=== PATIENT | female | born 1940 | race Caucasian/White ===

== ENCOUNTER → 2019-08-10 07:23 | Outpatient (CLI) | payer MEDICARE, SELFPAY ==
[2019-08-10 08:29] LABS: BUN Creatinine Ratio 31.4 (6-22); Blood Urea Nitrogen 22 mg/dL (7-17); Calcium 9.7 mg/dL (8.4-10.2); Carbon Dioxide 28 mmol/L (22-32); Chloride 98 mmol/L (98-107); Cholesterol 144 mg/dL (140-199); Estimated Glomerular Filt Rate > 60.0 mL/min (>60); Glucose 89 mg/dL (80-110); HDL Cholesterol 74 mg/dL (40-60); HEMOLYSIS < 15 (0-50); LDL Cholesterol Calculated 58 mg/dL (<100); Potassium 4.2 mmol/L (3.4-5.1); Sodium 134 mmol/L (137-145); Triglycerides 58 mg/dL (35-150)
[2019-08-10 09:00] LABS: Thyroid Stimulating Hormone 5.13 uIU/mL (0.47-4.68)
== END ==
PROVIDERS: Visit Provider Nurse Practitioner
DX: I10 Essential (primary) hypertension (principal); E03.9 Hypothyroidism, unspecified; E78.5 Hyperlipidemia, unspecified; Z79.899 Other long term (current) drug therapy
CPT/HCPCS: 36415; 80048; 80061; 84443

== ENCOUNTER → 2019-11-29 08:30 | Outpatient (CLI) | payer MEDICARE, SELFPAY ==
[2019-11-29 10:26] LABS: Thyroid Stimulating Hormone 4.32 uIU/mL (0.47-4.68)
== END ==
PROVIDERS: PCP Nurse Practitioner; Referring Provider Nurse Practitioner; Visit Provider Nurse Practitioner
DX: Z79.899 Other long term (current) drug therapy (principal); E03.9 Hypothyroidism, unspecified
CPT/HCPCS: 36415; 84443

== ENCOUNTER → 2020-04-20 13:20 | Outpatient (CLI) | payer MEDICARE, SELFPAY | PROVIDERS: PCP Nurse Practitioner; Referring Provider Nurse Practitioner; Visit Provider Nurse Practitioner | DX: M85.832 Other specified disorders of bone density and structure, left forearm (principal); Z78.0 Asymptomatic menopausal state; E07.9 Disorder of thyroid, unspecified | CPT/HCPCS: 77080 ==

== ENCOUNTER → 2020-04-25 17:09 | Outpatient (CLI) | payer MEDICARE, SELFPAY ==
--- NOTE | 2020-04-25 17:23 | DI.MG.S_ITS ---
Patient Name: ALONA CERDA date: 1940 Sex: F Attending Physician: Shan Indications: Date: 04/25/2020 17:14 At the request of: LAURE MOJICA Procedure: MM screening mammo BI BILATERAL DIGITAL SCREENING MAMMOGRAM 3D/2D WITH CAD: 04/25/2020 CLINICAL: Routine screening. Comparison is made to exams dated: 12/07/2018 mammogram, 12/03/2017 mammogram, and 12/02/2016 mammogram - outside location. There are scattered fibroglandular elements in both breasts. Current study was also evaluated with a Computer Aided Detection (CAD) system. There is possible architectural distortion in the left breast middle depth superior region seen on the mediolateral oblique view only. No other significant masses, calcifications, or other findings are seen in either breast. IMPRESSION: INCOMPLETE: NEEDS ADDITIONAL IMAGING EVALUATION The possible architectural distortion in the left breast is indeterminate. Additional views with possible ultrasound are recommended. This exam was interpreted at Station ID: [id number]. NOTE: For mammograms, a report in lay terms will be sent to the patient. Approximately 15% of breast malignancies will not be visualized mammographically. In the management of a palpable breast mass, a negative mammogram must not discourage biopsy of a clinically suspicious lesion. Electronically Signed By: Vlad Echavarria M.D. slc/:04/25/2020 18:32:07 letter sent: Additional Imaging Needed Continued Report - Page 2 of 2 Patient Name: ALONA CERDA date: 1940 Sex: F Attending Physician: Shan Indications: Date: 04/25/2020 17:14 At the request of: LAURE MOJICA Procedure: MM screening mammo BI ACR BI-RADS Category 0: Incomplete 3340F
== END ==
PROVIDERS: PCP Nurse Practitioner; Referring Provider Nurse Practitioner; Visit Provider Nurse Practitioner
DX: Z12.31 Encounter for screening mammogram for malignant neoplasm of breast (principal)
CPT/HCPCS: 77063; 77067

== ENCOUNTER → 2020-05-19 13:46 | Outpatient (CLI) | payer MEDICARE, SELFPAY ==
--- NOTE | 2020-05-19 13:47 | DI.US.S_ITS ---
ULTRASOUND OF LEFT BREAST: 05/19/2020 CLINICAL: Patient returns today to evaluate a focal asymmetry in the left breast. Comparison is made to exams dated: 05/19/2020 mammogram, 04/25/2020 mammogram - [facility], 12/07/2018 mammogram, 12/03/2017 mammogram, and 12/02/2016 mammogram - outside location. Color flow and real-time ultrasound of the left breast were performed. Loza scale images of the real-time examination were reviewed. No significant abnormalities were seen sonographically in the left breast. IMPRESSION: NEGATIVE There is no sonographic evidence of malignancy. There is no abnormality seen in the left breast to correspond with the no longer visualized possible architectural distortion seen on previous mammography. This likely represents normal fibroglandular tissue. A 1 year screening mammogram is recommended. Findings and recommendations were conveyed to the patient during today's evaluation. This exam was interpreted at Station ID: [id number]. Electronically Signed By: Lamont Washington M.D. aty/:05/19/2020 14:45:18 letter sent: Normal Exam Ultrasound BI-RADS: 1 Negative
--- NOTE | 2020-05-19 13:47 | DI.MG.S_ITS ---
UNILATERAL LEFT DIGITAL DIAGNOSTIC MAMMOGRAM 3D/2D WITH ADDITIONAL VIEWS: 05/19/2020 CLINICAL: Additional evaluation requested from prior study. Comparison is made to exams dated: 04/25/2020 mammogram - [facility], 12/07/2018 mammogram, and 12/03/2017 mammogram - outside location. There are scattered fibroglandular elements in left breast. Comparison is made to exams dated: 01/13/2019 mammogram, 05/20/2018 mammogram, and 04/25/2018 mammogram - [facility]. The tissue of both breasts is heterogeneously dense. This may lower the sensitivity of mammography. The previously described possible architectural distortion in the left breast middle depth superior region seen on the mediolateral oblique view only is not reproduced and presumably represented superimposed breast tissue. This is not confirmed in additional views. No other significant masses or calcifications are seen in the breast. IMPRESSION: INCOMPLETE: NEEDS ADDITIONAL IMAGING EVALUATION An ultrasound is recommended to confirm the no longer seen possible architectural distortion in the left breast middle depth superior region which is scheduled to immediately follow this study. This exam was interpreted at Station ID: [id number]. NOTE: For mammograms, a report in lay terms will be sent to the patient. Approximately 15% of breast malignancies will not be visualized mammographically. In the management of a palpable breast mass, a negative mammogram must not discourage biopsy of a clinically suspicious lesion. Electronically Signed By: Lamont Washington M.D. aty/:05/19/2020 14:43:34 ACR BI-RADS Category 0: Incomplete 3340F
== END ==
PROVIDERS: PCP Nurse Practitioner; Referring Provider Nurse Practitioner; Visit Provider Nurse Practitioner
DX: R92.8 Other abnormal and inconclusive findings on diagnostic imaging of breast (principal)
CPT/HCPCS: 76642; 77065; G0279

== ENCOUNTER → 2020-07-18 07:11 | Outpatient (CLI) | payer MEDICARE, SELFPAY ==
[2020-07-18 08:23] LABS: Alanine Aminotransferase 25 IU/L (<35); Albumin Globulin Ratio 1.5 (1.0-2.8); Alkaline Phosphatase 82 U/L (38-126); Aspartate Aminotransferase 30 IU/L (14-36); Bilirubin Total 0.7 mg/dL (0.2-1.3); Blood Urea Nitrogen 18 mg/dL (7-17); Calcium 9.4 mg/dL (8.4-10.2); Carbon Dioxide 30 mmol/L (22-32); Chloride 99 mmol/L (98-107); Cholesterol 138 mg/dL (140-199); Estimated Glomerular Filt Rate > 60.0 mL/min (>60); Globulin 2.7 g/dL (1.7-4.1); Glucose 97 mg/dL (80-110); HDL Cholesterol 67 mg/dL (40-60); HEMOLYSIS < 15 (0-50); LDL Cholesterol Calculated 58 mg/dL (<100); Potassium 4.2 mmol/L (3.4-5.1); Sodium 132 mmol/L (137-145); Total Protein 6.7 g/dL (6.3-8.2); Triglycerides 67 mg/dL (35-150)
[2020-07-18 08:56] LABS: Thyroid Stimulating Hormone 4.63 uIU/mL (0.47-4.68)
[2020-07-18 14:40] LABS: Microalbumin Urine Random < 0.6 mg/dL (0-1.6)
[2020-07-18 14:42] LABS: Creatinine Urine Random 45.6 mg/dL
== END ==
PROVIDERS: PCP Nurse Practitioner; Referring Provider Nurse Practitioner; Visit Provider Nurse Practitioner
DX: E03.9 Hypothyroidism, unspecified (principal); E78.5 Hyperlipidemia, unspecified; I10 Essential (primary) hypertension; Z79.899 Other long term (current) drug therapy
CPT/HCPCS: 36415; 80053; 80061; 82043; 82570; 84443

== ENCOUNTER → 2020-09-08 12:10 | Outpatient (CLI) | payer MEDICARE, SELFPAY ==
[2020-09-08] MEDS: COVID-19 VACC #1, MRNA(MOD) 100 MCG/0.5 ML VIAL IM (12:20)
== END ==
PROVIDERS: PCP Nurse Practitioner; Visit Provider Internal Medicine
DX: Z23 Encounter for immunization (principal)
CPT/HCPCS: 0011A; 91301

== ENCOUNTER → 2020-10-06 12:32 | Outpatient (CLI) | payer MEDICARE, SELFPAY ==
[2020-10-06] MEDS: COVID-19 VACC #2, MRNA(MOD) 100 MCG/0.5 ML VIAL IM (12:38)
== END ==
PROVIDERS: PCP Nurse Practitioner; Visit Provider Internal Medicine
DX: Z23 Encounter for immunization (principal)
CPT/HCPCS: 0012A; 91301

== ENCOUNTER → 2020-11-21 15:41 | Outpatient (CLI) | payer MEDICARE, SELFPAY ==
--- NOTE | 2020-11-21 15:44 | DI.RAD.S_ITS ---
PROCEDURE: XR LUMBAR SPINE 2-3V INDICATIONS: Evaluate worsening left hip and lower back pain TECHNIQUE: 3 views of the lumbar spine were acquired. COMPARISON: None. FINDINGS: Bones: There is posterior lateral gertrude and pedicle screw fixation of the lowest 2 lumbar vertebrae. Above this, is an abnormal appearing vertebra, which may represent a congenital fusion anomaly. This results in some curvature of the spine. No acute vertebral body compression fractures. No suspicious bony lesions. Multilevel degenerative disc space loss and posterior facet arthropathy. Soft tissues: Overlying bowel gas pattern is normal. No suspicious soft tissue calcifications. IMPRESSION: 1. Consider congenital fusion anomaly of a mid lumbar vertebra. 2. No evidence acute bony abnormality of the lumbar spine. If clinical suspicion and/or symptoms persist, further assessment with repeat plain films, or advanced imaging (e.g., CT, MRI, or bone scan) may be helpful for further assessment. Dictated by: Marky Gold M.D. on 11/21/2020 at 17:06 Approved by: Marky Gold M.D. on 11/21/2020 at 17:08
--- NOTE | 2020-11-21 15:44 | DI.RAD.S_ITS ---
PROCEDURE: XR HIP W PEL IF DONE LT 2V INDICATIONS: Evaluate worsening left hip and lower back pain TECHNIQUE: AP pelvis with lateral view(s) of the left hip(s). COMPARISON: None. FINDINGS: Bones: Expected appearance of total left hip arthroplasty. Lower lumbar fusion. No evidence of hardware failure or loosening. No fractures or dislocations. Pelvic ring appears intact. No suspicious bony lesions. Soft tissues: The visualized bowel gas pattern is normal. No suspicious soft tissue calcifications. IMPRESSION: Expected appearance of total left hip arthroplasty. No evidence acute bony abnormality of the pelvis and left hip. If clinical suspicion and/or symptoms persist, further assessment with repeat plain films, or advanced imaging (e.g., CT, MRI, or bone scan) may be helpful for further assessment. Dictated by: Marky Gold M.D. on 11/21/2020 at 17:05 Approved by: Marky Gold M.D. on 11/21/2020 at 17:05
== END ==
PROVIDERS: PCP Nurse Practitioner; Referring Provider Nurse Practitioner; Visit Provider Nurse Practitioner
DX: M54.5 Low back pain (principal); M47.816 Spondylosis without myelopathy or radiculopathy, lumbar region; M25.552 Pain in left hip; Z96.642 Presence of left artificial hip joint; Z98.1 Arthrodesis status
CPT/HCPCS: 72100; 73502

== ENCOUNTER → 2020-12-16 10:05 | Outpatient (CLI) | payer MEDICARE, SELFPAY ==
[2020-12-16 12:11] LABS: COVID19 -Nasal RAPID Negative (Negative)
== END ==
PROVIDERS: Family Provider Nurse Practitioner; PCP Nurse Practitioner; Referring Provider Student in an Organized Health Care Education/Training Program; Visit Provider Student in an Organized Health Care Education/Training Program
DX: Z01.812 Encounter for preprocedural laboratory examination (principal); Z20.822 Contact with and (suspected) exposure to COVID-19
CPT/HCPCS: 87635; C9803

== ENCOUNTER 2020-12-19 07:07 | Day surgery (SDC) | payer MEDICARE, SELFPAY ==
[2020-12-19] MEDS: CATARACT EYE COMPOUND (10 DROPS/SYRINGE) 3 DROPS EYE-OP (07:18)
[2020-12-19] MEDS: PROPARACAINE 0.5% OPHTH SOL 2 DROPS EYE-OP (07:18)
[2020-12-19 07:37] VITALS: BP 136/73; PULSE 78; RESP 16; TEMP 36.3; O2SAT 100
[2020-12-19 07:43] VITALS: BMI 30.2
--- NOTE | 2020-12-19 08:07 | P.OP_ITS ---
Operative Date/Time/Diagnoses Pre-op diagnosis: Nuclear Cataract Left eye Post-op diagnosis: same Procedure & Clinicians Same procedure as scheduled: Yes Surgeon: Norris Lee Anesthesia Type: MAC +/- and Sedation Operative Notes Procedure in detail: Patient brought to the operating suite. Tetracaine drops placed in the left eye. Marking instrument was used to purvi the vertical and horizontal meridains. Patient was prepped and draped in sterile manner. Wire lid speculum was placed in the eye. The marking instrument was used to purvi the 10 degree meridian. Betadine drops were placed on the eye. This was irrigated. Lidocaine jelly was placed on the eye. A paracentesis port was created with a side-port blade. 0.1 mL 1% preservative free lidocaine was injected into the anterior chamber. The anterior chamber was deepened with viscoelastic. 2.6 mm keratome was used to create a temporal clear corneal incision. Cystotome and Utrata forceps were used to create continuous tear capsulorrhexis. Balanced salt solution was used to hydro dissect the nucleus. The phacoemulsification handpiece was inserted and the nucleus was removed using the stop and chop technique. The irrigation aspiration handpiece was inserted and the remaining cortex was removed. Anterior chamber was deepened with viscoelastic. An Umana [id number] intraocular lens with a power of 21.0 was injected into the capsular bag. Irrigation aspiration handpiece was inserted and the remaining viscoelastic was removed. The lens was rotated to the 10 degree meridian. Incision was hydrated with balanced salt solution and found to be leak free with pressure with Weck- Anne Marie sponges. 0.1 mL Vigamox injected anterior chamber. 0.3 mL Kenalog 10 mg was injected subconjunctivally. Lid speculum was removed. The patient left the operating room in excellent condition. Complications: none Post-operative Condition: stable Disposition: same day surgery
--- NOTE | 2020-12-19 08:07 | PM.PREOP ---
Pre-operative Note Interval Note History & Physical reviewed/Exam performed by Physician: Yes Changes to H&P: No
[2020-12-19] MEDS: CHONDROIDTIN/SOD HYALURONATE 1.05 ML SYRINGE INTRAOCULA (08:25)
[2020-12-19] MEDS: PHENYLEPHRINE/LIDOCAINE VIAL (OR) 0.2 ML EYE-OP (08:25)
[2020-12-19] MEDS: MOXIFLOXACIN INJ 4 MG/0.8 ML VIAL 0.5 MG EYE-OP (08:25)
[2020-12-19] MEDS: BALANCED SALT IRRIG SOLN NO.2 500 ML, EPINEPHrine 1 MG IRR (08:26)
[2020-12-19] MEDS: LIDOCAINE 2% (GLYDO) 6 ML GEL TOP (08:26)
[2020-12-19] MEDS: TRIAMCINOLONE 50 MG/5 ML VIAL INJ (08:26)
[2020-12-19] MEDS: TETRACAINE 0.5% OPHTH DROPS 4 ML 2 DROPS EYE-OP (08:26)
[2020-12-19 08:45] VITALS: BP 127/67; PULSE 72; RESP 13; TEMP 36.3; O2SAT 100
== END 2020-12-19 09:06 | disposition home or self-care (01) ==
PROVIDERS: Family Provider Nurse Practitioner; PCP Nurse Practitioner; Referring Provider Nurse Practitioner; Visit Provider Ophthalmology
PROC: (CPT 66984; principal; 2020-12-19 08:15)
DX: H25.12 Age-related nuclear cataract, left eye (principal); I10 Essential (primary) hypertension; E03.9 Hypothyroidism, unspecified; E78.00 Pure hypercholesterolemia, unspecified
CPT/HCPCS: 66984; J0171; J2250; J3010; J3301; V2787

== ENCOUNTER → 2021-01-01 11:42 | Outpatient (CLI) | payer MEDICARE, SELFPAY ==
[2021-01-01 12:32] LABS: COVID19 -Nasal RAPID Negative (Negative)
== END ==
PROVIDERS: PCP Nurse Practitioner; Visit Provider Student in an Organized Health Care Education/Training Program
DX: Z01.812 Encounter for preprocedural laboratory examination (principal); Z20.822 Contact with and (suspected) exposure to COVID-19
CPT/HCPCS: 87635; C9803

== ENCOUNTER 2021-01-02 06:21 | Day surgery (SDC) | payer MEDICARE, SELFPAY ==
[2021-01-02] MEDS: PROPARACAINE 0.5% OPHTH SOL 2 DROPS EYE-OP (07:01)
[2021-01-02] MEDS: CATARACT EYE COMPOUND (10 DROPS/SYRINGE) 3 DROPS EYE-OP (07:02)
[2021-01-02 07:08] VITALS: BP 165/70; PULSE 73; RESP 16; TEMP 36.4; O2SAT 100; BMI 26.6
--- NOTE | 2021-01-02 07:26 | PM.PREOP ---
Pre-operative Note Interval Note History & Physical reviewed/Exam performed by Physician: Yes Changes to H&P: No
--- NOTE | 2021-01-02 07:26 | P.OP_ITS ---
Operative Date/Time/Diagnoses Pre-op diagnosis: Nuclear cataract right eye Procedure & Clinicians Procedure: Cataract Surgery Same procedure as scheduled: Yes Surgeon: Norris Lee Anesthesia Type: MAC +/- and Sedation Operative Notes Procedure in detail: Patient brought to the operating suite. Tetracaine drops placed in the right eye. Marking instrument was used to purvi vertical and horizontal meridians. Patient was prepped and draped in sterile manner. Wire lid speculum was placed in the eye. Marking instrument was used to purvi 15 degree meridian. Betadine drops were placed on the eye. This was irrigated. Lidocaine jelly was placed on the eye. A paracentesis port was created with a side-port blade. 0.1 mL 1% preservative free lidocaine was injected into the anterior chamber. The anterior chamber was deepened with viscoelastic. 2.6 mm keratome was used to create a temporal clear corneal incision. Cystotome and Utrata forceps were used to create continuous tear capsulorrhexis. Balanced salt solution was used to hydro dissect the nucleus. The phacoemulsification handpiece was inserted and the nucleus was removed using the stop and chop technique. The irrigation aspiration handpiece was inserted and the remaining cortex was removed. Anterior chamber was deepened with viscoelastic. An Umana [id number] intraocular lens with a power of 22.5 was injected into the capsular bag. Irrigation aspiration handpiece was inserted and the remaining viscoelastic was removed. The lens was rotated to the 15 degree meridian. Incision was hydrated with balanced salt solution and found to be leak free with pressure with Weck- Anne Marie sponges. 0.1 mL Vigamox injected anterior chamber. 0.3 mL Kenalog 10 mg was injected subconjunctivally. Lid speculum was removed. The patient left the operating room in excellent condition. Complications: none Post-operative Condition: stable Disposition: same day surgery
[2021-01-02] MEDS: MOXIFLOXACIN INJ 4 MG/0.8 ML VIAL 0.5 MG EYE-OP (07:53)
[2021-01-02] MEDS: PHENYLEPHRINE/LIDOCAINE VIAL (OR) 0.2 ML EYE-OP (07:53)
[2021-01-02] MEDS: TRIAMCINOLONE 50 MG/5 ML VIAL INJ (07:53)
[2021-01-02] MEDS: CHONDROIDTIN/SOD HYALURONATE 1.05 ML SYRINGE INTRAOCULA (07:53)
[2021-01-02] MEDS: LIDOCAINE 2% (GLYDO) 6 ML GEL TOP (07:53)
[2021-01-02] MEDS: TETRACAINE 0.5% OPHTH DROPS 4 ML 2 DROPS EYE-OP (07:54)
[2021-01-02] MEDS: BALANCED SALT IRRIG SOLN NO.2 500 ML, EPINEPHrine 1 MG IRR (07:55)
[2021-01-02 08:04] VITALS: BP 138/70; PULSE 62; RESP 14; TEMP 36.6; O2SAT 100
[2021-01-02 08:21] VITALS: BP 126/71; PULSE 61; RESP 14; TEMP 36.1; O2SAT 100
== END 2021-01-02 08:25 | disposition home or self-care (01) ==
PROVIDERS: PCP Nurse Practitioner; Referring Provider Ophthalmology; Visit Provider Ophthalmology
PROC: (CPT 66984; principal; 2021-01-02 07:45)
DX: H25.11 Age-related nuclear cataract, right eye (principal); E03.9 Hypothyroidism, unspecified; E78.00 Pure hypercholesterolemia, unspecified; I10 Essential (primary) hypertension
CPT/HCPCS: 66984; J0171; J2250; J3010; J3301; V2787

== ENCOUNTER → 2021-02-16 10:39 | Outpatient (CLI) | payer MEDICARE, SELFPAY ==
[2021-02-16 12:54] LABS: Thyroid Stimulating Hormone 2.94 uIU/mL (0.47-4.68)
== END ==
PROVIDERS: PCP Nurse Practitioner; Referring Provider Nurse Practitioner; Visit Provider Nurse Practitioner
DX: E03.9 Hypothyroidism, unspecified (principal); E78.5 Hyperlipidemia, unspecified; I10 Essential (primary) hypertension; Z79.899 Other long term (current) drug therapy
CPT/HCPCS: 36415; 84443

== ENCOUNTER → 2021-03-10 14:08 | Outpatient (CLI) | payer MEDICARE, SELFPAY ==
--- NOTE | 2021-03-10 14:09 | DI.MRI.S_ITS ---
PROCEDURE: MR LUMBAR SPINE WO CON INDICATIONS: Persistent pain lumbar spine TECHNIQUE: Noncontrast sagittal T1 spin echo and T2 fast echo, sagittal STIR, axial T1 and T2 fast spin echo through the lumbar spine. In cases with scoliosis, additional coronal T2 fast spin echo may be performed. COMPARISON: [facility], CR, XR LUMBAR SPINE 2-3V, 11/21/2020, 15:50. FINDINGS: Image quality: This examination is limited by involuntary motion artifact. There is artifact associated with the metallic hardware. Alignment and Curvature: There is olki-ia-bdzmwekh S shaped scoliosis, with a primary dextroconvex thoracolumbar component. There is grade 1/2 retrolisthesis seen at the L2-L3 level. Minimal retrolisthesis is seen at L3-L4. Bone Marrow: Marrow is of normal overall signal. No acute vertebral body compression fractures. Spinal Cord: Conus medullaris terminates at the L1 level. Visualized cord demonstrates normal signal and size. Paraspinous Soft Tissues: No paravertebral masses. T12-L1: Hsqy-[id number] loss of disc height and disc signal can be seen. Mild to moderate disc bulge is seen, with a mild central disc protrusion. Mild to moderate facet hypertrophy is seen. There is moderate right-sided and moderate to severe left-sided neural foraminal narrowing seen. There is a degree of compression seen upon the exiting left T12 nerve root. Mild central canal narrowing is seen. L1-L2: At least moderate loss of disc height and disc signal can be seen. Reactive marrow endplate changes are seen which are hypointense on T1-weighted imaging and hyperintense on T2 weighted imaging, which is most consistent with edema (Modic type I changes). At least moderate disc bulge is seen, which is eccentric to the left. There is a central disc protrusion. Moderate facet joint hypertrophy is seen. Associated hypertrophy of the ligamentum flavum can be seen. There is at least moderate right-sided and moderate to severe left-sided neural foraminal narrowing seen. There is a degree of compression seen upon the exiting left L1 nerve root. Moderate to severe central canal narrowing is seen at this level, as on series 7, image 13. There is compression seen upon the conus medullaris. L2-L3: Moderate to severe loss of disc height and disc signal can be seen. At least moderate disc bulge is seen at this level. Moderate facet joint hypertrophy is seen. There is moderate to severe bilateral neural foraminal narrowing seen, right worse than left. There is a degree of compression seen upon the exiting nerve roots. Moderate to severe central canal narrowing is seen, as on series 7, image 17. L3-L4: Moderate to severe loss of disc height and disc signal can be seen on the right side. Moderate disc bulge is seen, with a central disc protrusion. Moderate to prominent facet hypertrophy is seen at this level. There is moderate to severe right-sided neural foraminal narrowing seen, with associated compression upon the exiting right L3 nerve root. Moderate left-sided neural foraminal narrowing is seen. Moderate to severe central canal narrowing is seen at this level, as on series 7, image 21. L4-L5: Postoperative changes are seen at this level, with bilateral pedicle screws and vertical fixation rods. There has been removal of portions of the posterior elements. Mild loss of disc height is seen. Loss of disc signal is seen. No significant neural foraminal or central canal narrowing can be seen. L5-S1: Moderate to severe loss of disc height and disc signal can be seen. Moderate generalized disc bulge is seen. Reactive marrow endplate changes are seen, which demonstrate mixed T1 weighted and T2-weighted signal, and are attributed to a combination of edema and fatty metaplasia (Modic type I and Modic type II changes). Moderate facet joint hypertrophy is seen. There is moderate to severe bilateral neural foraminal narrowing seen at this level. There is a degree of compression seen upon the exiting nerve roots. Mild central canal narrowing is seen. IMPRESSION: Multiple levels of relatively prominent lumbar spine degenerative change can be seen. There is moderate to severe central canal narrowing seen at the L1-L2 level, with associated compression upon the conus medullaris. Several sites of significant neural foraminal narrowing can be seen, with associated exiting nerve root compression. S shaped scoliosis. Unremarkable L4-5 postoperative hardware. Dictated by: Thomas Black M.D. on 03/12/2021 at 10:20 Approved by: Thomas Black M.D. on 03/12/2021 at 10:26
== END ==
PROVIDERS: PCP Nurse Practitioner; Referring Provider Nurse Practitioner; Visit Provider Nurse Practitioner
DX: M54.5 Low back pain (principal); M79.605 Pain in left leg; M47.816 Spondylosis without myelopathy or radiculopathy, lumbar region; M47.817 Spondylosis without myelopathy or radiculopathy, lumbosacral region; M48.061 Spinal stenosis, lumbar region without neurogenic claudication; M48.07 Spinal stenosis, lumbosacral region; M41.9 Scoliosis, unspecified; Z98.1 Arthrodesis status
CPT/HCPCS: 72148

== ENCOUNTER 2021-04-02 09:45 | Outpatient (RCR) | payer MEDICARE, SELFPAY ==
--- NOTE | 2020-12-05 14:20 | PT.OIE ---
Current Diagnoses Other chronic pain (12/05/20) Pain in left hip (12/05/20) Low back pain (12/05/20) Dorsalgia, unspecified (12/05/20) Pain in left leg (12/05/20) Other abnormalities of gait and mobility (12/05/20) Abnormal posture (12/05/20) Weakness (12/05/20) Past Medical History (Last Updated 11/22/20 @ 08:58 by RIGOBERTO Moulton) Actinic keratitis Actinic keratosis (~2016) Allergies (~1973) Alopecia (~2015) Asthma Chicken pox (~1942) Chronic back pain Chronic left hip pain Degenerative joint disease (DJD) of lumbar spine (~1993) Diverticular disease (~2012) Glaucoma Impaired fasting glucose Lumbar pain with radiation down left leg Measles (~1946) Plantar warts Pulmonary embolism (~2009) Skin cancer (~1992) Vaginal atrophy Past Surgical History (Last Reviewed 11/21/20 @ 15:53 by RGIOBERTO Moulton) Anesthesia History of back surgery (~2013) History of back surgery (~2009) History of hysterectomy (~2009) History of left knee replacement (~2002) History of right hip replacement (~2013) History of urinary incontinence (~2009) Status post right knee replacement (~2006) Visit Care Team Role Provider Type RIGOBERTO Moulton Attending Provider Advanced Relationship Manager Family Provider Primary Care Provider Referring Provider Specialty: Family Practice Address: [address] [place] [address], [facility] Email: [email or web address] Physical Therapy Initial Evaluation PT-OP-A Visit Information Start: 11/29/20 17:37 Freq: Status: Active Protocol: Document 12/05/20 11:25 [facility] (Rec: 12/05/20 12:10 [facility] [id number]) Out-Patient Physical Therapy Visit Information Visit Information Visit Type Initial Evaluation Visit Note 08/20 Visit Start Time 11:22 Visit Stop Time 12:05 Total Visit Minutes 43 Visit Number 1 Number of FLAVORINGS COMPOUNDER Visits 0 PT-OP-B Current Condition Start: 11/29/20 17:37 Freq: Status: Active Protocol: Document 12/05/20 11:25 [facility] (Rec: 12/05/20 12:10 [facility] [id number]) Current Condition History of Current Condition Onset Date 6 weeks ago Current Complaints L glute/SI pain History of Current Condition Pt has had chornic back pain with hx of L4-5 fusion in 2004 then repair again in 2009 w/ L3-4 then 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 She has babied back since surgeries and notes flex is worse than ext typically. Pt reports she has tingling and pain in L buttocks and standing is the worst where it will grab and tingle in buttocks L and can relieve by sititng down. Pt notes she is always hiked up on L side. Pt exercises with a sales trainer on zoom w/ focus on stretches. Pt reports pain has increased over the past 6 weeks. 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 Prior Treatments and Tests Therapeutic massage-painful during, does not help, pulsed magnawave-did not help Treatment Goals Patient/Caregiver Goals Be able stand longer without pain Personal Factors Other Personal Factors That May Effect B TKAs, hysterectomy, L4-5 Therapy/Recovery fusion then repair, L TONY post approach PT-OP-C Subjective Start: 11/29/20 17:37 Freq: Status: Active Protocol: Document 12/05/20 11:25 [facility] (Rec: 12/05/20 12:10 [facility] [id number]) Patient Questionnaires Lower Extremity Functional Scale LEFS Score 53 Oswestry Low Back Index Oswestry Score 8/50 OP-PT Pain Assessment Location L glute Pain Location Details L glute & L SI region Intensity 4 Scale Used Numeric (0 - 10) Description Tingling Description- Other grabs Frequency Intermittent Radiating Location sometimes into groin Pain Aggravating Factors Bending Other Pain Aggravating Factors standing even a few min when fixing animal food, garden Other Pain Alleviating Factors stretches PT-OP-D Balance Start: 11/29/20 17:37 Freq: Status: Active Protocol: Document 12/05/20 11:25 [facility] (Rec: 12/05/20 12:10 [facility] [id number]) Balance Tests Single Limb Standing Single Limb- Right 5 Single Limb- Left 4 PT-OP-F Manual Assessment Start: 11/29/20 17:37 Freq: Status: Active Protocol: Document 12/05/20 11:25 [facility] (Rec: 12/05/20 12:10 [facility] [id number]) Manual Assessments Soft Tissue Assessment Soft Tissue Mobility Assessment tightness in L glute/QL Joint Mobility Assessment Joint Mobility Assessment L iliac crest higher, equal greater trochanters PT-OP-G Mobility & Gait Start: 11/29/20 17:37 Freq: Status: Active Protocol: Document 12/05/20 11:25 [facility] (Rec: 12/05/20 12:10 [facility] [id number]) OP Gait Assessment Comments Gait Comments tightness L glutes & QL PT-OP-J Posture/Palpation/Skin Start: 11/29/20 17:37 Freq: Status: Active Protocol: Document 12/05/20 11:25 [facility] (Rec: 12/05/20 12:10 [facility] [id number]) Posture Evaluation Radha Postural Classification System Radha Postural Classifications Posterior/Anterior Vertebral Compression Test 1 Lumbar Protective Mechanism Left AP 1 Lumbar Protective Mechanism Right AP 0 Lumbar Protective Mechanism Left PA 1 Lumbar Protective Mechanism Right PA 0 Comments Posture Comments L pelvic shear, L>R ER of foot , R rotation, hands behind creates more comfort, kyphosis fwd head PT-OP-K Range of Motion Start: 11/29/20 17:37 Freq: Status: Active Protocol: Document 12/05/20 11:25 [facility] (Rec: 12/05/20 12:10 [facility] [id number]) Lumbar Spine Range of Motion Lumbar Spine Active Degrees Flexion 54 Extension 13 Rotation Left 64 Rotation Right 58 Lateral Flexion Left 6 Lateral Flexion Right 16 Comments pain in hip coming up from flex & pain w/L SB PT-OP-L Special Tests Start: 11/29/20 17:37 Freq: Status: Active Protocol: Document 12/05/20 11:25 [facility] (Rec: 12/05/20 12:10 [facility] [id number]) Special Tests Lumbar Spine Special Tests Víctor Test Results WNL Straight Leg Raise Test Results L 68, R 64 Slump Test Results neg B PT-OP-M Strength Start: 11/29/20 17:37 Freq: Status: Active Protocol: Document 12/05/20 11:25 [facility] (Rec: 12/05/20 12:10 [facility] [id number]) Hip Strength Hip Manual Muscle Testing Right Flexion (L2) 3 Fair Extension (S1) 3+ Fair+ Abduction 3+ Fair+ External Rotation 3+ Fair+ Internal Rotation 5 Normal Left Flexion (L2) 3 Fair Extension (S1) 3+ Fair+ Abduction 3 Fair External Rotation 2+ Poor+ Internal Rotation 5 Normal Knee Strength Knee Manual Muscle Testing Right Flexion (S2) 5 Normal Extension (L3) 5 Normal Left Flexion (S2) 5 Normal Extension (L3) 5 Normal Ankle/Foot Strength Ankle and Foot Manual Muscle Testing Right Dorsiflexion (L4) 5 Normal Plantarflexion (S1) 5 Normal Left Dorsiflexion (L4) 5 Normal Plantarflexion (S1) 5 Normal Comments PF tested seated PT-OP-Q Treatments Start: 11/29/20 17:37 Freq: Status: Active Protocol: Document 12/05/20 11:25 [facility] (Rec: 12/05/20 12:10 [facility] [id number]) Therapeutic Activity Therapeutic Activity posture Comments work on dec pelvic shear & SB in mirror PT-OP-T Assessment and Plan Start: 11/29/20 17:37 Freq: Status: Active Protocol: Document 12/05/20 11:25 [facility] (Rec: 12/05/20 12:10 [facility] [id number]) Physical Therapy Assessment Rehab Potential Rehabilitation Potential Good Evaluation Complexity Number of Personal Factors/Comorbidities 3 or More Number of Body Systems Impaired 4 or More Clinical Presentation at Evaluation Evolving Impairments Impairments Activity Tolerance,Balance, Functional Activities, Functional Mobility,Gait,Pain, Posture,ROM,Soft Tissue Mobility,Strength Goals activities Custodial Goal (LTG) Pt will be able to garden as she wishes without inc pain. LTG Duration 02/04/21 posture Model Dresser Goal (LTG) Pt will have improved posture by improvement of VCT to at least 4/5 without cuieng. LTG Duration 02/04/21 strength Short Term Goal (STG) Pt will be indep w/HEP. STG Duration 01/04/21 Model Dresser Goal (LTG) Pt will have improved strength of hips to at least 4/5 in all planes and at least 3/5 in all planes for LPM to show imrpoved stability to improve pt's mechanics and ability to particiapte in typical activities without pain. LTG Duration 02/04/21 balance Custodial Goal (LTG) Pt will improve SLS to 10 sec B without significant lat shearing. LTG Duration 02/04/21 standing Short Term Goal (STG) Pt will be able to stand to prep animal meals without increased pain. STG Duration 01/04/21 Custodial Goal (LTG) Pt will be able to stand as needed for all kitchen activties and when out in town without inc pain. LTG Duration 02/04/21 Assessment Summary Assessment Pt presents w/main c/o of L glute pain/tingling that occ wraps into ant hip and up to L SI. She has chronic back and L hip pain, but this pain she has been havign is new over the past 6 weeks with gradual worsening. She has impaired posture w/impaired gait mechanics along with weakness in glutes along w/dec balance which is all likely related. She was able to fix posture some with cuieng which improved iliac crest height and may be contributing to her L hip pain. She would beneift form cont PT to work on these deficits and improve ability to return to typical functional activities. Physical Therapy Plan Frequency and Duration Frequency of Treatment 2x/Week Duration of Treatment 2 months Plan of Care Start Date 12/05/20 Plan of Care End Date 02/04/21 Therapeutic Interventions Therapeutic Interventions Aquatic Therapy,Balance Training,Gait Training,Home Exercise Program,Joint Mobilizations,Manual Therapy, Neuromuscular Re-education, Patient/Caregiver Education, Self-Care/Home Management,Soft Tissue Mobilization,Taping, Therapeutic Activities, Therapeutic Exercises Modalities Cold Pack/Ice Massage,Electric Stimulation,Hot Packs, Ultrasound Next Visit Focus/Plan Next Note Type Treatment Note Next Visit Plan supine core exercises, s/l hip abd & clamshell, prone hip ext, balance board, cont work on posture, STM & joint mobs as needed for improvement of mechanics, PNF
--- NOTE | 2020-12-05 14:21 | PT.OPPOC ---
Physical, Occupational & Speech Therapy At [facility] Current Diagnoses Other chronic pain (12/05/20) Pain in left hip (12/05/20) Low back pain (12/05/20) Dorsalgia, unspecified (12/05/20) Pain in left leg (12/05/20) Other abnormalities of gait and mobility (12/05/20) Abnormal posture (12/05/20) Weakness (12/05/20) Visit Care Team Role Provider Type RIGOBERTO Moulton Attending Provider Advanced Healthcare Advisory Services Manager Family Provider Primary Care Provider Referring Provider Specialty: Family Practice Address: [address] [place] [address], [facility] Email: [email or web address] Plan Of Care PT-OP-T Assessment and Plan Start: 11/29/20 17:37 Freq: Status: Active Protocol: Document 12/05/20 11:25 [facility] (Rec: 12/05/20 12:10 [facility] [id number]) Physical Therapy Assessment Rehab Potential Rehabilitation Potential Good Evaluation Complexity Number of Personal Factors/Comorbidities 3 or More Number of Body Systems Impaired 4 or More Clinical Presentation at Evaluation Evolving Impairments Impairments Activity Tolerance,Balance, Functional Activities, Functional Mobility,Gait,Pain, Posture,ROM,Soft Tissue Mobility,Strength Goals activities Snf Goal (LTG) Pt will be able to garden as she wishes without inc pain. LTG Duration 02/04/21 posture Law Librarian Goal (LTG) Pt will have improved posture by improvement of VCT to at least 4/5 without cuieng. LTG Duration 02/04/21 strength Short Term Goal (STG) Pt will be indep w/HEP. STG Duration 01/04/21 Law Librarian Goal (LTG) Pt will have improved strength of hips to at least 4/5 in all planes and at least 3/5 in all planes for LPM to show imrpoved stability to improve pt's mechanics and ability to particiapte in typical activities without pain. LTG Duration 02/04/21 balance Law Librarian Goal (LTG) Pt will improve SLS to 10 sec B without significant lat shearing. LTG Duration 02/04/21 standing Short Term Goal (STG) Pt will be able to stand to prep animal meals without increased pain. STG Duration 01/04/21 Law Librarian Goal (LTG) Pt will be able to stand as needed for all kitchen activties and when out in town without inc pain. LTG Duration 02/04/21 Assessment Summary Assessment Pt presents w/main c/o of L glute pain/tingling that occ wraps into ant hip and up to L SI. She has chronic back and L hip pain, but this pain she has been havign is new over the past 6 weeks with gradual worsening. She has impaired posture w/impaired gait mechanics along with weakness in glutes along w/dec balance which is all likely related. She was able to fix posture some with cuieng which improved iliac crest height and may be contributing to her L hip pain. She would beneift form cont PT to work on these deficits and improve ability to return to typical functional activities. Physical Therapy Plan Frequency and Duration Frequency of Treatment 2x/Week Duration of Treatment 2 months Plan of Care Start Date 12/05/20 Plan of Care End Date 02/04/21 Therapeutic Interventions Therapeutic Interventions Aquatic Therapy,Balance Training,Gait Training,Home Exercise Program,Joint Mobilizations,Manual Therapy, Neuromuscular Re-education, Patient/Caregiver Education, Self-Care/Home Management,Soft Tissue Mobilization,Taping, Therapeutic Activities, Therapeutic Exercises Modalities Cold Pack/Ice Massage,Electric Stimulation,Hot Packs, Ultrasound Next Visit Focus/Plan Next Note Type Treatment Note Next Visit Plan supine core exercises, s/l hip abd & clamshell, prone hip ext, balance board, cont work on posture, STM & joint mobs as needed for improvement of mechanics, PNF Plan of Care Dates Plan of Care Start Date 12/05/20 Plan of Care End Date 02/04/21 Electronically Signed by: Mone Bettencourt, PT 12/05/20 [id number] Please Sign and Return: I have reviewed this Plan of Care and certify that the skilled therapy services above are required to meet the patient?s needs. Physician Signature Date Printed Name and Credentials Clinical Instructor Signature Printed Name and Credentials
--- NOTE | 2020-12-07 11:20 | PT.OTN ---
Current Diagnoses Other chronic pain (12/07/20) Pain in left hip (12/07/20) Low back pain (12/07/20) Dorsalgia, unspecified (12/07/20) Pain in left leg (12/07/20) Other abnormalities of gait and mobility (12/07/20) Abnormal posture (12/07/20) Weakness (12/07/20) Physical Therapy Treatment Note PT-OP-A Visit Information Start: 11/29/20 17:37 Freq: Status: Active Protocol: Document 12/07/20 10:10 [facility] (Rec: 12/07/20 11:17 [facility] [id number]) Out-Patient Physical Therapy Visit Information Visit Information Visit Type Treatment Note Visit Note 09/20 Visit Start Time 10:31 Visit Stop Time 11:13 Total Visit Minutes 42 Visit Number 2 Number of LICENSED PHARMACIST Visits 0 PT-OP-B Current Condition Start: 11/29/20 17:37 Freq: Status: Active Protocol: Document 12/05/20 11:25 [facility] (Rec: 12/05/20 12:10 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 She has babied back since surgeries and notes flex is worse than ext typically. Pt reports she has tingling and pain in L buttocks and standing is the worst where it will grab and tingle in buttocks L and can relieve by sititng down. Pt notes she is always hiked up on L side. Pt exercises with a ultimate hoops trainer on zoom w/ focus on stretches. Pt reports pain has increased over the past 6 weeks. 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 Prior Treatments and Tests Therapeutic massage-painful during, does not help, pulsed magnawave-did not help Treatment Goals Patient/Caregiver Goals Be able stand longer without pain Personal Factors Other Personal Factors That May Effect B TKAs, hysterectomy, L4-5 Therapy/Recovery fusion then repair, L TONY post approach PT-OP-C Subjective Start: 11/29/20 17:37 Freq: Status: Active Protocol: Document 12/07/20 10:10 [facility] (Rec: 12/07/20 11:17 [facility] [id number]) OP-PT Subjective Patient Comments Patient Comments Pt reports working on posture at home. It feels weird PT-OP-D Balance Start: 11/29/20 17:37 Freq: Status: Active Protocol: Document 12/05/20 11:25 [facility] (Rec: 12/05/20 12:10 [facility] [id number]) Balance Tests Single Limb Standing Single Limb- Right 5 Single Limb- Left 4 PT-OP-F Manual Assessment Start: 11/29/20 17:37 Freq: Status: Active Protocol: Document 12/05/20 11:25 [facility] (Rec: 12/05/20 12:10 [facility] [id number]) Manual Assessments Soft Tissue Assessment Soft Tissue Mobility Assessment tightness in L glute/QL Joint Mobility Assessment Joint Mobility Assessment L iliac crest higher, equal greater trochanters PT-OP-G Mobility & Gait Start: 11/29/20 17:37 Freq: Status: Active Protocol: Document 12/05/20 11:25 [facility] (Rec: 12/05/20 12:10 [facility] [id number]) OP Gait Assessment Comments Gait Comments tightness L glutes & QL PT-OP-J Posture/Palpation/Skin Start: 11/29/20 17:37 Freq: Status: Active Protocol: Document 12/05/20 11:25 [facility] (Rec: 12/05/20 12:10 [facility] [id number]) Posture Evaluation Radha Postural Classification System Radha Postural Classifications Posterior/Anterior Vertebral Compression Test 1 Lumbar Protective Mechanism Left AP 1 Lumbar Protective Mechanism Right AP 0 Lumbar Protective Mechanism Left PA 1 Lumbar Protective Mechanism Right PA 0 Comments Posture Comments L pelvic shear, L>R ER of foot , R rotation, hands behind creates more comfort, kyphosis fwd head PT-OP-K Range of Motion Start: 11/29/20 17:37 Freq: Status: Active Protocol: Document 12/05/20 11:25 [facility] (Rec: 12/05/20 12:10 [facility] [id number]) Lumbar Spine Range of Motion Lumbar Spine Active Degrees Flexion 54 Extension 13 Rotation Left 64 Rotation Right 58 Lateral Flexion Left 6 Lateral Flexion Right 16 Comments pain in hip coming up from flex & pain w/L SB PT-OP-L Special Tests Start: 11/29/20 17:37 Freq: Status: Active Protocol: Document 12/05/20 11:25 [facility] (Rec: 12/05/20 12:10 [facility] [id number]) Special Tests Lumbar Spine Special Tests Víctor Test Results WNL Straight Leg Raise Test Results L 68, R 64 Slump Test Results neg B PT-OP-M Strength Start: 11/29/20 17:37 Freq: Status: Active Protocol: Document 12/05/20 11:25 [facility] (Rec: 12/05/20 12:10 [facility] [id number]) Hip Strength Hip Manual Muscle Testing Right Flexion (L2) 3 Fair Extension (S1) 3+ Fair+ Abduction 3+ Fair+ External Rotation 3+ Fair+ Internal Rotation 5 Normal Left Flexion (L2) 3 Fair Extension (S1) 3+ Fair+ Abduction 3 Fair External Rotation 2+ Poor+ Internal Rotation 5 Normal Knee Strength Knee Manual Muscle Testing Right Flexion (S2) 5 Normal Extension (L3) 5 Normal Left Flexion (S2) 5 Normal Extension (L3) 5 Normal Ankle/Foot Strength Ankle and Foot Manual Muscle Testing Right Dorsiflexion (L4) 5 Normal Plantarflexion (S1) 5 Normal Left Dorsiflexion (L4) 5 Normal Plantarflexion (S1) 5 Normal Comments PF tested seated PT-OP-Q Treatments Start: 11/29/20 17:37 Freq: Status: Active Protocol: Document 12/07/20 10:10 [facility] (Rec: 12/07/20 11:17 [facility] [id number]) Gym Equipment Shuttle Balance red clips Comments fwd & side: WBOS & NBOS Therapeutic Exercises Supine Exercises core Supine Exercise Name B isometric flex Side bilateral Reps/Minutes 30 sec x2 Comments DF & knees past hips Prone Exercises ext Prone Exercise Name alt hip Side bilateral Reps/Minutes 15 Sidelying Exercises clamshell Side bilateral Reps/Minutes 10 hip abd Side bilateral Reps/Minutes 10 Therapeutic Activity Therapeutic Activity posture Comments work on dec pelvic shear & SB in mirror & working on thoracic block over pelvis Gait Training Gait Activity gait Comments 1. wt shfits fwd in mirror progress to step through 2. slow fwd wt shifts in mirror 3. fwd walking focus on push off in mirror Manual Therapy Treatment Soft Tissue Mobilization glutes Body Location L Mobilization Type Sustained Pressure Intensity/Depth Moderate Body Position Prone Comments w/hip ER AROM gentle Joint Mobilizations hip Joint L Direction gentle hip on axis FM PT-OP-T Assessment and Plan Start: 11/29/20 17:37 Freq: Status: Active Protocol: Document 12/07/20 10:10 [facility] (Rec: 12/07/20 11:17 [facility] [id number]) Physical Therapy Assessment Goals activities Intake Worker Goal (LTG) Pt will be able to garden as she wishes without inc pain. LTG Duration 02/04/21 posture Intake Worker Goal (LTG) Pt will have improved posture by improvement of VCT to at least 4/5 without cuieng. LTG Duration 02/04/21 strength Short Term Goal (STG) Pt will be indep w/HEP. STG Duration 01/04/21 Intake Worker Goal (LTG) Pt will have improved strength of hips to at least 4/5 in all planes and at least 3/5 in all planes for LPM to show imrpoved stability to improve pt's mechanics and ability to particiapte in typical activities without pain. LTG Duration 02/04/21 balance Alf Goal (LTG) Pt will improve SLS to 10 sec B without significant lat shearing. LTG Duration 02/04/21 standing Short Term Goal (STG) Pt will be able to stand to prep animal meals without increased pain. STG Duration 01/04/21 Alf Goal (LTG) Pt will be able to stand as needed for all kitchen activties and when out in town without inc pain. LTG Duration 02/04/21 Assessment Summary Assessment Pt did well with exercises and was able do with cueing. She had improved posture and gait after cuieng and use of mirror and pt understood importance along w/how to position herself. She had significant improved ER with less tightness after manual treatment Physical Therapy Plan Frequency and Duration Frequency of Treatment 2x/Week Duration of Treatment 2 months Plan of Care Start Date 12/05/20 Plan of Care End Date 02/04/21 Next Visit Focus/Plan Next Note Type Treatment Note Next Visit Plan review HEP, cont to work on STM & joint mobs as needed, PNF, sleep position edu
--- NOTE | 2020-12-11 14:31 | PT.OTN ---
Current Diagnoses Other chronic pain (12/11/20) Pain in left hip (12/11/20) Low back pain (12/11/20) Dorsalgia, unspecified (12/11/20) Pain in left leg (12/11/20) Other abnormalities of gait and mobility (12/11/20) Abnormal posture (12/11/20) Weakness (12/11/20) Physical Therapy Treatment Note PT-OP-A Visit Information Start: 11/29/20 17:37 Freq: Status: Active Protocol: Document 12/11/20 13:45 [facility] (Rec: 12/11/20 14:31 [facility] [id number]) Out-Patient Physical Therapy Visit Information Visit Information Visit Type Treatment Note Visit Note 10/18 Visit Start Time 13:42 Visit Stop Time 14:22 Total Visit Minutes 40 Visit Number 3 Number of QUALITY DIRECTOR Visits 1 PT-OP-B Current Condition Start: 11/29/20 17:37 Freq: Status: Active Protocol: Document 12/05/20 11:25 [facility] (Rec: 12/05/20 12:10 [facility] [id number]) Current Condition History of Current Condition Onset Date 6 weeks ago Current Complaints L glute/SI pain History of Current Condition Pt has had chornic back pain with hx of L4-5 fusion in 2004 then repair again in 2009 w/ L3-4 then 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 She has babied back since surgeries and notes flex is worse than ext typically. Pt reports she has tingling and pain in L buttocks and standing is the worst where it will grab and tingle in buttocks L and can relieve by sititng down. Pt notes she is always hiked up on L side. Pt exercises with a adjunct trainer on zoom w/ focus on stretches. Pt reports pain has increased over the past 6 weeks. 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 Prior Treatments and Tests Therapeutic massage-painful during, does not help, pulsed magnawave-did not help Treatment Goals Patient/Caregiver Goals Be able stand longer without pain Personal Factors Other Personal Factors That May Effect B TKAs, hysterectomy, L4-5 Therapy/Recovery fusion then repair, L TONY post approach PT-OP-C Subjective Start: 11/29/20 17:37 Freq: Status: Active Protocol: Document 12/11/20 13:45 [facility] (Rec: 12/11/20 14:31 [facility] [id number]) OP-PT Subjective Patient Comments Patient Comments Pt has been doing exercises and has had less pain. She has pain during one exercise where she flexes her hips/ knees to 90 and pushes for 30 seconds PT-OP-D Balance Start: 11/29/20 17:37 Freq: Status: Active Protocol: Document 12/05/20 11:25 [facility] (Rec: 12/05/20 12:10 [facility] [id number]) Balance Tests Single Limb Standing Single Limb- Right 5 Single Limb- Left 4 PT-OP-F Manual Assessment Start: 11/29/20 17:37 Freq: Status: Active Protocol: Document 12/05/20 11:25 [facility] (Rec: 12/05/20 12:10 [facility] [id number]) Manual Assessments Soft Tissue Assessment Soft Tissue Mobility Assessment tightness in L glute/QL Joint Mobility Assessment Joint Mobility Assessment L iliac crest higher, equal greater trochanters PT-OP-G Mobility & Gait Start: 11/29/20 17:37 Freq: Status: Active Protocol: Document 12/05/20 11:25 [facility] (Rec: 12/05/20 12:10 [facility] [id number]) OP Gait Assessment Comments Gait Comments tightness L glutes & QL PT-OP-J Posture/Palpation/Skin Start: 11/29/20 17:37 Freq: Status: Active Protocol: Document 12/05/20 11:25 [facility] (Rec: 12/05/20 12:10 [facility] [id number]) Posture Evaluation [facility] Postural Classification System Radha Postural Classifications Posterior/Anterior Vertebral Compression Test 1 Lumbar Protective Mechanism Left AP 1 Lumbar Protective Mechanism Right AP 0 Lumbar Protective Mechanism Left PA 1 Lumbar Protective Mechanism Right PA 0 Comments Posture Comments L pelvic shear, L>R ER of foot , R rotation, hands behind creates more comfort, kyphosis fwd head PT-OP-K Range of Motion Start: 11/29/20 17:37 Freq: Status: Active Protocol: Document 12/05/20 11:25 [facility] (Rec: 12/05/20 12:10 [facility] [id number]) Lumbar Spine Range of Motion Lumbar Spine Active Degrees Flexion 54 Extension 13 Rotation Left 64 Rotation Right 58 Lateral Flexion Left 6 Lateral Flexion Right 16 Comments pain in hip coming up from flex & pain w/L SB PT-OP-L Special Tests Start: 11/29/20 17:37 Freq: Status: Active Protocol: Document 12/05/20 11:25 [facility] (Rec: 12/05/20 12:10 [facility] [id number]) Special Tests Lumbar Spine Special Tests Víctor Test Results WNL Straight Leg Raise Test Results L 68, R 64 Slump Test Results neg B PT-OP-M Strength Start: 11/29/20 17:37 Freq: Status: Active Protocol: Document 12/05/20 11:25 [facility] (Rec: 12/05/20 12:10 [facility] [id number]) Hip Strength Hip Manual Muscle Testing Right Flexion (L2) 3 Fair Extension (S1) 3+ Fair+ Abduction 3+ Fair+ External Rotation 3+ Fair+ Internal Rotation 5 Normal Left Flexion (L2) 3 Fair Extension (S1) 3+ Fair+ Abduction 3 Fair External Rotation 2+ Poor+ Internal Rotation 5 Normal Knee Strength Knee Manual Muscle Testing Right Flexion (S2) 5 Normal Extension (L3) 5 Normal Left Flexion (S2) 5 Normal Extension (L3) 5 Normal Ankle/Foot Strength Ankle and Foot Manual Muscle Testing Right Dorsiflexion (L4) 5 Normal Plantarflexion (S1) 5 Normal Left Dorsiflexion (L4) 5 Normal Plantarflexion (S1) 5 Normal Comments PF tested seated PT-OP-Q Treatments Start: 11/29/20 17:37 Freq: Status: Active Protocol: Document 12/11/20 13:45 [facility] (Rec: 12/11/20 14:31 [facility] [id number]) Gym Equipment Shuttle Balance red clips Comments fwd & side: WBOS & NBOS Therapeutic Exercises Supine Exercises Piriformis Stretch Side bilateral Reps/Minutes 30 sec ea core Supine Exercise Name B isometric flex Side bilateral Reps/Minutes 30 sec x2 Comments DF & knees past hips Prone Exercises ext Prone Exercise Name alt hip Side bilateral Reps/Minutes 10 Sidelying Exercises clamshell Side bilateral Reps/Minutes 10 hip abd Side bilateral Reps/Minutes 10 Standing Exercises Tennis ball Standing Exercise Name self-STM to glutes Gait Training Gait Activity gait Comments 1. staggerred stance weight shifts Manual Therapy Treatment Soft Tissue Mobilization glutes Body Location L Mobilization Type Sustained Pressure Intensity/Depth Moderate Body Position Prone Comments w/hip ER AROM gentle PT-OP-T Assessment and Plan Start: 11/29/20 17:37 Freq: Status: Active Protocol: Document 12/11/20 13:45 [facility] (Rec: 12/11/20 14:31 [facility] [id number]) Physical Therapy Assessment Goals activities Filterer Goal (LTG) Pt will be able to garden as she wishes without inc pain. LTG Duration 02/04/21 posture Long-Term Goal (LTG) Pt will have improved posture by improvement of VCT to at least 4/5 without cuieng. LTG Duration 02/04/21 strength Short Term Goal (STG) Pt will be indep w/HEP. STG Duration 01/04/21 Long-Term Goal (LTG) Pt will have improved strength of hips to at least 4/5 in all planes and at least 3/5 in all planes for LPM to show imrpoved stability to improve pt's mechanics and ability to particiapte in typical activities without pain. LTG Duration 02/04/21 balance Long-Term Goal (LTG) Pt will improve SLS to 10 sec B without significant lat shearing. LTG Duration 02/04/21 standing Short Term Goal (STG) Pt will be able to stand to prep animal meals without increased pain. STG Duration 01/04/21 Filterer Goal (LTG) Pt will be able to stand as needed for all kitchen activties and when out in town without inc pain. LTG Duration 02/04/21 Assessment Summary Assessment Reviewed all of pt's HEP exercises today. Pt only has pain during core exercise with LEs at >90/90 when her LLE begins to press away from her body. Reminded pt to keep pulling knees in toward her chest so she feels it only in her core. Gave pt self-STM to glutes with tennis ball as additional HEP work. Pt states she has been working on walking with proper form but continues to show decreased stance time on LLE and increased lateral shearing. Pt would benefit from continued therapy for decreasing L sided pain, improving gait mechanics, and increasing bilateral hip and glute strength. Physical Therapy Plan Frequency and Duration Frequency of Treatment 2x/Week Duration of Treatment 2 months Plan of Care Start Date 12/05/20 Plan of Care End Date 02/04/21 Therapeutic Interventions Therapeutic Interventions Aquatic Therapy,Balance Training,Gait Training,Home Exercise Program,Joint Mobilizations,Manual Therapy, Neuromuscular Re-education, Patient/Caregiver Education, Self-Care/Home Management,Soft Tissue Mobilization,Taping, Therapeutic Activities, Therapeutic Exercises Modalities Cold Pack/Ice Massage,Electric Stimulation,Hot Packs, Ultrasound Next Visit Focus/Plan Next Note Type Treatment Note Next Visit Plan review HEP, cont to work on STM & joint mobs as needed, PNF, sleep position edu
--- NOTE | 2020-12-15 12:01 | PT.OTN ---
Current Diagnoses Other chronic pain (12/15/20) Pain in left hip (12/15/20) Low back pain (12/15/20) Dorsalgia, unspecified (12/15/20) Pain in left leg (12/15/20) Other abnormalities of gait and mobility (12/15/20) Abnormal posture (12/15/20) Weakness (12/15/20) Physical Therapy Treatment Note PT-OP-A Visit Information Start: 11/29/20 17:37 Freq: Status: Active Protocol: Document 12/15/20 11:22 MA (Rec: 12/15/20 11:58 MA [id number]) Out-Patient Physical Therapy Visit Information Visit Information Visit Type Treatment Note Visit Note 11/18 Visit Start Time 11:15 Visit Stop Time 12:00 Total Visit Minutes 45 Visit Number 4 Number of LEAD ENGINEER Visits 2 PT-OP-B Current Condition Start: 11/29/20 17:37 Freq: Status: Active Protocol: Document 12/05/20 11:25 [facility] (Rec: 12/05/20 12:10 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 She has babied back since surgeries and notes flex is worse than ext typically. Pt reports she has tingling and pain in L buttocks and standing is the worst where it will grab and tingle in buttocks L and can relieve by sititng down. Pt notes she is always hiked up on L side. Pt exercises with a outdoor fitness trainer on zoom w/ focus on stretches. Pt reports pain has increased over the past 6 weeks. 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 Prior Treatments and Tests Therapeutic massage-painful during, does not help, pulsed magnawave-did not help Treatment Goals Patient/Caregiver Goals Be able stand longer without pain Personal Factors Other Personal Factors That May Effect B TKAs, hysterectomy, L4-5 Therapy/Recovery fusion then repair, L TONY post approach PT-OP-C Subjective Start: 11/29/20 17:37 Freq: Status: Active Protocol: Document 12/15/20 11:22 MA (Rec: 12/15/20 11:58 MA [id number]) OP-PT Subjective Patient Comments Patient Comments Pt has had no pain with exercises and feels the core exercise is starting to get easier. PT-OP-D Balance Start: 11/29/20 17:37 Freq: Status: Active Protocol: Document 12/05/20 11:25 LR (Rec: 12/05/20 12:10 [facility] [id number]) Balance Tests Single Limb Standing Single Limb- Right 5 Single Limb- Left 4 PT-OP-F Manual Assessment Start: 11/29/20 17:37 Freq: Status: Active Protocol: Document 12/05/20 11:25 [facility] (Rec: 12/05/20 12:10 [facility] [id number]) Manual Assessments Soft Tissue Assessment Soft Tissue Mobility Assessment tightness in L glute/QL Joint Mobility Assessment Joint Mobility Assessment L iliac crest higher, equal greater trochanters PT-OP-G Mobility & Gait Start: 11/29/20 17:37 Freq: Status: Active Protocol: Document 12/05/20 11:25 [facility] (Rec: 12/05/20 12:10 [facility] [id number]) OP Gait Assessment Comments Gait Comments tightness L glutes & QL PT-OP-J Posture/Palpation/Skin Start: 11/29/20 17:37 Freq: Status: Active Protocol: Document 12/05/20 11:25 [facility] (Rec: 12/05/20 12:10 [facility] [id number]) Posture Evaluation [facility] Postural Classification System Radha Postural Classifications Posterior/Anterior Vertebral Compression Test 1 Lumbar Protective Mechanism Left AP 1 Lumbar Protective Mechanism Right AP 0 Lumbar Protective Mechanism Left PA 1 Lumbar Protective Mechanism Right PA 0 Comments Posture Comments L pelvic shear, L>R ER of foot , R rotation, hands behind creates more comfort, kyphosis fwd head PT-OP-K Range of Motion Start: 11/29/20 17:37 Freq: Status: Active Protocol: Document 12/05/20 11:25 LR (Rec: 12/05/20 12:10 [facility] [id number]) Lumbar Spine Range of Motion Lumbar Spine Active Degrees Flexion 54 Extension 13 Rotation Left 64 Rotation Right 58 Lateral Flexion Left 6 Lateral Flexion Right 16 Comments pain in hip coming up from flex & pain w/L SB PT-OP-L Special Tests Start: 11/29/20 17:37 Freq: Status: Active Protocol: Document 12/05/20 11:25 LR (Rec: 12/05/20 12:10 [facility] [id number]) Special Tests Lumbar Spine Special Tests Víctor Test Results WNL Straight Leg Raise Test Results L 68, R 64 Slump Test Results neg B PT-OP-M Strength Start: 11/29/20 17:37 Freq: Status: Active Protocol: Document 12/05/20 11:25 LR (Rec: 12/05/20 12:10 [facility] [id number]) Hip Strength Hip Manual Muscle Testing Right Flexion (L2) 3 Fair Extension (S1) 3+ Fair+ Abduction 3+ Fair+ External Rotation 3+ Fair+ Internal Rotation 5 Normal Left Flexion (L2) 3 Fair Extension (S1) 3+ Fair+ Abduction 3 Fair External Rotation 2+ Poor+ Internal Rotation 5 Normal Knee Strength Knee Manual Muscle Testing Right Flexion (S2) 5 Normal Extension (L3) 5 Normal Left Flexion (S2) 5 Normal Extension (L3) 5 Normal Ankle/Foot Strength Ankle and Foot Manual Muscle Testing Right Dorsiflexion (L4) 5 Normal Plantarflexion (S1) 5 Normal Left Dorsiflexion (L4) 5 Normal Plantarflexion (S1) 5 Normal Comments PF tested seated PT-OP-Q Treatments Start: 11/29/20 17:37 Freq: Status: Active Protocol: Document 12/15/20 11:22 MA (Rec: 12/15/20 11:58 MA [id number]) Therapeutic Exercises Supine Exercises Piriformis Stretch Side bilateral Reps/Minutes 30 sec ea core Supine Exercise Name B isometric flex Side bilateral Reps/Minutes 30 sec x2 Comments DF & knees past hips Prone Exercises ext Prone Exercise Name alt hip Side bilateral Reps/Minutes 10 Sidelying Exercises clamshell Side bilateral Reps/Minutes 10 hip abd Side bilateral Reps/Minutes 10 Sitting Exercises Glute Stretch Side bilateral Reps/Minutes 30 sec ea Manual Therapy Treatment Soft Tissue Mobilization QL Body Location L Mobilization Type Sustained Pressure,Trigger Point Release Intensity/Depth Moderate Body Position Prone glutes Body Location L Mobilization Type Sustained Pressure Intensity/Depth Moderate Body Position Prone Comments w/hip ER AROM gentle Self-Care/Home Management Treatment Education Patient Education Pain Management Other Education educated pt on using pillow between LEs when sleeping to help with back and hip pain when she wakes. PT-OP-T Assessment and Plan Start: 11/29/20 17:37 Freq: Status: Active Protocol: Document 12/15/20 11:22 MA (Rec: 12/15/20 11:58 MA [id number]) Physical Therapy Assessment Goals activities Shelter Goal (LTG) Pt will be able to garden as she wishes without inc pain. LTG Duration 02/04/21 posture Cart Pusher Goal (LTG) Pt will have improved posture by improvement of VCT to at least 4/5 without cuieng. LTG Duration 02/04/21 strength Short Term Goal (STG) Pt will be indep w/HEP. STG Duration 01/04/21 Cart Pusher Goal (LTG) Pt will have improved strength of hips to at least 4/5 in all planes and at least 3/5 in all planes for LPM to show imrpoved stability to improve pt's mechanics and ability to particiapte in typical activities without pain. LTG Duration 02/04/21 balance Shelter Goal (LTG) Pt will improve SLS to 10 sec B without significant lat shearing. LTG Duration 02/04/21 standing Short Term Goal (STG) Pt will be able to stand to prep animal meals without increased pain. STG Duration 01/04/21 Shelter Goal (LTG) Pt will be able to stand as needed for all kitchen activties and when out in town without inc pain. LTG Duration 02/04/21 Assessment Summary Assessment Pt did a better job today with her HEP core exercise keeping the LEs even. She needs cues during SL work to keep hips stacked and not roll posteriorly. Worked on glutes and QL for pain with pt feeling a good release after STM. Physical Therapy Plan Frequency and Duration Frequency of Treatment 2x/Week Duration of Treatment 2 months Plan of Care Start Date 12/05/20 Plan of Care End Date 02/04/21 Therapeutic Interventions Therapeutic Interventions Aquatic Therapy,Balance Training,Gait Training,Home Exercise Program,Joint Mobilizations,Manual Therapy, Neuromuscular Re-education, Patient/Caregiver Education, Self-Care/Home Management,Soft Tissue Mobilization,Taping, Therapeutic Activities, Therapeutic Exercises Modalities Cold Pack/Ice Massage,Electric Stimulation,Hot Packs, Ultrasound Next Visit Focus/Plan Next Note Type Treatment Note Next Visit Plan review HEP, cont to work on STM & joint mobs as needed, PNF, balance work
--- NOTE | 2020-12-18 17:52 | PT.OTN ---
Current Diagnoses Other chronic pain (12/18/20) Pain in left hip (12/18/20) Low back pain (12/18/20) Dorsalgia, unspecified (12/18/20) Pain in left leg (12/18/20) Other abnormalities of gait and mobility (12/18/20) Abnormal posture (12/18/20) Weakness (12/18/20) Physical Therapy Treatment Note PT-OP-A Visit Information Start: 11/29/20 17:37 Freq: Status: Active Protocol: Document 12/18/20 16:06 MA (Rec: 12/18/20 16:45 MA [id number]) Out-Patient Physical Therapy Visit Information Visit Information Visit Type Treatment Note Visit Note 12/18 Visit Start Time 16:00 Visit Stop Time 16:40 Total Visit Minutes 40 Visit Number 5 Number of CLOTHING SORTER Visits 3 PT-OP-B Current Condition Start: 11/29/20 17:37 Freq: Status: Active Protocol: Document 12/05/20 11:25 [facility] (Rec: 12/05/20 12:10 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 She has babied back since surgeries and notes flex is worse than ext typically. Pt reports she has tingling and pain in L buttocks and standing is the worst where it will grab and tingle in buttocks L and can relieve by sititng down. Pt notes she is always hiked up on L side. Pt exercises with a dolphin trainer on zoom w/ focus on stretches. Pt reports pain has increased over the past 6 weeks. 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 Prior Treatments and Tests Therapeutic massage-painful during, does not help, pulsed magnawave-did not help Treatment Goals Patient/Caregiver Goals Be able stand longer without pain Personal Factors Other Personal Factors That May Effect B TKAs, hysterectomy, L4-5 Therapy/Recovery fusion then repair, L TONY post approach PT-OP-C Subjective Start: 11/29/20 17:37 Freq: Status: Active Protocol: Document 12/18/20 16:06 MA (Rec: 12/18/20 16:45 MA [id number]) OP-PT Subjective Patient Comments Patient Comments Pt has pain off and on. Pain only happens when standing PT-OP-D Balance Start: 11/29/20 17:37 Freq: Status: Active Protocol: Document 12/05/20 11:25 [facility] (Rec: 12/05/20 12:10 [facility] [id number]) Balance Tests Single Limb Standing Single Limb- Right 5 Single Limb- Left 4 PT-OP-F Manual Assessment Start: 11/29/20 17:37 Freq: Status: Active Protocol: Document 12/05/20 11:25 [facility] (Rec: 12/05/20 12:10 [facility] [id number]) Manual Assessments Soft Tissue Assessment Soft Tissue Mobility Assessment tightness in L glute/QL Joint Mobility Assessment Joint Mobility Assessment L iliac crest higher, equal greater trochanters PT-OP-G Mobility & Gait Start: 11/29/20 17:37 Freq: Status: Active Protocol: Document 12/05/20 11:25 [facility] (Rec: 12/05/20 12:10 [facility] [id number]) OP Gait Assessment Comments Gait Comments tightness L glutes & QL PT-OP-J Posture/Palpation/Skin Start: 11/29/20 17:37 Freq: Status: Active Protocol: Document 12/05/20 11:25 [facility] (Rec: 12/05/20 12:10 [facility] [id number]) Posture Evaluation [facility] Postural Classification System Radha Postural Classifications Posterior/Anterior Vertebral Compression Test 1 Lumbar Protective Mechanism Left AP 1 Lumbar Protective Mechanism Right AP 0 Lumbar Protective Mechanism Left PA 1 Lumbar Protective Mechanism Right PA 0 Comments Posture Comments L pelvic shear, L>R ER of foot , R rotation, hands behind creates more comfort, kyphosis fwd head PT-OP-K Range of Motion Start: 11/29/20 17:37 Freq: Status: Active Protocol: Document 12/05/20 11:25 LR (Rec: 12/05/20 12:10 [facility] [id number]) Lumbar Spine Range of Motion Lumbar Spine Active Degrees Flexion 54 Extension 13 Rotation Left 64 Rotation Right 58 Lateral Flexion Left 6 Lateral Flexion Right 16 Comments pain in hip coming up from flex & pain w/L SB PT-OP-L Special Tests Start: 11/29/20 17:37 Freq: Status: Active Protocol: Document 12/05/20 11:25 LR (Rec: 12/05/20 12:10 [facility] [id number]) Special Tests Lumbar Spine Special Tests Víctor Test Results WNL Straight Leg Raise Test Results L 68, R 64 Slump Test Results neg B PT-OP-M Strength Start: 11/29/20 17:37 Freq: Status: Active Protocol: Document 12/05/20 11:25 [facility] (Rec: 12/05/20 12:10 [facility] [id number]) Hip Strength Hip Manual Muscle Testing Right Flexion (L2) 3 Fair Extension (S1) 3+ Fair+ Abduction 3+ Fair+ External Rotation 3+ Fair+ Internal Rotation 5 Normal Left Flexion (L2) 3 Fair Extension (S1) 3+ Fair+ Abduction 3 Fair External Rotation 2+ Poor+ Internal Rotation 5 Normal Knee Strength Knee Manual Muscle Testing Right Flexion (S2) 5 Normal Extension (L3) 5 Normal Left Flexion (S2) 5 Normal Extension (L3) 5 Normal Ankle/Foot Strength Ankle and Foot Manual Muscle Testing Right Dorsiflexion (L4) 5 Normal Plantarflexion (S1) 5 Normal Left Dorsiflexion (L4) 5 Normal Plantarflexion (S1) 5 Normal Comments PF tested seated PT-OP-Q Treatments Start: 11/29/20 17:37 Freq: Status: Active Protocol: Document 12/18/20 16:06 MA (Rec: 12/18/20 16:45 MA [id number]) Therapeutic Exercises Supine Exercises Víctor Stretch Side bilateral Reps/Minutes 60 sec ea Piriformis Stretch Side bilateral Reps/Minutes 30 sec ea core Supine Exercise Name B isometric flex Side bilateral Reps/Minutes 30 sec x2 Comments DF & knees past hips Prone Exercises ext Prone Exercise Name alt hip Side bilateral Reps/Minutes 10x2 Sidelying Exercises clamshell Side bilateral Reps/Minutes 10x2 hip abd Side bilateral Reps/Minutes 10x2 Manual Therapy Treatment Soft Tissue Mobilization QL Body Location L Mobilization Type Sustained Pressure,Trigger Point Release Intensity/Depth Moderate Body Position Prone glutes Body Location L Mobilization Type Sustained Pressure Intensity/Depth Moderate Body Position Prone Comments w/hip ER AROM gentle Manual Traction LB Comments long axis traction with LLE IR Neuro Re-Education Treatment Balance Activities SLS Comments 30 sec ea to check alignment L pronation PT-OP-T Assessment and Plan Start: 11/29/20 17:37 Freq: Status: Active Protocol: Document 12/18/20 16:06 MA (Rec: 12/18/20 16:45 MA [id number]) Physical Therapy Assessment Goals activities Forensic Ballistics Expert Goal (LTG) Pt will be able to garden as she wishes without inc pain. LTG Duration 02/04/21 posture Forensic Ballistics Expert Goal (LTG) Pt will have improved posture by improvement of VCT to at least 4/5 without cuieng. LTG Duration 02/04/21 strength Short Term Goal (STG) Pt will be indep w/HEP. STG Duration 01/04/21 Correction Goal (LTG) Pt will have improved strength of hips to at least 4/5 in all planes and at least 3/5 in all planes for LPM to show imrpoved stability to improve pt's mechanics and ability to particiapte in typical activities without pain. LTG Duration 02/04/21 balance Correction Goal (LTG) Pt will improve SLS to 10 sec B without significant lat shearing. LTG Duration 02/04/21 standing Short Term Goal (STG) Pt will be able to stand to prep animal meals without increased pain. STG Duration 01/04/21 Correction Goal (LTG) Pt will be able to stand as needed for all kitchen activties and when out in town without inc pain. LTG Duration 02/04/21 Assessment Summary Assessment Pt needs only minor cues to keep hips stacked during HEP exercise review. Added víctor stretch to HEP exercises for anterior hip tightness. Ended session SLS with pt going into pronation on LLE which may be contributing to L side SI and LB pain when standing. Will follow up on LE positioning next session. Physical Therapy Plan Frequency and Duration Frequency of Treatment 2x/Week Duration of Treatment 2 months Plan of Care Start Date 12/05/20 Plan of Care End Date 02/04/21 Therapeutic Interventions Therapeutic Interventions Aquatic Therapy,Balance Training,Gait Training,Home Exercise Program,Joint Mobilizations,Manual Therapy, Neuromuscular Re-education, Patient/Caregiver Education, Self-Care/Home Management,Soft Tissue Mobilization,Taping, Therapeutic Activities, Therapeutic Exercises Modalities Cold Pack/Ice Massage,Electric Stimulation,Hot Packs, Ultrasound Next Visit Focus/Plan Next Note Type Treatment Note Next Visit Plan Focus on LE positioning when standing and during gait, watching for pronation and IR of LLE review HEP, cont to work on STM & joint mobs as needed, PNF, balance work
--- NOTE | 2020-12-28 10:14 | PT.OTN ---
Current Diagnoses Other chronic pain (12/28/20) Pain in left hip (12/28/20) Low back pain (12/28/20) Dorsalgia, unspecified (12/28/20) Pain in left leg (12/28/20) Other abnormalities of gait and mobility (12/28/20) Abnormal posture (12/28/20) Weakness (12/28/20) Physical Therapy Treatment Note PT-OP-A Visit Information Start: 11/29/20 17:37 Freq: Status: Active Protocol: Document 12/28/20 09:15 [facility] (Rec: 12/28/20 10:02 [facility] [id number]) Out-Patient Physical Therapy Visit Information Visit Information Visit Type Treatment Note Visit Note 01/18 Visit Start Time 08:18 Visit Stop Time 09:00 Total Visit Minutes 42 Visit Number 6 Number of BRAZER RESISTANCE Visits 0 PT-OP-B Current Condition Start: 11/29/20 17:37 Freq: Status: Active Protocol: Document 12/05/20 11:25 [facility] (Rec: 12/05/20 12:10 [facility] [id number]) Current Condition History of Current Condition Onset Date 6 weeks ago Current Complaints L glute/SI pain History of Current Condition Pt has had chornic back pain with hx of L4-5 fusion in 2004 then repair again in 2009 w/ L3-4 then 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 She has babied back since surgeries and notes flex is worse than ext typically. Pt reports she has tingling and pain in L buttocks and standing is the worst where it will grab and tingle in buttocks L and can relieve by sititng down. Pt notes she is always hiked up on L side. Pt exercises with a adjunct trainer on zoom w/ focus on stretches. Pt reports pain has increased over the past 6 weeks. 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 Prior Treatments and Tests Therapeutic massage-painful during, does not help, pulsed magnawave-did not help Treatment Goals Patient/Caregiver Goals Be able stand longer without pain Personal Factors Other Personal Factors That May Effect B TKAs, hysterectomy, L4-5 Therapy/Recovery fusion then repair, L TONY post approach PT-OP-C Subjective Start: 11/29/20 17:37 Freq: Status: Active Protocol: Document 12/28/20 09:15 [facility] (Rec: 12/28/20 10:02 [facility] [id number]) OP-PT Subjective Patient Comments Patient Comments Pt reports still pain in standing and when she first wakes up sometimes. PT-OP-D Balance Start: 11/29/20 17:37 Freq: Status: Active Protocol: Document 12/05/20 11:25 [facility] (Rec: 12/05/20 12:10 [facility] [id number]) Balance Tests Single Limb Standing Single Limb- Right 5 Single Limb- Left 4 PT-OP-F Manual Assessment Start: 11/29/20 17:37 Freq: Status: Active Protocol: Document 12/05/20 11:25 [facility] (Rec: 12/05/20 12:10 [facility] [id number]) Manual Assessments Soft Tissue Assessment Soft Tissue Mobility Assessment tightness in L glute/QL Joint Mobility Assessment Joint Mobility Assessment L iliac crest higher, equal greater trochanters PT-OP-G Mobility & Gait Start: 11/29/20 17:37 Freq: Status: Active Protocol: Document 12/05/20 11:25 [facility] (Rec: 12/05/20 12:10 [facility] [id number]) OP Gait Assessment Comments Gait Comments tightness L glutes & QL PT-OP-J Posture/Palpation/Skin Start: 11/29/20 17:37 Freq: Status: Active Protocol: Document 12/05/20 11:25 [facility] (Rec: 12/05/20 12:10 [facility] [id number]) Posture Evaluation Radha Postural Classification System Radha Postural Classifications Posterior/Anterior Vertebral Compression Test 1 Lumbar Protective Mechanism Left AP 1 Lumbar Protective Mechanism Right AP 0 Lumbar Protective Mechanism Left PA 1 Lumbar Protective Mechanism Right PA 0 Comments Posture Comments L pelvic shear, L>R ER of foot , R rotation, hands behind creates more comfort, kyphosis fwd head PT-OP-K Range of Motion Start: 11/29/20 17:37 Freq: Status: Active Protocol: Document 12/05/20 11:25 [facility] (Rec: 12/05/20 12:10 [facility] [id number]) Lumbar Spine Range of Motion Lumbar Spine Active Degrees Flexion 54 Extension 13 Rotation Left 64 Rotation Right 58 Lateral Flexion Left 6 Lateral Flexion Right 16 Comments pain in hip coming up from flex & pain w/L SB PT-OP-L Special Tests Start: 11/29/20 17:37 Freq: Status: Active Protocol: Document 12/05/20 11:25 [facility] (Rec: 12/05/20 12:10 [facility] [id number]) Special Tests Lumbar Spine Special Tests Víctor Test Results WNL Straight Leg Raise Test Results L 68, R 64 Slump Test Results neg B PT-OP-M Strength Start: 11/29/20 17:37 Freq: Status: Active Protocol: Document 12/05/20 11:25 [facility] (Rec: 12/05/20 12:10 [facility] [id number]) Hip Strength Hip Manual Muscle Testing Right Flexion (L2) 3 Fair Extension (S1) 3+ Fair+ Abduction 3+ Fair+ External Rotation 3+ Fair+ Internal Rotation 5 Normal Left Flexion (L2) 3 Fair Extension (S1) 3+ Fair+ Abduction 3 Fair External Rotation 2+ Poor+ Internal Rotation 5 Normal Knee Strength Knee Manual Muscle Testing Right Flexion (S2) 5 Normal Extension (L3) 5 Normal Left Flexion (S2) 5 Normal Extension (L3) 5 Normal Ankle/Foot Strength Ankle and Foot Manual Muscle Testing Right Dorsiflexion (L4) 5 Normal Plantarflexion (S1) 5 Normal Left Dorsiflexion (L4) 5 Normal Plantarflexion (S1) 5 Normal Comments PF tested seated PT-OP-Q Treatments Start: 11/29/20 17:37 Freq: Status: Active Protocol: Document 12/28/20 09:15 [facility] (Rec: 12/28/20 10:02 [facility] [id number]) Therapeutic Exercises Supine Exercises Víctor Stretch Side bilateral Reps/Minutes 60 sec ea Sitting Exercises Glute Stretch Sitting Exercise Name gentle Side bilateral Reps/Minutes 30 sec ea Therapeutic Activity Therapeutic Activity sleep Name s/l sleep position Comments MARY training, long pillow btwn legs, towel under side, pillows only under head/neck, pillow in front to support top arm ADLs Comments 1. work on hip hinge-started seated then standing w/yard stick 2. working on hip hinge over sink for dishes 3. work on pivot and turn to rinse dish then put in the horseradish maker posture Comments work on dec pelvic shear & SB in mirror & working on thoracic block over pelvis PT-OP-T Assessment and Plan Start: 11/29/20 17:37 Freq: Status: Active Protocol: Document 12/28/20 09:15 [facility] (Rec: 12/28/20 10:02 [facility] [id number]) Physical Therapy Assessment Goals activities Cash Register Servicer Goal (LTG) Pt will be able to garden as she wishes without inc pain. LTG Duration 02/04/21 posture Cash Register Servicer Goal (LTG) Pt will have improved posture by improvement of VCT to at least 4/5 without cuieng. LTG Duration 02/04/21 strength Short Term Goal (STG) Pt will be indep w/HEP. STG Duration 01/04/21 Cash Register Servicer Goal (LTG) Pt will have improved strength of hips to at least 4/5 in all planes and at least 3/5 in all planes for LPM to show imrpoved stability to improve pt's mechanics and ability to particiapte in typical activities without pain. LTG Duration 02/04/21 balance Cash Register Servicer Goal (LTG) Pt will improve SLS to 10 sec B without significant lat shearing. LTG Duration 02/04/21 standing Short Term Goal (STG) Pt will be able to stand to prep animal meals without increased pain. STG Duration 01/04/21 Cash Register Servicer Goal (LTG) Pt will be able to stand as needed for all kitchen activties and when out in town without inc pain. LTG Duration 02/04/21 Assessment Summary Assessment Pt noted more stability in sleeping position when propped and was able to od hip hinge properly after working on seated hip hinge first but has more difficulty with standing . She understood improtance of posture & keeping back more neutral during ADLs. Physical Therapy Plan Frequency and Duration Frequency of Treatment 2x/Week Duration of Treatment 2 months Plan of Care Start Date 12/05/20 Plan of Care End Date 02/04/21 Next Visit Focus/Plan Next Note Type Treatment Note Next Visit Plan work on standing posture & functional activities in standing with focus on spinal position, review hip hinge and start working on squat
--- NOTE | 2021-01-01 16:11 | PT.OTN ---
Current Diagnoses Other chronic pain (01/01/21) Pain in left hip (01/01/21) Low back pain (01/01/21) Dorsalgia, unspecified (01/01/21) Pain in left leg (01/01/21) Other abnormalities of gait and mobility (01/01/21) Abnormal posture (01/01/21) Weakness (01/01/21) Physical Therapy Treatment Note PT-OP-A Visit Information Start: 11/29/20 17:37 Freq: Status: Active Protocol: Document 01/01/21 15:24 [facility] (Rec: 01/01/21 16:10 [facility] [id number]) Out-Patient Physical Therapy Visit Information Visit Information Visit Type Treatment Note Visit Note 02/17 Visit Start Time 15:15 Visit Stop Time 16:00 Total Visit Minutes 45 Visit Number 7 Number of SERVICE DISMANTLER Visits 1 PT-OP-B Current Condition Start: 11/29/20 17:37 Freq: Status: Active Protocol: Document 12/05/20 11:25 [facility] (Rec: 12/05/20 12:10 [facility] [id number]) Current Condition History of Current Condition Onset Date 6 weeks ago Current Complaints L glute/SI pain History of Current Condition Pt has had chornic back pain with hx of L4-5 fusion in 2004 then repair again in 2009 w/ L3-4 then 2013 L TOYN d/t avascular necrosis. She has babied back since surgeries and notes flex is worse than ext typically. Pt reports she has tingling and pain in L buttocks and standing is the worst where it will grab and tingle in buttocks L and can relieve by sititng down. Pt notes she is always hiked up on L side. Pt exercises with a program trainer on zoom w/ focus on stretches. Pt reports pain has increased over the past 6 weeks. 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 Prior Treatments and Tests Therapeutic massage-painful during, does not help, pulsed magnawave-did not help Treatment Goals Patient/Caregiver Goals Be able stand longer without pain Personal Factors Other Personal Factors That May Effect B TKAs, hysterectomy, L4-5 Therapy/Recovery fusion then repair, L TONY post approach PT-OP-C Subjective Start: 11/29/20 17:37 Freq: Status: Active Protocol: Document 01/01/21 15:24 [facility] (Rec: 01/01/21 16:10 [facility] [id number]) OP-PT Subjective Patient Comments Patient Comments Pt's pain is now in mid back vs low back. She feels the training for doing dishes last time was very helpful. PT-OP-D Balance Start: 11/29/20 17:37 Freq: Status: Active Protocol: Document 12/05/20 11:25 [facility] (Rec: 12/05/20 12:10 [facility] [id number]) Balance Tests Single Limb Standing Single Limb- Right 5 Single Limb- Left 4 PT-OP-F Manual Assessment Start: 11/29/20 17:37 Freq: Status: Active Protocol: Document 12/05/20 11:25 [facility] (Rec: 12/05/20 12:10 [facility] [id number]) Manual Assessments Soft Tissue Assessment Soft Tissue Mobility Assessment tightness in L glute/QL Joint Mobility Assessment Joint Mobility Assessment L iliac crest higher, equal greater trochanters PT-OP-G Mobility & Gait Start: 11/29/20 17:37 Freq: Status: Active Protocol: Document 12/05/20 11:25 [facility] (Rec: 12/05/20 12:10 [facility] [id number]) OP Gait Assessment Comments Gait Comments tightness L glutes & QL PT-OP-J Posture/Palpation/Skin Start: 11/29/20 17:37 Freq: Status: Active Protocol: Document 12/05/20 11:25 [facility] (Rec: 12/05/20 12:10 [facility] [id number]) Posture Evaluation [facility] Postural Classification System [facility] Postural Classifications Posterior/Anterior Vertebral Compression Test 1 Lumbar Protective Mechanism Left AP 1 Lumbar Protective Mechanism Right AP 0 Lumbar Protective Mechanism Left PA 1 Lumbar Protective Mechanism Right PA 0 Comments Posture Comments L pelvic shear, L>R ER of foot , R rotation, hands behind creates more comfort, kyphosis fwd head PT-OP-K Range of Motion Start: 11/29/20 17:37 Freq: Status: Active Protocol: Document 12/05/20 11:25 [facility] (Rec: 12/05/20 12:10 [facility] [id number]) Lumbar Spine Range of Motion Lumbar Spine Active Degrees Flexion 54 Extension 13 Rotation Left 64 Rotation Right 58 Lateral Flexion Left 6 Lateral Flexion Right 16 Comments pain in hip coming up from flex & pain w/L SB PT-OP-L Special Tests Start: 11/29/20 17:37 Freq: Status: Active Protocol: Document 12/05/20 11:25 [facility] (Rec: 12/05/20 12:10 [facility] [id number]) Special Tests Lumbar Spine Special Tests Víctor Test Results WNL Straight Leg Raise Test Results L 68, R 64 Slump Test Results neg B PT-OP-M Strength Start: 11/29/20 17:37 Freq: Status: Active Protocol: Document 12/05/20 11:25 [facility] (Rec: 12/05/20 12:10 [facility] [id number]) Hip Strength Hip Manual Muscle Testing Right Flexion (L2) 3 Fair Extension (S1) 3+ Fair+ Abduction 3+ Fair+ External Rotation 3+ Fair+ Internal Rotation 5 Normal Left Flexion (L2) 3 Fair Extension (S1) 3+ Fair+ Abduction 3 Fair External Rotation 2+ Poor+ Internal Rotation 5 Normal Knee Strength Knee Manual Muscle Testing Right Flexion (S2) 5 Normal Extension (L3) 5 Normal Left Flexion (S2) 5 Normal Extension (L3) 5 Normal Ankle/Foot Strength Ankle and Foot Manual Muscle Testing Right Dorsiflexion (L4) 5 Normal Plantarflexion (S1) 5 Normal Left Dorsiflexion (L4) 5 Normal Plantarflexion (S1) 5 Normal Comments PF tested seated PT-OP-Q Treatments Start: 11/29/20 17:37 Freq: Status: Active Protocol: Document 01/01/21 15:24 [facility] (Rec: 01/01/21 16:10 [facility] [id number]) Therapeutic Exercises Supine Exercises LTR Supine Exercise Name Lower trunk rotation Side bilateral Reps/Minutes 6x10 sec hold Víctor Stretch Side bilateral Reps/Minutes 60 sec ea Piriformis Stretch Side bilateral Reps/Minutes 30 sec ea Prone Exercises ext Prone Exercise Name alt hip Side bilateral Reps/Minutes 10x2 Sitting Exercises Glute Stretch Sitting Exercise Name gentle Side bilateral Reps/Minutes 30 sec ea Therapeutic Activity Therapeutic Activity ADLs Comments 1. hip-hinge sitting then standing with yard stick Neuro Re-Education Treatment Balance Activities SLS Comments 20-30 sec working on not shearing pelvis during SLS infront of mirror. PT-OP-T Assessment and Plan Start: 11/29/20 17:37 Freq: Status: Active Protocol: Document 01/01/21 15:24 [facility] (Rec: 01/01/21 16:10 [facility] [id number]) Physical Therapy Assessment Goals activities Group Home Goal (LTG) Pt will be able to garden as she wishes without inc pain. LTG Duration 02/04/21 posture Lean Coach Goal (LTG) Pt will have improved posture by improvement of VCT to at least 4/5 without cuieng. LTG Duration 02/04/21 strength Short Term Goal (STG) Pt will be indep w/HEP. STG Duration 01/04/21 Lean Coach Goal (LTG) Pt will have improved strength of hips to at least 4/5 in all planes and at least 3/5 in all planes for LPM to show imrpoved stability to improve pt's mechanics and ability to particiapte in typical activities without pain. LTG Duration 02/04/21 balance Lean Coach Goal (LTG) Pt will improve SLS to 10 sec B without significant lat shearing. LTG Duration 02/04/21 standing Short Term Goal (STG) Pt will be able to stand to prep animal meals without increased pain. STG Duration 01/04/21 Lean Coach Goal (LTG) Pt will be able to stand as needed for all kitchen activties and when out in town without inc pain. LTG Duration 02/04/21 Assessment Summary Assessment Mary arrives with mid thoracic pain/discomfort. After active stretch LTR, pt's pain improved. Pt needs heavy cues for thoracic & CS extension, even when holding yard stick, during hip hinge activity today. After going back to seated hip hinge and then repeating standing, pt had better results. Performed standing SL infront of mirror holding counter top for support and working on keeping hips neutral, avoiding pelvic shear. Will begin squat training for functional activities next session. Physical Therapy Plan Frequency and Duration Frequency of Treatment 2x/Week Duration of Treatment 2 months Plan of Care Start Date 12/05/20 Plan of Care End Date 02/04/21 Therapeutic Interventions Therapeutic Interventions Aquatic Therapy,Balance Training,Gait Training,Home Exercise Program,Joint Mobilizations,Manual Therapy, Neuromuscular Re-education, Patient/Caregiver Education, Self-Care/Home Management,Soft Tissue Mobilization,Taping, Therapeutic Activities, Therapeutic Exercises Modalities Cold Pack/Ice Massage,Electric Stimulation,Hot Packs, Ultrasound Next Visit Focus/Plan Next Note Type Treatment Note Next Visit Plan work on standing posture & functional activities in standing with focus on spinal position, review hip hinge and start working on squat
--- NOTE | 2021-01-12 12:12 | PT.OTN ---
Current Diagnoses Other chronic pain (01/12/21) Pain in left hip (01/12/21) Low back pain (01/12/21) Dorsalgia, unspecified (01/12/21) Pain in left leg (01/12/21) Other abnormalities of gait and mobility (01/12/21) Abnormal posture (01/12/21) Weakness (01/12/21) Physical Therapy Treatment Note PT-OP-A Visit Information Start: 11/29/20 17:37 Freq: Status: Active Protocol: Document 01/12/21 11:20 MA (Rec: 01/12/21 12:05 MA [id number]) Out-Patient Physical Therapy Visit Information Visit Information Visit Type Treatment Note Visit Note 03/20 Visit Start Time 11:15 Visit Stop Time 12:00 Total Visit Minutes 45 Visit Number 8 Number of IP ARCHITECT Visits 2 PT-OP-B Current Condition Start: 11/29/20 17:37 Freq: Status: Active Protocol: Document 12/05/20 11:25 [facility] (Rec: 12/05/20 12:10 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 She has babied back since surgeries and notes flex is worse than ext typically. Pt reports she has tingling and pain in L buttocks and standing is the worst where it will grab and tingle in buttocks L and can relieve by sititng down. Pt notes she is always hiked up on L side. Pt exercises with a maintenance trainer on zoom w/ focus on stretches. Pt reports pain has increased over the past 6 weeks. 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 Prior Treatments and Tests Therapeutic massage-painful during, does not help, pulsed magnawave-did not help Treatment Goals Patient/Caregiver Goals Be able stand longer without pain Personal Factors Other Personal Factors That May Effect B TKAs, hysterectomy, L4-5 Therapy/Recovery fusion then repair, L TONY post approach PT-OP-C Subjective Start: 11/29/20 17:37 Freq: Status: Active Protocol: Document 01/12/21 11:20 MA (Rec: 01/12/21 12:05 MA [id number]) OP-PT Subjective Patient Comments Patient Comments Pt woke up with soreness but had a workout session with maintenance trainer and feels much looser now. The L side of her back is bothering her more today. PT-OP-D Balance Start: 11/29/20 17:37 Freq: Status: Active Protocol: Document 12/05/20 11:25 LR (Rec: 12/05/20 12:10 [facility] [id number]) Balance Tests Single Limb Standing Single Limb- Right 5 Single Limb- Left 4 PT-OP-F Manual Assessment Start: 11/29/20 17:37 Freq: Status: Active Protocol: Document 12/05/20 11:25 LR (Rec: 12/05/20 12:10 [facility] [id number]) Manual Assessments Soft Tissue Assessment Soft Tissue Mobility Assessment tightness in L glute/QL Joint Mobility Assessment Joint Mobility Assessment L iliac crest higher, equal greater trochanters PT-OP-G Mobility & Gait Start: 11/29/20 17:37 Freq: Status: Active Protocol: Document 12/05/20 11:25 [facility] (Rec: 12/05/20 12:10 [facility] [id number]) OP Gait Assessment Comments Gait Comments tightness L glutes & QL PT-OP-J Posture/Palpation/Skin Start: 11/29/20 17:37 Freq: Status: Active Protocol: Document 12/05/20 11:25 [facility] (Rec: 12/05/20 12:10 [facility] [id number]) Posture Evaluation Radha Postural Classification System Radha Postural Classifications Posterior/Anterior Vertebral Compression Test 1 Lumbar Protective Mechanism Left AP 1 Lumbar Protective Mechanism Right AP 0 Lumbar Protective Mechanism Left PA 1 Lumbar Protective Mechanism Right PA 0 Comments Posture Comments L pelvic shear, L>R ER of foot , R rotation, hands behind creates more comfort, kyphosis fwd head PT-OP-K Range of Motion Start: 11/29/20 17:37 Freq: Status: Active Protocol: Document 12/05/20 11:25 LR (Rec: 12/05/20 12:10 [facility] [id number]) Lumbar Spine Range of Motion Lumbar Spine Active Degrees Flexion 54 Extension 13 Rotation Left 64 Rotation Right 58 Lateral Flexion Left 6 Lateral Flexion Right 16 Comments pain in hip coming up from flex & pain w/L SB PT-OP-L Special Tests Start: 11/29/20 17:37 Freq: Status: Active Protocol: Document 12/05/20 11:25 [facility] (Rec: 12/05/20 12:10 [facility] [id number]) Special Tests Lumbar Spine Special Tests Víctor Test Results WNL Straight Leg Raise Test Results L 68, R 64 Slump Test Results neg B PT-OP-M Strength Start: 11/29/20 17:37 Freq: Status: Active Protocol: Document 12/05/20 11:25 [facility] (Rec: 12/05/20 12:10 [facility] [id number]) Hip Strength Hip Manual Muscle Testing Right Flexion (L2) 3 Fair Extension (S1) 3+ Fair+ Abduction 3+ Fair+ External Rotation 3+ Fair+ Internal Rotation 5 Normal Left Flexion (L2) 3 Fair Extension (S1) 3+ Fair+ Abduction 3 Fair External Rotation 2+ Poor+ Internal Rotation 5 Normal Knee Strength Knee Manual Muscle Testing Right Flexion (S2) 5 Normal Extension (L3) 5 Normal Left Flexion (S2) 5 Normal Extension (L3) 5 Normal Ankle/Foot Strength Ankle and Foot Manual Muscle Testing Right Dorsiflexion (L4) 5 Normal Plantarflexion (S1) 5 Normal Left Dorsiflexion (L4) 5 Normal Plantarflexion (S1) 5 Normal Comments PF tested seated PT-OP-Q Treatments Start: 11/29/20 17:37 Freq: Status: Active Protocol: Document 01/12/21 11:20 MA (Rec: 01/12/21 12:05 MA [id number]) Therapeutic Exercises Supine Exercises LTR Supine Exercise Name Lower trunk rotation Side bilateral Reps/Minutes 6x10 sec hold Víctor Stretch Side bilateral Reps/Minutes 60 sec ea Piriformis Stretch Side bilateral Reps/Minutes 30 sec ea Standing Exercises Squats Standing Exercise Name mini squats over plinth Side bilateral Reps/Minutes x10 Comments keeping weight in heels Tennis ball Standing Exercise Name prone into hip flexors today Side left Equipment Used tennis ball Reps/Minutes 60 sec Manual Therapy Treatment Soft Tissue Mobilization Hip Body Location L anterior hip & posterior iliac crest Mobilization Type Myofascial Release,Rolling, Sustained Pressure Intensity/Depth Moderate Comments supine and prone PT-OP-T Assessment and Plan Start: 11/29/20 17:37 Freq: Status: Active Protocol: Document 01/12/21 11:20 MA (Rec: 01/12/21 12:05 MA [id number]) Physical Therapy Assessment Goals activities Senior Care Goal (LTG) Pt will be able to garden as she wishes without inc pain. LTG Duration 02/04/21 posture Log Loader Helper Goal (LTG) Pt will have improved posture by improvement of VCT to at least 4/5 without cuieng. LTG Duration 02/04/21 strength Short Term Goal (STG) Pt will be indep w/HEP. STG Duration 01/04/21 Senior Care Goal (LTG) Pt will have improved strength of hips to at least 4/5 in all planes and at least 3/5 in all planes for LPM to show imrpoved stability to improve pt's mechanics and ability to particiapte in typical activities without pain. LTG Duration 02/04/21 balance Log Loader Helper Goal (LTG) Pt will improve SLS to 10 sec B without significant lat shearing. LTG Duration 02/04/21 standing Short Term Goal (STG) Pt will be able to stand to prep animal meals without increased pain. STG Duration 01/04/21 Log Loader Helper Goal (LTG) Pt will be able to stand as needed for all kitchen activties and when out in town without inc pain. LTG Duration 02/04/21 Assessment Summary Assessment Mary arrives with L side LBP. Her maintenance trainer told her to tell PT to work on her hip flexors. After STM to hip flexors, had pt try prone on tennis ball to release hip flexors and added to HEP. Pt has improved her hip hinge and is able to squat with good form after cues to keep weight back in heels to avoid heels lifitng from floor. Will continue to work on squats and SLS next session. Physical Therapy Plan Frequency and Duration Frequency of Treatment 2x/Week Duration of Treatment 2 months Plan of Care Start Date 12/05/20 Plan of Care End Date 02/04/21 Therapeutic Interventions Therapeutic Interventions Aquatic Therapy,Balance Training,Gait Training,Home Exercise Program,Joint Mobilizations,Manual Therapy, Neuromuscular Re-education, Patient/Caregiver Education, Self-Care/Home Management,Soft Tissue Mobilization,Taping, Therapeutic Activities, Therapeutic Exercises Modalities Cold Pack/Ice Massage,Electric Stimulation,Hot Packs, Ultrasound Next Visit Focus/Plan Next Note Type Treatment Note Next Visit Plan work on standing posture & functional activities in standing with focus on spinal position, review hip hinge and start working on squat
--- NOTE | 2021-01-16 12:15 | PT.OTN ---
Current Diagnoses Other chronic pain (01/16/21) Pain in left hip (01/16/21) Low back pain (01/16/21) Dorsalgia, unspecified (01/16/21) Pain in left leg (01/16/21) Other abnormalities of gait and mobility (01/16/21) Abnormal posture (01/16/21) Weakness (01/16/21) Physical Therapy Treatment Note PT-OP-A Visit Information Start: 11/29/20 17:37 Freq: Status: Active Protocol: Document 01/16/21 09:52 [facility] (Rec: 01/16/21 12:15 [facility] [id number]) Out-Patient Physical Therapy Visit Information Visit Information Visit Type Progress Note Visit Note 08/20 Visit Start Time 09:51 Visit Stop Time 10:31 Total Visit Minutes 40 Visit Number 9 Number of TEA PLANTATION WORKER Visits 0 PT-OP-B Current Condition Start: 11/29/20 17:37 Freq: Status: Active Protocol: Document 12/05/20 11:25 [facility] (Rec: 12/05/20 12:10 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 She has babied back since surgeries and notes flex is worse than ext typically. Pt reports she has tingling and pain in L buttocks and standing is the worst where it will grab and tingle in buttocks L and can relieve by sititng down. Pt notes she is always hiked up on L side. Pt exercises with a computer trainer on zoom w/ focus on stretches. Pt reports pain has increased over the past 6 weeks. 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 Prior Treatments and Tests Therapeutic massage-painful during, does not help, pulsed magnawave-did not help Treatment Goals Patient/Caregiver Goals Be able stand longer without pain Personal Factors Other Personal Factors That May Effect B TKAs, hysterectomy, L4-5 Therapy/Recovery fusion then repair, L OTNY post approach PT-OP-C Subjective Start: 11/29/20 17:37 Freq: Status: Active Protocol: Document 01/16/21 09:52 [facility] (Rec: 01/16/21 12:15 [facility] [id number]) OP-PT Subjective Patient Comments Patient Comments Pt reprots overall doing better vut standing still hardest on SI Region L PT-OP-D Balance Start: 11/29/20 17:37 Freq: Status: Active Protocol: Document 01/16/21 09:52 [facility] (Rec: 01/16/21 12:15 [facility] [id number]) Balance Tests Single Limb Standing Single Limb- Right 9 Single Limb- Left 5 PT-OP-F Manual Assessment Start: 11/29/20 17:37 Freq: Status: Active Protocol: Document 12/05/20 11:25 [facility] (Rec: 12/05/20 12:10 [facility] [id number]) Manual Assessments Soft Tissue Assessment Soft Tissue Mobility Assessment tightness in L glute/QL Joint Mobility Assessment Joint Mobility Assessment L iliac crest higher, equal greater trochanters PT-OP-G Mobility & Gait Start: 11/29/20 17:37 Freq: Status: Active Protocol: Document 12/05/20 11:25 [facility] (Rec: 12/05/20 12:10 [facility] [id number]) OP Gait Assessment Comments Gait Comments tightness L glutes & QL PT-OP-J Posture/Palpation/Skin Start: 11/29/20 17:37 Freq: Status: Active Protocol: Document 01/16/21 09:52 [facility] (Rec: 01/16/21 12:15 [facility] [id number]) Posture Evaluation Radha Postural Classification System Vertebral Compression Test 2 Lumbar Protective Mechanism Left AP 0 Lumbar Protective Mechanism Right AP 2 Lumbar Protective Mechanism Left PA 1 Lumbar Protective Mechanism Right PA 2 PT-OP-K Range of Motion Start: 11/29/20 17:37 Freq: Status: Active Protocol: Document 12/05/20 11:25 [facility] (Rec: 12/05/20 12:10 [facility] [id number]) Lumbar Spine Range of Motion Lumbar Spine Active Degrees Flexion 54 Extension 13 Rotation Left 64 Rotation Right 58 Lateral Flexion Left 6 Lateral Flexion Right 16 Comments pain in hip coming up from flex & pain w/L SB PT-OP-L Special Tests Start: 11/29/20 17:37 Freq: Status: Active Protocol: Document 12/05/20 11:25 [facility] (Rec: 12/05/20 12:10 [facility] [id number]) Special Tests Lumbar Spine Special Tests Víctor Test Results WNL Straight Leg Raise Test Results L 68, R 64 Slump Test Results neg B PT-OP-M Strength Start: 11/29/20 17:37 Freq: Status: Active Protocol: Document 01/16/21 09:52 [facility] (Rec: 01/16/21 12:15 [facility] [id number]) Hip Strength Hip Manual Muscle Testing Right Flexion (L2) 3+ Fair+ Extension (S1) 4- Good- Abduction 4- Good- External Rotation 4 Good Internal Rotation 5 Normal Left Flexion (L2) 3+ Fair+ Extension (S1) 3+ Fair+ Abduction 4- Good- External Rotation 2+ Poor+ Internal Rotation 5 Normal Knee Strength Knee Manual Muscle Testing Right Flexion (S2) 5 Normal Extension (L3) 5 Normal Left Flexion (S2) 5 Normal Extension (L3) 5 Normal Ankle/Foot Strength Ankle and Foot Manual Muscle Testing Right Dorsiflexion (L4) 5 Normal Plantarflexion (S1) 5 Normal Left Dorsiflexion (L4) 5 Normal Plantarflexion (S1) 5 Normal Comments PF tested seated PT-OP-Q Treatments Start: 11/29/20 17:37 Freq: Status: Active Protocol: Document 01/16/21 09:52 [facility] (Rec: 01/16/21 12:15 [facility] [id number]) Therapeutic Exercises Standing Exercises hip hinge Standing Exercise Name working on hip movement only w /yard stick (seated x10 first) Side bilateral Reps/Minutes 20 standing Squats Standing Exercise Name w/yard stick on back Side bilateral Reps/Minutes 15 Comments over plinth Therapeutic Activity Therapeutic Activity lifting Name edu working on neutral back- did squat and machine pecan picker and golfer machine pecan picker Neuro Re-Education Treatment Balance Activities SLS Details 1. SLS trials 2. toe taps to 12 ins tep B Self-Care/Home Management Treatment Education Other Education edu w/vacuuming of how to use body mechanics. edu why using knees & hips before back w/ bending over PT-OP-T Assessment and Plan Start: 11/29/20 17:37 Freq: Status: Active Protocol: Document 01/16/21 09:52 [facility] (Rec: 01/16/21 12:15 [facility] [id number]) Physical Therapy Assessment Goals activities Halfway Goal (LTG) Pt will be able to garden as she wishes without inc pain. 01/16 does 30 min at a time to avoid inc pain LTG Duration 03/18/21 posture Halfway Goal (LTG) Pt will have improved posture by improvement of VCT to at least 4/5 without cuieng. 01/16-improving LTG Duration 03/18/21 strength Short Term Goal (STG) Pt will be indep w/HEP. STG Duration achieved Halfway Goal (LTG) Pt will have improved strength of hips to at least 4/5 in all planes and at least 3/5 in all planes for LPM to show imrpoved stability to improve pt's mechanics and ability to particiapte in typical activities without pain. 01/16-improving LTG Duration 03/18/21 balance Halfway Goal (LTG) Pt will improve SLS to 10 sec B without significant lat shearing. 01/16 improving LTG Duration 03/18 standing Short Term Goal (STG) Pt will be able to stand to prep animal meals without increased pain. STG Duration achieved Halfway Goal (LTG) Pt will be able to stand as needed for all kitchen activties and when out in town without inc pain. 01/16- about 5 min before starts to aggrevate LTG Duration 03/18/21 Assessment Summary Assessment Pt has made excellent progress with her strength, balance, and posture and is improving fucnitonally with imrpoved ability to stand. She has been working on meovement mechanics in the last few sessions with ADLs and pt is trying implement better body mechanics during day to day activities. She would bneeift from cont PT to work on her posture, balance, LE strength and ADL mechanics. Physical Therapy Plan Frequency and Duration Frequency of Treatment 2x/Week Duration of Treatment 2 months Plan of Care Start Date 01/16/21 Plan of Care End Date 03/18/21 Therapeutic Interventions Therapeutic Interventions Aquatic Therapy,Balance Training,Gait Training,Home Exercise Program,Joint Mobilizations,Manual Therapy, Neuromuscular Re-education, Patient/Caregiver Education, Self-Care/Home Management,Soft Tissue Mobilization,Taping, Therapeutic Activities, Therapeutic Exercises Modalities Cold Pack/Ice Massage,Electric Stimulation,Hot Packs, Ultrasound Next Visit Focus/Plan Next Note Type Treatment Note
--- NOTE | 2021-01-16 12:15 | PT.OPPOC ---
Physical, Occupational & Speech Therapy At [facility] Current Diagnoses Other chronic pain (01/16/21) Pain in left hip (01/16/21) Low back pain (01/16/21) Dorsalgia, unspecified (01/16/21) Pain in left leg (01/16/21) Other abnormalities of gait and mobility (01/16/21) Abnormal posture (01/16/21) Weakness (01/16/21) Visit Care Team Role Provider Type RIGOBERTO Moulton Attending Provider Advanced Charge Gang Weigher Family Provider Primary Care Provider Referring Provider Specialty: Family Practice Address: [address] [place] [address], [facility] Email: [email or web address] Plan Of Care PT-OP-T Assessment and Plan Start: 11/29/20 17:37 Freq: Status: Active Protocol: Document 01/16/21 09:52 [facility] (Rec: 01/16/21 12:15 [facility] [id number]) Physical Therapy Assessment Goals activities Skilled Nursing Goal (LTG) Pt will be able to garden as she wishes without inc pain. 01/16 does 30 min at a time to avoid inc pain LTG Duration 03/18/21 posture Skilled Nursing Goal (LTG) Pt will have improved posture by improvement of VCT to at least 4/5 without cuieng. 01/16-improving LTG Duration 03/18/21 strength Short Term Goal (STG) Pt will be indep w/HEP. STG Duration achieved Educational Manager Goal (LTG) Pt will have improved strength of hips to at least 4/5 in all planes and at least 3/5 in all planes for LPM to show imrpoved stability to improve pt's mechanics and ability to particiapte in typical activities without pain. 01/16-improving LTG Duration 03/18/21 balance Educational Manager Goal (LTG) Pt will improve SLS to 10 sec B without significant lat shearing. 01/16 improving LTG Duration 03/18 standing Short Term Goal (STG) Pt will be able to stand to prep animal meals without increased pain. STG Duration achieved Educational Manager Goal (LTG) Pt will be able to stand as needed for all kitchen activties and when out in town without inc pain. 01/16- about 5 min before starts to aggrevate LTG Duration 03/18/21 Assessment Summary Assessment Pt has made excellent progress with her strength, balance, and posture and is improving fucnitonally with imrpoved ability to stand. She has been working on meovement mechanics in the last few sessions with ADLs and pt is trying implement better body mechanics during day to day activities. She would bneeift from cont PT to work on her posture, balance, LE strength and ADL mechanics. Physical Therapy Plan Frequency and Duration Frequency of Treatment 2x/Week Duration of Treatment 2 months Plan of Care Start Date 01/16/21 Plan of Care End Date 03/18/21 Therapeutic Interventions Therapeutic Interventions Aquatic Therapy,Balance Training,Gait Training,Home Exercise Program,Joint Mobilizations,Manual Therapy, Neuromuscular Re-education, Patient/Caregiver Education, Self-Care/Home Management,Soft Tissue Mobilization,Taping, Therapeutic Activities, Therapeutic Exercises Modalities Cold Pack/Ice Massage,Electric Stimulation,Hot Packs, Ultrasound Next Visit Focus/Plan Next Note Type Treatment Note Plan of Care Dates Plan of Care Start Date 01/16/21 Plan of Care End Date 03/18/21 Electronically Signed by: Mone Bettencourt, PT 01/16/21 [id number] Please Sign and Return: I have reviewed this Plan of Care and certify that the skilled therapy services above are required to meet the patient?s needs. Physician Signature Date Printed Name and Credentials Clinical Instructor Signature Printed Name and Credentials
--- NOTE | 2021-01-22 10:33 | PT.OTN ---
Current Diagnoses Other chronic pain (01/22/21) Pain in left hip (01/22/21) Low back pain (01/22/21) Dorsalgia, unspecified (01/22/21) Pain in left leg (01/22/21) Other abnormalities of gait and mobility (01/22/21) Abnormal posture (01/22/21) Weakness (01/22/21) Physical Therapy Treatment Note PT-OP-A Visit Information Start: 11/29/20 17:37 Freq: Status: Active Protocol: Document 01/22/21 09:47 [facility] (Rec: 01/22/21 10:30 [facility] [id number]) Out-Patient Physical Therapy Visit Information Visit Information Visit Type Treatment Note Visit Note 09/20 Visit Start Time 09:05 Visit Stop Time 09:45 Total Visit Minutes 40 Visit Number 10 Number of NEUROLOGY DIRECTOR Visits 0 PT-OP-B Current Condition Start: 11/29/20 17:37 Freq: Status: Active Protocol: Document 12/05/20 11:25 [facility] (Rec: 12/05/20 12:10 [facility] [id number]) Current Condition History of Current Condition Onset Date 6 weeks ago Current Complaints L glute/SI pain History of Current Condition Pt has had chornic back pain with hx of L4-5 fusion in 2004 then repair again in 2009 w/ L3-4 then 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 She has babied back since surgeries and notes flex is worse than ext typically. Pt reports she has tingling and pain in L buttocks and standing is the worst where it will grab and tingle in buttocks L and can relieve by sititng down. Pt notes she is always hiked up on L side. Pt exercises with a lion trainer on zoom w/ focus on stretches. Pt reports pain has increased over the past 6 weeks. 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 Prior Treatments and Tests Therapeutic massage-painful during, does not help, pulsed magnawave-did not help Treatment Goals Patient/Caregiver Goals Be able stand longer without pain Personal Factors Other Personal Factors That May Effect B TKAs, hysterectomy, L4-5 Therapy/Recovery fusion then repair, L TONY post approach PT-OP-C Subjective Start: 11/29/20 17:37 Freq: Status: Active Protocol: Document 01/22/21 09:47 [facility] (Rec: 01/22/21 10:30 [facility] [id number]) OP-PT Subjective Patient Comments Patient Comments Pt reports she didn't realize how much she bent over in her day. She has been working on mechanics since last session Patient Reported Progress Improving PT-OP-D Balance Start: 11/29/20 17:37 Freq: Status: Active Protocol: Document 01/16/21 09:52 [facility] (Rec: 01/16/21 12:15 [facility] [id number]) Balance Tests Single Limb Standing Single Limb- Right 9 Single Limb- Left 5 PT-OP-F Manual Assessment Start: 11/29/20 17:37 Freq: Status: Active Protocol: Document 12/05/20 11:25 [facility] (Rec: 12/05/20 12:10 [facility] [id number]) Manual Assessments Soft Tissue Assessment Soft Tissue Mobility Assessment tightness in L glute/QL Joint Mobility Assessment Joint Mobility Assessment L iliac crest higher, equal greater trochanters PT-OP-G Mobility & Gait Start: 11/29/20 17:37 Freq: Status: Active Protocol: Document 12/05/20 11:25 [facility] (Rec: 12/05/20 12:10 [facility] [id number]) OP Gait Assessment Comments Gait Comments tightness L glutes & QL PT-OP-J Posture/Palpation/Skin Start: 11/29/20 17:37 Freq: Status: Active Protocol: Document 01/16/21 09:52 [facility] (Rec: 01/16/21 12:15 [facility] [id number]) Posture Evaluation Radha Postural Classification System Vertebral Compression Test 2 Lumbar Protective Mechanism Left AP 0 Lumbar Protective Mechanism Right AP 2 Lumbar Protective Mechanism Left PA 1 Lumbar Protective Mechanism Right PA 2 PT-OP-K Range of Motion Start: 11/29/20 17:37 Freq: Status: Active Protocol: Document 12/05/20 11:25 [facility] (Rec: 12/05/20 12:10 [facility] [id number]) Lumbar Spine Range of Motion Lumbar Spine Active Degrees Flexion 54 Extension 13 Rotation Left 64 Rotation Right 58 Lateral Flexion Left 6 Lateral Flexion Right 16 Comments pain in hip coming up from flex & pain w/L SB PT-OP-L Special Tests Start: 11/29/20 17:37 Freq: Status: Active Protocol: Document 12/05/20 11:25 [facility] (Rec: 12/05/20 12:10 [facility] [id number]) Special Tests Lumbar Spine Special Tests Víctor Test Results WNL Straight Leg Raise Test Results L 68, R 64 Slump Test Results neg B PT-OP-M Strength Start: 11/29/20 17:37 Freq: Status: Active Protocol: Document 01/16/21 09:52 [facility] (Rec: 01/16/21 12:15 [facility] [id number]) Hip Strength Hip Manual Muscle Testing Right Flexion (L2) 3+ Fair+ Extension (S1) 4- Good- Abduction 4- Good- External Rotation 4 Good Internal Rotation 5 Normal Left Flexion (L2) 3+ Fair+ Extension (S1) 3+ Fair+ Abduction 4- Good- External Rotation 2+ Poor+ Internal Rotation 5 Normal Knee Strength Knee Manual Muscle Testing Right Flexion (S2) 5 Normal Extension (L3) 5 Normal Left Flexion (S2) 5 Normal Extension (L3) 5 Normal Ankle/Foot Strength Ankle and Foot Manual Muscle Testing Right Dorsiflexion (L4) 5 Normal Plantarflexion (S1) 5 Normal Left Dorsiflexion (L4) 5 Normal Plantarflexion (S1) 5 Normal Comments PF tested seated PT-OP-Q Treatments Start: 11/29/20 17:37 Freq: Status: Active Protocol: Document 01/22/21 09:47 [facility] (Rec: 01/22/21 10:30 [facility] [id number]) Therapeutic Exercises Standing Exercises hip hikes Side bilateral Reps/Minutes 2x6 lunges Side bilateral Equipment Used hand on plinth Reps/Minutes 2x6 hip hinge Standing Exercise Name working on hip movement only Side bilateral Reps/Minutes 5 Squats Side bilateral Reps/Minutes 2x12 Comments over plinth Therapeutic Activity Therapeutic Activity lifting Name review of lifting mechanics Manual Therapy Treatment Soft Tissue Mobilization QL Body Location L Mobilization Type Sustained Pressure,Trigger Point Release Intensity/Depth Moderate Body Position Prone Neuro Re-Education Treatment Other Activities pnf Details post dep L Reps/Duration rhythmic initiation & sustained hold PT-OP-T Assessment and Plan Start: 11/29/20 17:37 Freq: Status: Active Protocol: Document 01/22/21 09:47 [facility] (Rec: 01/22/21 10:30 [facility] [id number]) Physical Therapy Assessment Goals activities Senior Care Goal (LTG) Pt will be able to garden as she wishes without inc pain. 01/16 does 30 min at a time to avoid inc pain LTG Duration 03/18/21 posture Senior Care Goal (LTG) Pt will have improved posture by improvement of VCT to at least 4/5 without cuieng. 01/16-improving LTG Duration 03/18/21 strength Short Term Goal (STG) Pt will be indep w/HEP. STG Duration achieved Senior Care Goal (LTG) Pt will have improved strength of hips to at least 4/5 in all planes and at least 3/5 in all planes for LPM to show imrpoved stability to improve pt's mechanics and ability to particiapte in typical activities without pain. 01/16-improving LTG Duration 03/18/21 balance Senior Care Goal (LTG) Pt will improve SLS to 10 sec B without significant lat shearing. 01/16 improving LTG Duration 03/18 standing Short Term Goal (STG) Pt will be able to stand to prep animal meals without increased pain. STG Duration achieved Senior Care Goal (LTG) Pt will be able to stand as needed for all kitchen activties and when out in town without inc pain. 01/16- about 5 min before starts to aggrevate LTG Duration 03/18/21 Assessment Summary Assessment pt doing much better with squat mechanics and hip hinge without cueing. She had significant difficulty with hip hike on LLE with more difficultyw ith glute activation which is likely part of why she gets pain in standing d/t difficulty wtih ability to achieve post depression Physical Therapy Plan Frequency and Duration Frequency of Treatment 2x/Week Duration of Treatment 2 months Plan of Care Start Date 01/16/21 Plan of Care End Date 03/18/21 Next Visit Focus/Plan Next Note Type Treatment Note Next Visit Plan review squats, lunges & hip hikes and cont to work on standing posture & glute strength, side steps, SL PNF for post dep L
--- NOTE | 2021-01-25 10:22 | PT.OTN ---
Current Diagnoses Other chronic pain (01/25/21) Pain in left hip (01/25/21) Low back pain (01/25/21) Dorsalgia, unspecified (01/25/21) Pain in left leg (01/25/21) Other abnormalities of gait and mobility (01/25/21) Abnormal posture (01/25/21) Weakness (01/25/21) Physical Therapy Treatment Note PT-OP-A Visit Information Start: 11/29/20 17:37 Freq: Status: Active Protocol: Document 01/25/21 08:57 [facility] (Rec: 01/25/21 10:21 [facility] [id number]) Out-Patient Physical Therapy Visit Information Visit Information Visit Type Treatment Note Visit Note 10/18 Visit Start Time 09:00 Visit Stop Time 09:45 Total Visit Minutes 45 Visit Number 11 Number of INTERNAL RECRUITER Visits 0 PT-OP-B Current Condition Start: 11/29/20 17:37 Freq: Status: Active Protocol: Document 12/05/20 11:25 [facility] (Rec: 12/05/20 12:10 [facility] [id number]) Current Condition History of Current Condition Onset Date 6 weeks ago Current Complaints L glute/SI pain History of Current Condition Pt has had chornic back pain with hx of L4-5 fusion in 2004 then repair again in 2009 w/ L3-4 then 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 She has babied back since surgeries and notes flex is worse than ext typically. Pt reports she has tingling and pain in L buttocks and standing is the worst where it will grab and tingle in buttocks L and can relieve by sititng down. Pt notes she is always hiked up on L side. Pt exercises with a vocational trainer on zoom w/ focus on stretches. Pt reports pain has increased over the past 6 weeks. 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 Prior Treatments and Tests Therapeutic massage-painful during, does not help, pulsed magnawave-did not help Treatment Goals Patient/Caregiver Goals Be able stand longer without pain Personal Factors Other Personal Factors That May Effect B TKAs, hysterectomy, L4-5 Therapy/Recovery fusion then repair, L TONY post approach PT-OP-C Subjective Start: 11/29/20 17:37 Freq: Status: Active Protocol: Document 01/25/21 08:57 [facility] (Rec: 01/25/21 10:21 [facility] [id number]) OP-PT Subjective Patient Comments Patient Comments Pt reports being sore in L LB after last session but was gone by next day PT-OP-D Balance Start: 11/29/20 17:37 Freq: Status: Active Protocol: Document 01/16/21 09:52 [facility] (Rec: 01/16/21 12:15 [facility] [id number]) Balance Tests Single Limb Standing Single Limb- Right 9 Single Limb- Left 5 PT-OP-F Manual Assessment Start: 11/29/20 17:37 Freq: Status: Active Protocol: Document 12/05/20 11:25 [facility] (Rec: 12/05/20 12:10 [facility] [id number]) Manual Assessments Soft Tissue Assessment Soft Tissue Mobility Assessment tightness in L glute/QL Joint Mobility Assessment Joint Mobility Assessment L iliac crest higher, equal greater trochanters PT-OP-G Mobility & Gait Start: 11/29/20 17:37 Freq: Status: Active Protocol: Document 12/05/20 11:25 [facility] (Rec: 12/05/20 12:10 [facility] [id number]) OP Gait Assessment Comments Gait Comments tightness L glutes & QL PT-OP-J Posture/Palpation/Skin Start: 11/29/20 17:37 Freq: Status: Active Protocol: Document 01/16/21 09:52 [facility] (Rec: 01/16/21 12:15 [facility] [id number]) Posture Evaluation Radha Postural Classification System Vertebral Compression Test 2 Lumbar Protective Mechanism Left AP 0 Lumbar Protective Mechanism Right AP 2 Lumbar Protective Mechanism Left PA 1 Lumbar Protective Mechanism Right PA 2 PT-OP-K Range of Motion Start: 11/29/20 17:37 Freq: Status: Active Protocol: Document 12/05/20 11:25 [facility] (Rec: 12/05/20 12:10 [facility] [id number]) Lumbar Spine Range of Motion Lumbar Spine Active Degrees Flexion 54 Extension 13 Rotation Left 64 Rotation Right 58 Lateral Flexion Left 6 Lateral Flexion Right 16 Comments pain in hip coming up from flex & pain w/L SB PT-OP-L Special Tests Start: 11/29/20 17:37 Freq: Status: Active Protocol: Document 12/05/20 11:25 [facility] (Rec: 12/05/20 12:10 [facility] [id number]) Special Tests Lumbar Spine Special Tests Víctor Test Results WNL Straight Leg Raise Test Results L 68, R 64 Slump Test Results neg B PT-OP-M Strength Start: 11/29/20 17:37 Freq: Status: Active Protocol: Document 01/16/21 09:52 [facility] (Rec: 01/16/21 12:15 [facility] [id number]) Hip Strength Hip Manual Muscle Testing Right Flexion (L2) 3+ Fair+ Extension (S1) 4- Good- Abduction 4- Good- External Rotation 4 Good Internal Rotation 5 Normal Left Flexion (L2) 3+ Fair+ Extension (S1) 3+ Fair+ Abduction 4- Good- External Rotation 2+ Poor+ Internal Rotation 5 Normal Knee Strength Knee Manual Muscle Testing Right Flexion (S2) 5 Normal Extension (L3) 5 Normal Left Flexion (S2) 5 Normal Extension (L3) 5 Normal Ankle/Foot Strength Ankle and Foot Manual Muscle Testing Right Dorsiflexion (L4) 5 Normal Plantarflexion (S1) 5 Normal Left Dorsiflexion (L4) 5 Normal Plantarflexion (S1) 5 Normal Comments PF tested seated PT-OP-Q Treatments Start: 11/29/20 17:37 Freq: Status: Active Protocol: Document 01/25/21 08:57 [facility] (Rec: 01/25/21 10:21 [facility] [id number]) Therapeutic Exercises Sidelying Exercises hip abd Side left Reps/Minutes 10 Comments focus on leg in correct position Standing Exercises sidestep Side bilateral Equipment Used yellow tband Reps/Minutes 20ft hip hikes Side bilateral Reps/Minutes 12 lunges Side bilateral Equipment Used hand on plinth Reps/Minutes 10 hip hinge Standing Exercise Name working on hip movement only Side bilateral Reps/Minutes 12 Comments yard stick Squats Side bilateral Reps/Minutes 2x12 Comments over plinth Gait Training Gait Activity gait Comments workin prabhjot push off in perdue & mirror, cues to relax arms also Manual Therapy Treatment Soft Tissue Mobilization QL Body Location L Mobilization Type Sustained Pressure,Trigger Point Release Intensity/Depth Moderate Body Position S/l Comments w/ant elevaiton/post dep Neuro Re-Education Treatment Other Activities pnf Details post dep L Comments 1. rhytmic intiation through pelvis 2. sustained hold in pelvis progressed to w/LE pattern PT-OP-T Assessment and Plan Start: 11/29/20 17:37 Freq: Status: Active Protocol: Document 01/25/21 08:57 [facility] (Rec: 01/25/21 10:21 [facility] [id number]) Physical Therapy Assessment Goals activities Director Of Audiology Goal (LTG) Pt will be able to garden as she wishes without inc pain. 01/16 does 30 min at a time to avoid inc pain LTG Duration 03/18/21 posture Director Of Audiology Goal (LTG) Pt will have improved posture by improvement of VCT to at least 4/5 without cuieng. 01/16-improving LTG Duration 03/18/21 strength Short Term Goal (STG) Pt will be indep w/HEP. STG Duration achieved Detention Goal (LTG) Pt will have improved strength of hips to at least 4/5 in all planes and at least 3/5 in all planes for LPM to show imrpoved stability to improve pt's mechanics and ability to particiapte in typical activities without pain. 01/16-improving LTG Duration 03/18/21 balance Director Of Audiology Goal (LTG) Pt will improve SLS to 10 sec B without significant lat shearing. 01/16 improving LTG Duration 03/18 standing Short Term Goal (STG) Pt will be able to stand to prep animal meals without increased pain. STG Duration achieved Director Of Audiology Goal (LTG) Pt will be able to stand as needed for all kitchen activties and when out in town without inc pain. 01/16- about 5 min before starts to aggrevate LTG Duration 03/18/21 Assessment Summary Assessment Pt had significantly imrpoved gait after session w/less lat shifting. She has signfiicant weakness of L hip abd which likely is part of what inc pain dd/t difficulty w/wt acceptance on LLE. Physical Therapy Plan Frequency and Duration Frequency of Treatment 2x/Week Duration of Treatment 2 months Plan of Care Start Date 01/16/21 Plan of Care End Date 03/18/21 Next Visit Focus/Plan Next Note Type Treatment Note Next Visit Plan review squats, lunges & hip hikes and cont to work on standing posture & glute strength, side steps, SL PNF for post dep L, work on gait
--- NOTE | 2021-01-29 09:59 | PT.OTN ---
Current Diagnoses Other chronic pain (01/29/21) Pain in left hip (01/29/21) Low back pain (01/29/21) Dorsalgia, unspecified (01/29/21) Pain in left leg (01/29/21) Other abnormalities of gait and mobility (01/29/21) Abnormal posture (01/29/21) Weakness (01/29/21) Physical Therapy Treatment Note PT-OP-A Visit Information Start: 11/29/20 17:37 Freq: Status: Active Protocol: Document 01/29/21 09:01 [facility] (Rec: 01/29/21 09:58 [facility] [id number]) Out-Patient Physical Therapy Visit Information Visit Information Visit Type Treatment Note Visit Note 11/18 Visit Start Time 09:03 Visit Stop Time 09:43 Total Visit Minutes 40 Visit Number 12 Number of TRIM AND BURR OPERATOR Visits 0 PT-OP-B Current Condition Start: 11/29/20 17:37 Freq: Status: Active Protocol: Document 12/05/20 11:25 [facility] (Rec: 12/05/20 12:10 [facility] [id number]) Current Condition History of Current Condition Onset Date 6 weeks ago Current Complaints L glute/SI pain History of Current Condition Pt has had chornic back pain with hx of L4-5 fusion in 2004 then repair again in 2009 w/ L3-4 then 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 She has babied back since surgeries and notes flex is worse than ext typically. Pt reports she has tingling and pain in L buttocks and standing is the worst where it will grab and tingle in buttocks L and can relieve by sititng down. Pt notes she is always hiked up on L side. Pt exercises with a weight trainer on zoom w/ focus on stretches. Pt reports pain has increased over the past 6 weeks. 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 Prior Treatments and Tests Therapeutic massage-painful during, does not help, pulsed magnawave-did not help Treatment Goals Patient/Caregiver Goals Be able stand longer without pain Personal Factors Other Personal Factors That May Effect B TKAs, hysterectomy, L4-5 Therapy/Recovery fusion then repair, L TONY post approach PT-OP-C Subjective Start: 11/29/20 17:37 Freq: Status: Active Protocol: Document 01/29/21 09:01 [facility] (Rec: 01/29/21 09:58 [facility] [id number]) OP-PT Subjective Patient Comments Patient Comments Pt reports massage Friday and was sore over the weekend but doing good today PT-OP-D Balance Start: 11/29/20 17:37 Freq: Status: Active Protocol: Document 01/16/21 09:52 [facility] (Rec: 01/16/21 12:15 [facility] [id number]) Balance Tests Single Limb Standing Single Limb- Right 9 Single Limb- Left 5 PT-OP-F Manual Assessment Start: 11/29/20 17:37 Freq: Status: Active Protocol: Document 12/05/20 11:25 [facility] (Rec: 12/05/20 12:10 [facility] [id number]) Manual Assessments Soft Tissue Assessment Soft Tissue Mobility Assessment tightness in L glute/QL Joint Mobility Assessment Joint Mobility Assessment L iliac crest higher, equal greater trochanters PT-OP-G Mobility & Gait Start: 11/29/20 17:37 Freq: Status: Active Protocol: Document 12/05/20 11:25 [facility] (Rec: 12/05/20 12:10 [facility] [id number]) OP Gait Assessment Comments Gait Comments tightness L glutes & QL PT-OP-J Posture/Palpation/Skin Start: 11/29/20 17:37 Freq: Status: Active Protocol: Document 01/16/21 09:52 [facility] (Rec: 01/16/21 12:15 [facility] [id number]) Posture Evaluation Radha Postural Classification System Vertebral Compression Test 2 Lumbar Protective Mechanism Left AP 0 Lumbar Protective Mechanism Right AP 2 Lumbar Protective Mechanism Left PA 1 Lumbar Protective Mechanism Right PA 2 PT-OP-K Range of Motion Start: 11/29/20 17:37 Freq: Status: Active Protocol: Document 12/05/20 11:25 [facility] (Rec: 12/05/20 12:10 [facility] [id number]) Lumbar Spine Range of Motion Lumbar Spine Active Degrees Flexion 54 Extension 13 Rotation Left 64 Rotation Right 58 Lateral Flexion Left 6 Lateral Flexion Right 16 Comments pain in hip coming up from flex & pain w/L SB PT-OP-L Special Tests Start: 11/29/20 17:37 Freq: Status: Active Protocol: Document 12/05/20 11:25 [facility] (Rec: 12/05/20 12:10 [facility] [id number]) Special Tests Lumbar Spine Special Tests Víctor Test Results WNL Straight Leg Raise Test Results L 68, R 64 Slump Test Results neg B PT-OP-M Strength Start: 11/29/20 17:37 Freq: Status: Active Protocol: Document 01/16/21 09:52 [facility] (Rec: 01/16/21 12:15 [facility] [id number]) Hip Strength Hip Manual Muscle Testing Right Flexion (L2) 3+ Fair+ Extension (S1) 4- Good- Abduction 4- Good- External Rotation 4 Good Internal Rotation 5 Normal Left Flexion (L2) 3+ Fair+ Extension (S1) 3+ Fair+ Abduction 4- Good- External Rotation 2+ Poor+ Internal Rotation 5 Normal Knee Strength Knee Manual Muscle Testing Right Flexion (S2) 5 Normal Extension (L3) 5 Normal Left Flexion (S2) 5 Normal Extension (L3) 5 Normal Ankle/Foot Strength Ankle and Foot Manual Muscle Testing Right Dorsiflexion (L4) 5 Normal Plantarflexion (S1) 5 Normal Left Dorsiflexion (L4) 5 Normal Plantarflexion (S1) 5 Normal Comments PF tested seated PT-OP-Q Treatments Start: 11/29/20 17:37 Freq: Status: Active Protocol: Document 01/29/21 09:01 [facility] (Rec: 01/29/21 09:58 [facility] [id number]) Therapeutic Exercises Supine Exercises bridge Supine Exercise Name traction facilitaiton to work on neutral back position & core & glute activ Side bilateral Reps/Minutes 20 Sidelying Exercises hip abd Sidelying Exercise Name vs wall Side left Reps/Minutes 20 Comments focus on leg in correct position Standing Exercises wall posture Standing Exercise Name 90/90 HAbd Ues Side bilateral Reps/Minutes 15 sidestep Side bilateral Equipment Used yellow tband Reps/Minutes 20ft hip hikes Side bilateral Equipment Used counter Reps/Minutes 10 lunges Side bilateral Equipment Used hand on plinth Reps/Minutes 10 Squats Side bilateral Reps/Minutes 20 Comments over plinth Gait Training Gait Activity gait Comments 1.wt shifts to focus on full wt acceptance 2.working on push off in perdue & mirror, cues to relax arms also Self-Care/Home Management Treatment Education Other Education edu on HEP w/drawings PT-OP-T Assessment and Plan Start: 11/29/20 17:37 Freq: Status: Active Protocol: Document 01/29/21 09:01 [facility] (Rec: 01/29/21 09:58 [facility] [id number]) Physical Therapy Assessment Goals activities Rail Car Repair Carman Goal (LTG) Pt will be able to garden as she wishes without inc pain. 01/16 does 30 min at a time to avoid inc pain LTG Duration 03/18/21 posture [employer] Car [employer] Carman Goal (LTG) Pt will have improved posture by improvement of VCT to at least 4/5 without cuieng. 01/16-improving LTG Duration 03/18/21 strength Short Term Goal (STG) Pt will be indep w/HEP. STG Duration achieved [employer] Car [employer] Carman Goal (LTG) Pt will have improved strength of hips to at least 4/5 in all planes and at least 3/5 in all planes for LPM to show imrpoved stability to improve pt's mechanics and ability to particiapte in typical activities without pain. 01/16-improving LTG Duration 03/18/21 balance Group Home Goal (LTG) Pt will improve SLS to 10 sec B without significant lat shearing. 01/16 improving LTG Duration 03/18 standing Short Term Goal (STG) Pt will be able to stand to prep animal meals without increased pain. STG Duration achieved [employer] Car [employer] Carman Goal (LTG) Pt will be able to stand as needed for all kitchen activties and when out in town without inc pain. 01/16- about 5 min before starts to aggrevate LTG Duration 03/18/21 Assessment Summary Assessment Pt can imrpove gait with cueinga nd use of mirror. She feels fwd but does notice in mirro that she is not leaning fwd. She did much better with exercises today. Physical Therapy Plan Frequency and Duration Frequency of Treatment 2x/Week Duration of Treatment 2 months Plan of Care Start Date 01/16/21 Plan of Care End Date 03/18/21 Next Visit Focus/Plan Next Note Type Treatment Note Next Visit Plan review exercises, S/L PNF, cont to work on gait
--- NOTE | 2021-02-01 10:13 | PT.OTN ---
Current Diagnoses Other chronic pain (02/01/21) Pain in left hip (02/01/21) Low back pain (02/01/21) Dorsalgia, unspecified (02/01/21) Pain in left leg (02/01/21) Other abnormalities of gait and mobility (02/01/21) Abnormal posture (02/01/21) Weakness (02/01/21) Physical Therapy Treatment Note PT-OP-A Visit Information Start: 11/29/20 17:37 Freq: Status: Active Protocol: Document 02/01/21 09:03 [facility] (Rec: 02/01/21 10:13 [facility] [id number]) Out-Patient Physical Therapy Visit Information Visit Information Visit Type Treatment Note Visit Note 12/18 Visit Start Time 09:05 Visit Stop Time 09:45 Total Visit Minutes 40 Visit Number 13 Number of RIVER CAPTAIN Visits 0 PT-OP-B Current Condition Start: 11/29/20 17:37 Freq: Status: Active Protocol: Document 12/05/20 11:25 [facility] (Rec: 12/05/20 12:10 [facility] [id number]) Current Condition History of Current Condition Onset Date 6 weeks ago Current Complaints L glute/SI pain History of Current Condition Pt has had chornic back pain with hx of L4-5 fusion in 2004 then repair again in 2009 w/ L3-4 then 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 She has babied back since surgeries and notes flex is worse than ext typically. Pt reports she has tingling and pain in L buttocks and standing is the worst where it will grab and tingle in buttocks L and can relieve by sititng down. Pt notes she is always hiked up on L side. Pt exercises with a sap trainer on zoom w/ focus on stretches. Pt reports pain has increased over the past 6 weeks. 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 Prior Treatments and Tests Therapeutic massage-painful during, does not help, pulsed magnawave-did not help Treatment Goals Patient/Caregiver Goals Be able stand longer without pain Personal Factors Other Personal Factors That May Effect B TKAs, hysterectomy, L4-5 Therapy/Recovery fusion then repair, L TONY post approach PT-OP-C Subjective Start: 11/29/20 17:37 Freq: Status: Active Protocol: Document 02/01/21 09:03 [facility] (Rec: 02/01/21 10:13 [facility] [id number]) OP-PT Subjective Patient Comments Patient Comments Pt reports her back was sore yesterday but unsure what started it. PT-OP-D Balance Start: 11/29/20 17:37 Freq: Status: Active Protocol: Document 01/16/21 09:52 [facility] (Rec: 01/16/21 12:15 [facility] [id number]) Balance Tests Single Limb Standing Single Limb- Right 9 Single Limb- Left 5 PT-OP-F Manual Assessment Start: 11/29/20 17:37 Freq: Status: Active Protocol: Document 12/05/20 11:25 [facility] (Rec: 12/05/20 12:10 [facility] [id number]) Manual Assessments Soft Tissue Assessment Soft Tissue Mobility Assessment tightness in L glute/QL Joint Mobility Assessment Joint Mobility Assessment L iliac crest higher, equal greater trochanters PT-OP-G Mobility & Gait Start: 11/29/20 17:37 Freq: Status: Active Protocol: Document 12/05/20 11:25 [facility] (Rec: 12/05/20 12:10 [facility] [id number]) OP Gait Assessment Comments Gait Comments tightness L glutes & QL PT-OP-J Posture/Palpation/Skin Start: 11/29/20 17:37 Freq: Status: Active Protocol: Document 01/16/21 09:52 [facility] (Rec: 01/16/21 12:15 [facility] [id number]) Posture Evaluation Radha Postural Classification System Vertebral Compression Test 2 Lumbar Protective Mechanism Left AP 0 Lumbar Protective Mechanism Right AP 2 Lumbar Protective Mechanism Left PA 1 Lumbar Protective Mechanism Right PA 2 PT-OP-K Range of Motion Start: 11/29/20 17:37 Freq: Status: Active Protocol: Document 12/05/20 11:25 [facility] (Rec: 12/05/20 12:10 [facility] [id number]) Lumbar Spine Range of Motion Lumbar Spine Active Degrees Flexion 54 Extension 13 Rotation Left 64 Rotation Right 58 Lateral Flexion Left 6 Lateral Flexion Right 16 Comments pain in hip coming up from flex & pain w/L SB PT-OP-L Special Tests Start: 11/29/20 17:37 Freq: Status: Active Protocol: Document 12/05/20 11:25 [facility] (Rec: 12/05/20 12:10 [facility] [id number]) Special Tests Lumbar Spine Special Tests Víctor Test Results WNL Straight Leg Raise Test Results L 68, R 64 Slump Test Results neg B PT-OP-M Strength Start: 11/29/20 17:37 Freq: Status: Active Protocol: Document 01/16/21 09:52 [facility] (Rec: 01/16/21 12:15 [facility] [id number]) Hip Strength Hip Manual Muscle Testing Right Flexion (L2) 3+ Fair+ Extension (S1) 4- Good- Abduction 4- Good- External Rotation 4 Good Internal Rotation 5 Normal Left Flexion (L2) 3+ Fair+ Extension (S1) 3+ Fair+ Abduction 4- Good- External Rotation 2+ Poor+ Internal Rotation 5 Normal Knee Strength Knee Manual Muscle Testing Right Flexion (S2) 5 Normal Extension (L3) 5 Normal Left Flexion (S2) 5 Normal Extension (L3) 5 Normal Ankle/Foot Strength Ankle and Foot Manual Muscle Testing Right Dorsiflexion (L4) 5 Normal Plantarflexion (S1) 5 Normal Left Dorsiflexion (L4) 5 Normal Plantarflexion (S1) 5 Normal Comments PF tested seated PT-OP-Q Treatments Start: 11/29/20 17:37 Freq: Status: Active Protocol: Document 02/01/21 09:03 [facility] (Rec: 02/01/21 10:13 [facility] [id number]) Gym Equipment Sport Cord fwd walk Cord/Resistance green Reps/Duration 10x Comments in mirror focus on push off Therapeutic Exercises Standing Exercises wall posture Standing Exercise Name 90/90 HAbd Ues Side bilateral Reps/Minutes 15 Comments pillow behind head Therapeutic Activity Therapeutic Activity posture Name working on good posture & use of mirror Comments working on tspine posiiton Gait Training Gait Activity gait Comments workin prabhjot push off in perdue & mirror, cues to relax arms occ Manual Therapy Treatment Soft Tissue Mobilization QL Body Location L QL & ES Mobilization Type Sustained Pressure,Trigger Point Release Intensity/Depth Moderate Body Position S/l Comments w/ant elevaiton/post dep PT-OP-T Assessment and Plan Start: 11/29/20 17:37 Freq: Status: Active Protocol: Document 02/01/21 09:03 [facility] (Rec: 02/01/21 10:13 [facility] [id number]) Physical Therapy Assessment Goals activities Residential Goal (LTG) Pt will be able to garden as she wishes without inc pain. 01/16 does 30 min at a time to avoid inc pain LTG Duration 03/18/21 posture Solution Architect Goal (LTG) Pt will have improved posture by improvement of VCT to at least 4/5 without cuieng. 01/16-improving LTG Duration 03/18/21 strength Short Term Goal (STG) Pt will be indep w/HEP. STG Duration achieved Solution Architect Goal (LTG) Pt will have improved strength of hips to at least 4/5 in all planes and at least 3/5 in all planes for LPM to show imrpoved stability to improve pt's mechanics and ability to particiapte in typical activities without pain. 01/16-improving LTG Duration 03/18/21 balance Residential Goal (LTG) Pt will improve SLS to 10 sec B without significant lat shearing. 01/16 improving LTG Duration 03/18 standing Short Term Goal (STG) Pt will be able to stand to prep animal meals without increased pain. STG Duration achieved Solution Architect Goal (LTG) Pt will be able to stand as needed for all kitchen activties and when out in town without inc pain. 01/16- about 5 min before starts to aggrevate LTG Duration 03/18/21 Assessment Summary Assessment Pt did better with posture but required mirror for feedback taht she wasn't too bend over. REquires cueing to open up chest and get the head the back. She did well with wall posture and had improved performance w/pillow behind head Physical Therapy Plan Frequency and Duration Frequency of Treatment 2x/Week Duration of Treatment 2 months Plan of Care Start Date 01/16/21 Plan of Care End Date 03/18/21 Next Visit Focus/Plan Next Note Type Treatment Note Next Visit Plan review exercises, S/L PNF, cont to work on gait
--- NOTE | 2021-02-05 11:59 | PT.OTN ---
Current Diagnoses Other chronic pain (02/05/21) Pain in left hip (02/05/21) Low back pain (02/05/21) Dorsalgia, unspecified (02/05/21) Pain in left leg (02/05/21) Other abnormalities of gait and mobility (02/05/21) Abnormal posture (02/05/21) Weakness (02/05/21) Physical Therapy Treatment Note PT-OP-A Visit Information Start: 11/29/20 17:37 Freq: Status: Active Protocol: Document 02/05/21 10:54 [facility] (Rec: 02/05/21 11:59 [facility] [id number]) Out-Patient Physical Therapy Visit Information Visit Information Visit Type Treatment Note Visit Note 01/18 Visit Start Time 09:05 Visit Stop Time 09:45 Total Visit Minutes 40 Visit Number 14 Number of CHIEF MINISTER Visits 0 PT-OP-B Current Condition Start: 11/29/20 17:37 Freq: Status: Active Protocol: Document 12/05/20 11:25 [facility] (Rec: 12/05/20 12:10 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 She has babied back since surgeries and notes flex is worse than ext typically. Pt reports she has tingling and pain in L buttocks and standing is the worst where it will grab and tingle in buttocks L and can relieve by sititng down. Pt notes she is always hiked up on L side. Pt exercises with a net trainer on zoom w/ focus on stretches. Pt reports pain has increased over the past 6 weeks. 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 Prior Treatments and Tests Therapeutic massage-painful during, does not help, pulsed magnawave-did not help Treatment Goals Patient/Caregiver Goals Be able stand longer without pain Personal Factors Other Personal Factors That May Effect B TKAs, hysterectomy, L4-5 Therapy/Recovery fusion then repair, L TONY post approach PT-OP-C Subjective Start: 11/29/20 17:37 Freq: Status: Active Protocol: Document 02/05/21 10:54 [facility] (Rec: 02/05/21 11:59 [facility] [id number]) OP-PT Subjective Patient Comments Patient Comments Pt reports she woke up a little sore PT-OP-D Balance Start: 11/29/20 17:37 Freq: Status: Active Protocol: Document 01/16/21 09:52 [facility] (Rec: 01/16/21 12:15 [facility] [id number]) Balance Tests Single Limb Standing Single Limb- Right 9 Single Limb- Left 5 PT-OP-F Manual Assessment Start: 11/29/20 17:37 Freq: Status: Active Protocol: Document 12/05/20 11:25 [facility] (Rec: 12/05/20 12:10 [facility] [id number]) Manual Assessments Soft Tissue Assessment Soft Tissue Mobility Assessment tightness in L glute/QL Joint Mobility Assessment Joint Mobility Assessment L iliac crest higher, equal greater trochanters PT-OP-G Mobility & Gait Start: 11/29/20 17:37 Freq: Status: Active Protocol: Document 12/05/20 11:25 [facility] (Rec: 12/05/20 12:10 [facility] [id number]) OP Gait Assessment Comments Gait Comments tightness L glutes & QL PT-OP-J Posture/Palpation/Skin Start: 11/29/20 17:37 Freq: Status: Active Protocol: Document 01/16/21 09:52 [facility] (Rec: 01/16/21 12:15 [facility] [id number]) Posture Evaluation Radha Postural Classification System Vertebral Compression Test 2 Lumbar Protective Mechanism Left AP 0 Lumbar Protective Mechanism Right AP 2 Lumbar Protective Mechanism Left PA 1 Lumbar Protective Mechanism Right PA 2 PT-OP-K Range of Motion Start: 11/29/20 17:37 Freq: Status: Active Protocol: Document 12/05/20 11:25 [facility] (Rec: 12/05/20 12:10 [facility] [id number]) Lumbar Spine Range of Motion Lumbar Spine Active Degrees Flexion 54 Extension 13 Rotation Left 64 Rotation Right 58 Lateral Flexion Left 6 Lateral Flexion Right 16 Comments pain in hip coming up from flex & pain w/L SB PT-OP-L Special Tests Start: 11/29/20 17:37 Freq: Status: Active Protocol: Document 12/05/20 11:25 [facility] (Rec: 12/05/20 12:10 [facility] [id number]) Special Tests Lumbar Spine Special Tests Víctor Test Results WNL Straight Leg Raise Test Results L 68, R 64 Slump Test Results neg B PT-OP-M Strength Start: 11/29/20 17:37 Freq: Status: Active Protocol: Document 01/16/21 09:52 [facility] (Rec: 01/16/21 12:15 [facility] [id number]) Hip Strength Hip Manual Muscle Testing Right Flexion (L2) 3+ Fair+ Extension (S1) 4- Good- Abduction 4- Good- External Rotation 4 Good Internal Rotation 5 Normal Left Flexion (L2) 3+ Fair+ Extension (S1) 3+ Fair+ Abduction 4- Good- External Rotation 2+ Poor+ Internal Rotation 5 Normal Knee Strength Knee Manual Muscle Testing Right Flexion (S2) 5 Normal Extension (L3) 5 Normal Left Flexion (S2) 5 Normal Extension (L3) 5 Normal Ankle/Foot Strength Ankle and Foot Manual Muscle Testing Right Dorsiflexion (L4) 5 Normal Plantarflexion (S1) 5 Normal Left Dorsiflexion (L4) 5 Normal Plantarflexion (S1) 5 Normal Comments PF tested seated PT-OP-Q Treatments Start: 11/29/20 17:37 Freq: Status: Active Protocol: Document 02/05/21 10:54 [facility] (Rec: 02/05/21 11:59 [facility] [id number]) Gym Equipment Shuttle Balance red clips Comments fwd & side: WBOS & NBOS fwd: staggered stance B Therapeutic Ball seated Ball Size/Color 65cm Body Position Sitting Reps/Duration 15 ea Comments 1. pelvic circles B 2. bounces focus on posture 3. marching B 4. kicks B 5. hip hinge back w/PT holding pt feet Therapeutic Exercises Supine Exercises bridge Supine Exercise Name working to do alt march w/ traction Reps/Minutes 8 B Prone Exercises ext Prone Exercise Name TKE w/toe lift for ext hold x5 sec Side bilateral Reps/Minutes 8 Neuro Re-Education Treatment Other Activities pnf Details post dep L Comments sustained hold in pelvis progressed to w/LE pattern PT-OP-T Assessment and Plan Start: 11/29/20 17:37 Freq: Status: Active Protocol: Document 02/05/21 10:54 [facility] (Rec: 02/05/21 11:59 [facility] [id number]) Physical Therapy Assessment Goals activities Office Manager Receptionist Goal (LTG) Pt will be able to garden as she wishes without inc pain. 01/16 does 30 min at a time to avoid inc pain LTG Duration 03/18/21 posture Shelter Goal (LTG) Pt will have improved posture by improvement of VCT to at least 4/5 without cuieng. 01/16-improving LTG Duration 03/18/21 strength Short Term Goal (STG) Pt will be indep w/HEP. STG Duration achieved Shelter Goal (LTG) Pt will have improved strength of hips to at least 4/5 in all planes and at least 3/5 in all planes for LPM to show imrpoved stability to improve pt's mechanics and ability to particiapte in typical activities without pain. 01/16-improving LTG Duration 03/18/21 balance Office Manager Receptionist Goal (LTG) Pt will improve SLS to 10 sec B without significant lat shearing. 01/16 improving LTG Duration 03/18 standing Short Term Goal (STG) Pt will be able to stand to prep animal meals without increased pain. STG Duration achieved Office Manager Receptionist Goal (LTG) Pt will be able to stand as needed for all kitchen activties and when out in town without inc pain. 01/16- about 5 min before starts to aggrevate LTG Duration 03/18/21 Assessment Summary Assessment pt was shekhar to get good glute activation w/TKE to hip ext hold today but difficultyw ith other exercises as she uses HS a lot. She requierd signifciant cues for posture on balance board & ball today Physical Therapy Plan Frequency and Duration Frequency of Treatment 2x/Week Duration of Treatment 2 months Plan of Care Start Date 01/16/21 Plan of Care End Date 03/18/21 Next Visit Focus/Plan Next Note Type Treatment Note Next Visit Plan s/l PNF, cont to work on standing motion
--- NOTE | 2021-02-08 09:48 | PT.OTN ---
Current Diagnoses Other chronic pain (02/08/21) Pain in left hip (02/08/21) Low back pain (02/08/21) Dorsalgia, unspecified (02/08/21) Pain in left leg (02/08/21) Other abnormalities of gait and mobility (02/08/21) Abnormal posture (02/08/21) Weakness (02/08/21) Physical Therapy Treatment Note PT-OP-A Visit Information Start: 11/29/20 17:37 Freq: Status: Active Protocol: Document 02/08/21 09:03 [facility] (Rec: 02/08/21 09:48 [facility] [id number]) Out-Patient Physical Therapy Visit Information Visit Information Visit Type Treatment Note Visit Note 02/17 Visit Start Time 09:04 Visit Stop Time 09:44 Total Visit Minutes 40 Visit Number 15 Number of INFORMATION SYSTEMS SPECIALIST Visits 0 PT-OP-B Current Condition Start: 11/29/20 17:37 Freq: Status: Active Protocol: Document 12/05/20 11:25 [facility] (Rec: 12/05/20 12:10 [facility] [id number]) Current Condition History of Current Condition Onset Date 6 weeks ago Current Complaints L glute/SI pain History of Current Condition Pt has had chornic back pain with hx of L4-5 fusion in 2004 then repair again in 2009 w/ L3-4 then 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 She has babied back since surgeries and notes flex is worse than ext typically. Pt reports she has tingling and pain in L buttocks and standing is the worst where it will grab and tingle in buttocks L and can relieve by sititng down. Pt notes she is always hiked up on L side. Pt exercises with a animal trainer on zoom w/ focus on stretches. Pt reports pain has increased over the past 6 weeks. 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 Prior Treatments and Tests Therapeutic massage-painful during, does not help, pulsed magnawave-did not help Treatment Goals Patient/Caregiver Goals Be able stand longer without pain Personal Factors Other Personal Factors That May Effect B TKAs, hysterectomy, L4-5 Therapy/Recovery fusion then repair, L TONY post approach PT-OP-C Subjective Start: 11/29/20 17:37 Freq: Status: Active Protocol: Document 02/08/21 09:03 [facility] (Rec: 02/08/21 09:48 [facility] [id number]) OP-PT Subjective Patient Comments Patient Comments pt rpoerts doing weeding and feeling better with it tahn has in the past. Patient Reported Progress Improving PT-OP-D Balance Start: 11/29/20 17:37 Freq: Status: Active Protocol: Document 01/16/21 09:52 [facility] (Rec: 01/16/21 12:15 [facility] [id number]) Balance Tests Single Limb Standing Single Limb- Right 9 Single Limb- Left 5 PT-OP-F Manual Assessment Start: 11/29/20 17:37 Freq: Status: Active Protocol: Document 12/05/20 11:25 [facility] (Rec: 12/05/20 12:10 [facility] [id number]) Manual Assessments Soft Tissue Assessment Soft Tissue Mobility Assessment tightness in L glute/QL Joint Mobility Assessment Joint Mobility Assessment L iliac crest higher, equal greater trochanters PT-OP-G Mobility & Gait Start: 11/29/20 17:37 Freq: Status: Active Protocol: Document 12/05/20 11:25 [facility] (Rec: 12/05/20 12:10 [facility] [id number]) OP Gait Assessment Comments Gait Comments tightness L glutes & QL PT-OP-J Posture/Palpation/Skin Start: 11/29/20 17:37 Freq: Status: Active Protocol: Document 01/16/21 09:52 [facility] (Rec: 01/16/21 12:15 [facility] [id number]) Posture Evaluation Radha Postural Classification System Vertebral Compression Test 2 Lumbar Protective Mechanism Left AP 0 Lumbar Protective Mechanism Right AP 2 Lumbar Protective Mechanism Left PA 1 Lumbar Protective Mechanism Right PA 2 PT-OP-K Range of Motion Start: 11/29/20 17:37 Freq: Status: Active Protocol: Document 12/05/20 11:25 [facility] (Rec: 12/05/20 12:10 [facility] [id number]) Lumbar Spine Range of Motion Lumbar Spine Active Degrees Flexion 54 Extension 13 Rotation Left 64 Rotation Right 58 Lateral Flexion Left 6 Lateral Flexion Right 16 Comments pain in hip coming up from flex & pain w/L SB PT-OP-L Special Tests Start: 11/29/20 17:37 Freq: Status: Active Protocol: Document 12/05/20 11:25 [facility] (Rec: 12/05/20 12:10 [facility] [id number]) Special Tests Lumbar Spine Special Tests Víctor Test Results WNL Straight Leg Raise Test Results L 68, R 64 Slump Test Results neg B PT-OP-M Strength Start: 11/29/20 17:37 Freq: Status: Active Protocol: Document 01/16/21 09:52 [facility] (Rec: 01/16/21 12:15 [facility] [id number]) Hip Strength Hip Manual Muscle Testing Right Flexion (L2) 3+ Fair+ Extension (S1) 4- Good- Abduction 4- Good- External Rotation 4 Good Internal Rotation 5 Normal Left Flexion (L2) 3+ Fair+ Extension (S1) 3+ Fair+ Abduction 4- Good- External Rotation 2+ Poor+ Internal Rotation 5 Normal Knee Strength Knee Manual Muscle Testing Right Flexion (S2) 5 Normal Extension (L3) 5 Normal Left Flexion (S2) 5 Normal Extension (L3) 5 Normal Ankle/Foot Strength Ankle and Foot Manual Muscle Testing Right Dorsiflexion (L4) 5 Normal Plantarflexion (S1) 5 Normal Left Dorsiflexion (L4) 5 Normal Plantarflexion (S1) 5 Normal Comments PF tested seated PT-OP-Q Treatments Start: 11/29/20 17:37 Freq: Status: Active Protocol: Document 02/08/21 09:03 [facility] (Rec: 02/08/21 09:48 [facility] [id number]) Gym Equipment Shuttle Balance red clips Details head turns fwd WBOS & NBOS Comments fwd & side: WBOS & NBOS fwd: staggered stance B Therapeutic Ball seated Ball Size/Color 65cm Body Position Sitting Reps/Duration 15 ea Comments 1. pelvic circles B 2. bounces focus on posture 3. marching B 4. kicks B 5. hip hinge back w/PT holding pt feet Therapeutic Exercises Prone Exercises ext Prone Exercise Name TKE w/toe lift for ext hold x5 sec Side left Reps/Minutes 8 Standing Exercises step up Standing Exercise Name 6 in then 8in step Side left Reps/Minutes 12 ea Comments focus on wt shift & glute Manual Therapy Treatment Soft Tissue Mobilization Hip Body Location along sacral border Mobilization Type Myofascial Release,Rolling, Sustained Pressure Intensity/Depth Moderate Body Position Prone Comments w/hip ER/IR PT-OP-T Assessment and Plan Start: 11/29/20 17:37 Freq: Status: Active Protocol: Document 02/08/21 09:03 [facility] (Rec: 02/08/21 09:48 [facility] [id number]) Physical Therapy Assessment Goals activities Puddler Helper Goal (LTG) Pt will be able to garden as she wishes without inc pain. 01/16 does 30 min at a time to avoid inc pain LTG Duration 03/18/21 posture Puddler Helper Goal (LTG) Pt will have improved posture by improvement of VCT to at least 4/5 without cuieng. 01/16-improving LTG Duration 03/18/21 strength Short Term Goal (STG) Pt will be indep w/HEP. STG Duration achieved Puddler Helper Goal (LTG) Pt will have improved strength of hips to at least 4/5 in all planes and at least 3/5 in all planes for LPM to show imrpoved stability to improve pt's mechanics and ability to particiapte in typical activities without pain. 01/16-improving LTG Duration 03/18/21 balance Puddler Helper Goal (LTG) Pt will improve SLS to 10 sec B without significant lat shearing. 01/16 improving LTG Duration 03/18 standing Short Term Goal (STG) Pt will be able to stand to prep animal meals without increased pain. STG Duration achieved Puddler Helper Goal (LTG) Pt will be able to stand as needed for all kitchen activties and when out in town without inc pain. 01/16- about 5 min before starts to aggrevate LTG Duration 03/18/21 Assessment Summary Assessment Improved glute activiation w/ exercises today and was able to improve ease w/step up onto 8 in step after working on mechanics duirng lower step up activity. Improving overall balance Physical Therapy Plan Frequency and Duration Frequency of Treatment 2x/Week Duration of Treatment 2 months Plan of Care Start Date 01/16/21 Plan of Care End Date 03/18/21 Next Visit Focus/Plan Next Note Type Treatment Note Next Visit Plan s/l PNF, cont to work on standing motion
--- NOTE | 2021-02-14 18:27 | PT.OTN ---
Current Diagnoses Other chronic pain (02/14/21) Pain in left hip (02/14/21) Low back pain (02/14/21) Dorsalgia, unspecified (02/14/21) Pain in left leg (02/14/21) Other abnormalities of gait and mobility (02/14/21) Abnormal posture (02/14/21) Weakness (02/14/21) Physical Therapy Treatment Note PT-OP-A Visit Information Start: 11/29/20 17:37 Freq: Status: Active Protocol: Document 02/14/21 16:09 [facility] (Rec: 02/14/21 18:27 [facility] [id number]) Out-Patient Physical Therapy Visit Information Visit Information Visit Type Treatment Note Visit Note 03/20 Visit Start Time 16:06 Visit Stop Time 16:45 Total Visit Minutes 39 Visit Number 16 Number of CONSTRUCTION ELECTRICIAN Visits 0 PT-OP-B Current Condition Start: 11/29/20 17:37 Freq: Status: Active Protocol: Document 12/05/20 11:25 [facility] (Rec: 12/05/20 12:10 [facility] [id number]) Current Condition History of Current Condition Onset Date 6 weeks ago Current Complaints L glute/SI pain History of Current Condition Pt has had chornic back pain with hx of L4-5 fusion in 2004 then repair again in 2009 w/ L3-4 then 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 She has babied back since surgeries and notes flex is worse than ext typically. Pt reports she has tingling and pain in L buttocks and standing is the worst where it will grab and tingle in buttocks L and can relieve by sititng down. Pt notes she is always hiked up on L side. Pt exercises with a education trainer on zoom w/ focus on stretches. Pt reports pain has increased over the past 6 weeks. 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 Prior Treatments and Tests Therapeutic massage-painful during, does not help, pulsed magnawave-did not help Treatment Goals Patient/Caregiver Goals Be able stand longer without pain Personal Factors Other Personal Factors That May Effect B TKAs, hysterectomy, L4-5 Therapy/Recovery fusion then repair, L TONY post approach PT-OP-C Subjective Start: 11/29/20 17:37 Freq: Status: Active Protocol: Document 02/14/21 16:09 [facility] (Rec: 02/14/21 18:27 [facility] [id number]) OP-PT Subjective Patient Comments Patient Comments Pt reprots has mostly has tightness recently not as much pain. She had to do a lot of quick cleaning d/t last min visit from [facility] and was painful for about 30 min. Patient Reported Progress Improving PT-OP-D Balance Start: 11/29/20 17:37 Freq: Status: Active Protocol: Document 01/16/21 09:52 [facility] (Rec: 01/16/21 12:15 [facility] [id number]) Balance Tests Single Limb Standing Single Limb- Right 9 Single Limb- Left 5 PT-OP-F Manual Assessment Start: 11/29/20 17:37 Freq: Status: Active Protocol: Document 12/05/20 11:25 [facility] (Rec: 12/05/20 12:10 [facility] [id number]) Manual Assessments Soft Tissue Assessment Soft Tissue Mobility Assessment tightness in L glute/QL Joint Mobility Assessment Joint Mobility Assessment L iliac crest higher, equal greater trochanters PT-OP-G Mobility & Gait Start: 11/29/20 17:37 Freq: Status: Active Protocol: Document 12/05/20 11:25 [facility] (Rec: 12/05/20 12:10 [facility] [id number]) OP Gait Assessment Comments Gait Comments tightness L glutes & QL PT-OP-J Posture/Palpation/Skin Start: 11/29/20 17:37 Freq: Status: Active Protocol: Document 01/16/21 09:52 [facility] (Rec: 01/16/21 12:15 [facility] [id number]) Posture Evaluation Radha Postural Classification System Vertebral Compression Test 2 Lumbar Protective Mechanism Left AP 0 Lumbar Protective Mechanism Right AP 2 Lumbar Protective Mechanism Left PA 1 Lumbar Protective Mechanism Right PA 2 PT-OP-K Range of Motion Start: 11/29/20 17:37 Freq: Status: Active Protocol: Document 12/05/20 11:25 [facility] (Rec: 12/05/20 12:10 [facility] [id number]) Lumbar Spine Range of Motion Lumbar Spine Active Degrees Flexion 54 Extension 13 Rotation Left 64 Rotation Right 58 Lateral Flexion Left 6 Lateral Flexion Right 16 Comments pain in hip coming up from flex & pain w/L SB PT-OP-L Special Tests Start: 11/29/20 17:37 Freq: Status: Active Protocol: Document 12/05/20 11:25 [facility] (Rec: 12/05/20 12:10 [facility] [id number]) Special Tests Lumbar Spine Special Tests Víctor Test Results WNL Straight Leg Raise Test Results L 68, R 64 Slump Test Results neg B PT-OP-M Strength Start: 11/29/20 17:37 Freq: Status: Active Protocol: Document 01/16/21 09:52 [facility] (Rec: 01/16/21 12:15 [facility] [id number]) Hip Strength Hip Manual Muscle Testing Right Flexion (L2) 3+ Fair+ Extension (S1) 4- Good- Abduction 4- Good- External Rotation 4 Good Internal Rotation 5 Normal Left Flexion (L2) 3+ Fair+ Extension (S1) 3+ Fair+ Abduction 4- Good- External Rotation 2+ Poor+ Internal Rotation 5 Normal Knee Strength Knee Manual Muscle Testing Right Flexion (S2) 5 Normal Extension (L3) 5 Normal Left Flexion (S2) 5 Normal Extension (L3) 5 Normal Ankle/Foot Strength Ankle and Foot Manual Muscle Testing Right Dorsiflexion (L4) 5 Normal Plantarflexion (S1) 5 Normal Left Dorsiflexion (L4) 5 Normal Plantarflexion (S1) 5 Normal Comments PF tested seated PT-OP-Q Treatments Start: 11/29/20 17:37 Freq: Status: Active Protocol: Document 02/14/21 16:09 [facility] (Rec: 02/14/21 18:27 [facility] [id number]) Gym Equipment Therapeutic Ball supine Ball Size/Color 55cm Body Position Supine Reps/Duration 3sec x15 Therapeutic Exercises Prone Exercises ext Prone Exercise Name TKE w/toe lift for ext hold x5 sec Side left Reps/Minutes 20 Comments max cues Standing Exercises hip hikes Standing Exercise Name in mirror Side bilateral Equipment Used counter Reps/Minutes 10x2 Gait Training Gait Activity gait Comments 1. wt shifts into BLEs w/focus on wt acceptance 2, SLS to worko n wt acceptance Neuro Re-Education Treatment Other Activities pnf Details post dep L Comments 1. sustained hold in pelvis progressed to w/LE pattern 2. rhythmic initiation PT-OP-T Assessment and Plan Start: 11/29/20 17:37 Freq: Status: Active Protocol: Document 02/14/21 16:09 [facility] (Rec: 02/14/21 18:27 [facility] [id number]) Physical Therapy Assessment Goals activities Halfway Goal (LTG) Pt will be able to garden as she wishes without inc pain. 01/16 does 30 min at a time to avoid inc pain LTG Duration 03/18/21 posture Practice Advisor Goal (LTG) Pt will have improved posture by improvement of VCT to at least 4/5 without cuieng. 01/16-improving LTG Duration 03/18/21 strength Short Term Goal (STG) Pt will be indep w/HEP. STG Duration achieved Halfway Goal (LTG) Pt will have improved strength of hips to at least 4/5 in all planes and at least 3/5 in all planes for LPM to show imrpoved stability to improve pt's mechanics and ability to particiapte in typical activities without pain. 01/16-improving LTG Duration 03/18/21 balance Practice Advisor Goal (LTG) Pt will improve SLS to 10 sec B without significant lat shearing. 01/16 improving LTG Duration 03/18 standing Short Term Goal (STG) Pt will be able to stand to prep animal meals without increased pain. STG Duration achieved Practice Advisor Goal (LTG) Pt will be able to stand as needed for all kitchen activties and when out in town without inc pain. 01/16- about 5 min before starts to aggrevate LTG Duration 03/18/21 Assessment Summary Assessment Pt cont to improve with glute activation with training exercises today. significantly improved wt accpetance after PNF in [place] Physical Therapy Plan Frequency and Duration Frequency of Treatment 2x/Week Duration of Treatment 2 months Plan of Care Start Date 01/16/21 Plan of Care End Date 03/18/21 Next Visit Focus/Plan Next Note Type Treatment Note Next Visit Plan cont to work on glute activation. cont to work on SLS w/o lat shear
--- NOTE | 2021-02-21 18:27 | PT.OTN ---
Current Diagnoses Other chronic pain (02/21/21) Pain in left hip (02/21/21) Low back pain (02/21/21) Dorsalgia, unspecified (02/21/21) Pain in left leg (02/21/21) Other abnormalities of gait and mobility (02/21/21) Abnormal posture (02/21/21) Weakness (02/21/21) Physical Therapy Treatment Note PT-OP-A Visit Information Start: 11/29/20 17:37 Freq: Status: Active Protocol: Document 02/21/21 18:20 [facility] (Rec: 02/21/21 18:27 [facility] [id number]) Out-Patient Physical Therapy Visit Information Visit Information Visit Type Treatment Note Visit Note 04/20 Visit Start Time 16:03 Visit Stop Time 16:45 Total Visit Minutes 42 Visit Number 17 Number of AIRFIELD DEFENCE GUARD Visits 0 PT-OP-B Current Condition Start: 11/29/20 17:37 Freq: Status: Active Protocol: Document 12/05/20 11:25 [facility] (Rec: 12/05/20 12:10 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 She has babied back since surgeries and notes flex is worse than ext typically. Pt reports she has tingling and pain in L buttocks and standing is the worst where it will grab and tingle in buttocks L and can relieve by sititng down. Pt notes she is always hiked up on L side. Pt exercises with a quality review trainer on zoom w/ focus on stretches. Pt reports pain has increased over the past 6 weeks. 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 Prior Treatments and Tests Therapeutic massage-painful during, does not help, pulsed magnawave-did not help Treatment Goals Patient/Caregiver Goals Be able stand longer without pain Personal Factors Other Personal Factors That May Effect B TKAs, hysterectomy, L4-5 Therapy/Recovery fusion then repair, L TONY post approach PT-OP-C Subjective Start: 11/29/20 17:37 Freq: Status: Active Protocol: Document 02/21/21 18:20 [facility] (Rec: 02/21/21 18:27 [facility] [id number]) OP-PT Subjective Patient Comments Patient Comments Pt reports was doing well last week but then had a massage Fri and was sore until friday. Still a little sore in her back. Notes she has difficulty carrying things PT-OP-D Balance Start: 11/29/20 17:37 Freq: Status: Active Protocol: Document 01/16/21 09:52 [facility] (Rec: 01/16/21 12:15 [facility] [id number]) Balance Tests Single Limb Standing Single Limb- Right 9 Single Limb- Left 5 PT-OP-F Manual Assessment Start: 11/29/20 17:37 Freq: Status: Active Protocol: Document 12/05/20 11:25 [facility] (Rec: 12/05/20 12:10 [facility] [id number]) Manual Assessments Soft Tissue Assessment Soft Tissue Mobility Assessment tightness in L glute/QL Joint Mobility Assessment Joint Mobility Assessment L iliac crest higher, equal greater trochanters PT-OP-G Mobility & Gait Start: 11/29/20 17:37 Freq: Status: Active Protocol: Document 12/05/20 11:25 [facility] (Rec: 12/05/20 12:10 [facility] [id number]) OP Gait Assessment Comments Gait Comments tightness L glutes & QL PT-OP-J Posture/Palpation/Skin Start: 11/29/20 17:37 Freq: Status: Active Protocol: Document 01/16/21 09:52 [facility] (Rec: 01/16/21 12:15 [facility] [id number]) Posture Evaluation Radha Postural Classification System Vertebral Compression Test 2 Lumbar Protective Mechanism Left AP 0 Lumbar Protective Mechanism Right AP 2 Lumbar Protective Mechanism Left PA 1 Lumbar Protective Mechanism Right PA 2 PT-OP-K Range of Motion Start: 11/29/20 17:37 Freq: Status: Active Protocol: Document 12/05/20 11:25 [facility] (Rec: 12/05/20 12:10 [facility] [id number]) Lumbar Spine Range of Motion Lumbar Spine Active Degrees Flexion 54 Extension 13 Rotation Left 64 Rotation Right 58 Lateral Flexion Left 6 Lateral Flexion Right 16 Comments pain in hip coming up from flex & pain w/L SB PT-OP-L Special Tests Start: 11/29/20 17:37 Freq: Status: Active Protocol: Document 12/05/20 11:25 [facility] (Rec: 12/05/20 12:10 [facility] [id number]) Special Tests Lumbar Spine Special Tests Víctor Test Results WNL Straight Leg Raise Test Results L 68, R 64 Slump Test Results neg B PT-OP-M Strength Start: 11/29/20 17:37 Freq: Status: Active Protocol: Document 01/16/21 09:52 [facility] (Rec: 01/16/21 12:15 [facility] [id number]) Hip Strength Hip Manual Muscle Testing Right Flexion (L2) 3+ Fair+ Extension (S1) 4- Good- Abduction 4- Good- External Rotation 4 Good Internal Rotation 5 Normal Left Flexion (L2) 3+ Fair+ Extension (S1) 3+ Fair+ Abduction 4- Good- External Rotation 2+ Poor+ Internal Rotation 5 Normal Knee Strength Knee Manual Muscle Testing Right Flexion (S2) 5 Normal Extension (L3) 5 Normal Left Flexion (S2) 5 Normal Extension (L3) 5 Normal Ankle/Foot Strength Ankle and Foot Manual Muscle Testing Right Dorsiflexion (L4) 5 Normal Plantarflexion (S1) 5 Normal Left Dorsiflexion (L4) 5 Normal Plantarflexion (S1) 5 Normal Comments PF tested seated PT-OP-Q Treatments Start: 11/29/20 17:37 Freq: Status: Active Protocol: Document 02/21/21 18:20 [facility] (Rec: 02/21/21 18:27 [facility] [id number]) Therapeutic Activity Therapeutic Activity lifting Comments 1. worked on bending over to brass pickler objects w/fofcus on neutral spine 2. worked on holding objects w /netural spine Manual Therapy Treatment Soft Tissue Mobilization QL Body Location L QL & ES & lat sup to iliac crest Mobilization Type Sustained Pressure,Trigger Point Release Intensity/Depth Moderate Body Position S/l Comments w/ant elevaiton/post dep Neuro Re-Education Treatment Other Activities core facilitation Details prolonged holds & use of chop pattern Reps/Duration L Comments facilitation through flex, add , ER, DF, iver pattern pnf Details ant elevation L Comments 1. sustained hold in pelvis progressed to w/LE pattern 2. rhythmic initiation PT-OP-T Assessment and Plan Start: 11/29/20 17:37 Freq: Status: Active Protocol: Document 02/21/21 18:20 [facility] (Rec: 02/21/21 18:27 [facility] [id number]) Physical Therapy Assessment Goals activities Limnologist Goal (LTG) Pt will be able to garden as she wishes without inc pain. 01/16 does 30 min at a time to avoid inc pain LTG Duration 03/18/21 posture Halfway Goal (LTG) Pt will have improved posture by improvement of VCT to at least 4/5 without cuieng. 01/16-improving LTG Duration 03/18/21 strength Short Term Goal (STG) Pt will be indep w/HEP. STG Duration achieved Limnologist Goal (LTG) Pt will have improved strength of hips to at least 4/5 in all planes and at least 3/5 in all planes for LPM to show imrpoved stability to improve pt's mechanics and ability to particiapte in typical activities without pain. 01/16-improving LTG Duration 03/18/21 balance Halfway Goal (LTG) Pt will improve SLS to 10 sec B without significant lat shearing. 01/16 improving LTG Duration 03/18 standing Short Term Goal (STG) Pt will be able to stand to prep animal meals without increased pain. STG Duration achieved Halfway Goal (LTG) Pt will be able to stand as needed for all kitchen activties and when out in town without inc pain. 01/16- about 5 min before starts to aggrevate LTG Duration 03/18/21 Assessment Summary Assessment Pt initially had pain holding a light object in front of her but that improved after mnaual therapyand neuro re-edu where she showed improved automatic core engagement w/ facilitation through LLE. Physical Therapy Plan Frequency and Duration Frequency of Treatment 2x/Week Duration of Treatment 2 months Plan of Care Start Date 01/16/21 Plan of Care End Date 03/18/21 Next Visit Focus/Plan Next Note Type Progress Note Next Visit Plan cont to work on glute activation. cont to work on SLS w/o lat shear
--- NOTE | 2021-02-28 17:25 | PT.OTN ---
Current Diagnoses Other chronic pain (02/28/21) Pain in left hip (02/28/21) Low back pain (02/28/21) Dorsalgia, unspecified (02/28/21) Pain in left leg (02/28/21) Other abnormalities of gait and mobility (02/28/21) Abnormal posture (02/28/21) Weakness (02/28/21) Physical Therapy Treatment Note PT-OP-A Visit Information Start: 11/29/20 17:37 Freq: Status: Active Protocol: Document 02/28/21 13:49 [facility] (Rec: 02/28/21 17:25 [facility] [id number]) Out-Patient Physical Therapy Visit Information Visit Information Visit Type Progress Note Visit Note 08/20 Visit Start Time 13:48 Visit Stop Time 14:30 Total Visit Minutes 42 Visit Number 18 Number of MAINTENANCE TECHNICIAN Visits 0 PT-OP-B Current Condition Start: 11/29/20 17:37 Freq: Status: Active Protocol: Document 12/05/20 11:25 [facility] (Rec: 12/05/20 12:10 [facility] [id number]) Current Condition History of Current Condition Onset Date 6 weeks ago Current Complaints L glute/SI pain History of Current Condition Pt has had chornic back pain with hx of L4-5 fusion in 2004 then repair again in 2009 w/ L3-4 then 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 She has babied back since surgeries and notes flex is worse than ext typically. Pt reports she has tingling and pain in L buttocks and standing is the worst where it will grab and tingle in buttocks L and can relieve by sititng down. Pt notes she is always hiked up on L side. Pt exercises with a ultimate hoops trainer on zoom w/ focus on stretches. Pt reports pain has increased over the past 6 weeks. 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 Prior Treatments and Tests Therapeutic massage-painful during, does not help, pulsed magnawave-did not help Treatment Goals Patient/Caregiver Goals Be able stand longer without pain Personal Factors Other Personal Factors That May Effect B TKAs, hysterectomy, L4-5 Therapy/Recovery fusion then repair, L TONY post approach PT-OP-C Subjective Start: 11/29/20 17:37 Freq: Status: Active Protocol: Document 02/28/21 13:49 [facility] (Rec: 02/28/21 17:25 [facility] [id number]) OP-PT Subjective Patient Comments Patient Comments Pt wants to review exercises PT-OP-D Balance Start: 11/29/20 17:37 Freq: Status: Active Protocol: Document 01/16/21 09:52 [facility] (Rec: 01/16/21 12:15 [facility] [id number]) Balance Tests Single Limb Standing Single Limb- Right 9 Single Limb- Left 5 PT-OP-F Manual Assessment Start: 11/29/20 17:37 Freq: Status: Active Protocol: Document 12/05/20 11:25 [facility] (Rec: 12/05/20 12:10 [facility] [id number]) Manual Assessments Soft Tissue Assessment Soft Tissue Mobility Assessment tightness in L glute/QL Joint Mobility Assessment Joint Mobility Assessment L iliac crest higher, equal greater trochanters PT-OP-G Mobility & Gait Start: 11/29/20 17:37 Freq: Status: Active Protocol: Document 12/05/20 11:25 [facility] (Rec: 12/05/20 12:10 [facility] [id number]) OP Gait Assessment Comments Gait Comments tightness L glutes & QL PT-OP-J Posture/Palpation/Skin Start: 11/29/20 17:37 Freq: Status: Active Protocol: Document 01/16/21 09:52 [facility] (Rec: 01/16/21 12:15 [facility] [id number]) Posture Evaluation Radha Postural Classification System Vertebral Compression Test 2 Lumbar Protective Mechanism Left AP 0 Lumbar Protective Mechanism Right AP 2 Lumbar Protective Mechanism Left PA 1 Lumbar Protective Mechanism Right PA 2 PT-OP-K Range of Motion Start: 11/29/20 17:37 Freq: Status: Active Protocol: Document 12/05/20 11:25 [facility] (Rec: 12/05/20 12:10 [facility] [id number]) Lumbar Spine Range of Motion Lumbar Spine Active Degrees Flexion 54 Extension 13 Rotation Left 64 Rotation Right 58 Lateral Flexion Left 6 Lateral Flexion Right 16 Comments pain in hip coming up from flex & pain w/L SB PT-OP-L Special Tests Start: 11/29/20 17:37 Freq: Status: Active Protocol: Document 12/05/20 11:25 [facility] (Rec: 12/05/20 12:10 [facility] [id number]) Special Tests Lumbar Spine Special Tests Víctor Test Results WNL Straight Leg Raise Test Results L 68, R 64 Slump Test Results neg B PT-OP-M Strength Start: 11/29/20 17:37 Freq: Status: Active Protocol: Document 01/16/21 09:52 [facility] (Rec: 01/16/21 12:15 [facility] [id number]) Hip Strength Hip Manual Muscle Testing Right Flexion (L2) 3+ Fair+ Extension (S1) 4- Good- Abduction 4- Good- External Rotation 4 Good Internal Rotation 5 Normal Left Flexion (L2) 3+ Fair+ Extension (S1) 3+ Fair+ Abduction 4- Good- External Rotation 2+ Poor+ Internal Rotation 5 Normal Knee Strength Knee Manual Muscle Testing Right Flexion (S2) 5 Normal Extension (L3) 5 Normal Left Flexion (S2) 5 Normal Extension (L3) 5 Normal Ankle/Foot Strength Ankle and Foot Manual Muscle Testing Right Dorsiflexion (L4) 5 Normal Plantarflexion (S1) 5 Normal Left Dorsiflexion (L4) 5 Normal Plantarflexion (S1) 5 Normal Comments PF tested seated PT-OP-Q Treatments Start: 11/29/20 17:37 Freq: Status: Active Protocol: Document 02/28/21 13:49 [facility] (Rec: 02/28/21 17:25 [facility] [id number]) Therapeutic Exercises Supine Exercises bridge Supine Exercise Name working to do alt october Reps/Minutes 8 B LTR Supine Exercise Name Lower trunk rotation Side bilateral Reps/Minutes 8 ea Comments focus on core Piriformis Stretch Side bilateral Reps/Minutes 30 sec ea Prone Exercises ext Prone Exercise Name TKE w/toe lift for ext hold x5 sec Side left Reps/Minutes 10 Comments max cues Standing Exercises SLS Standing Exercise Name in mirror working on wt acceptance Side bilateral wall posture Standing Exercise Name 90/90 HAbd Ues Side bilateral Reps/Minutes 15 Comments pillow behind head hip hikes Standing Exercise Name in mirror Side bilateral Equipment Used counter Reps/Minutes 12 Squats Side bilateral Reps/Minutes 20 Comments over plinth Manual Therapy Treatment Soft Tissue Mobilization Hip Body Location along sacral border L Mobilization Type Myofascial Release,Rolling, Sustained Pressure Intensity/Depth Moderate Body Position Prone Comments w/hip ER/IR Self-Care/Home Management Treatment Education Other Education review of HEP and written cues together PT-OP-T Assessment and Plan Start: 11/29/20 17:37 Freq: Status: Active Protocol: Document 02/28/21 13:49 [facility] (Rec: 02/28/21 17:25 [facility] [id number]) Physical Therapy Assessment Goals activities [employer] Protection Maintainer Goal (LTG) Pt will be able to garden as she wishes without inc pain. 01/16 does 30 min at a time to avoid inc pain LTG Duration 03/18/21 posture Residential Goal (LTG) Pt will have improved posture by improvement of VCT to at least 4/5 without cuieng. 01/16-improving LTG Duration 03/18/21 strength Short Term Goal (STG) Pt will be indep w/HEP. STG Duration achieved Residential Goal (LTG) Pt will have improved strength of hips to at least 4/5 in all planes and at least 3/5 in all planes for LPM to show imrpoved stability to improve pt's mechanics and ability to particiapte in typical activities without pain. 01/16-improving LTG Duration 03/18/21 balance Residential Goal (LTG) Pt will improve SLS to 10 sec B without significant lat shearing. 01/16 improving 02/28-improving does well on R, L a few sec LTG Duration 03/18 standing Short Term Goal (STG) Pt will be able to stand to prep animal meals without increased pain. STG Duration achieved Residential Goal (LTG) Pt will be able to stand as needed for all kitchen activties and when out in town without inc pain. 01/16- about 5 min before starts to aggrevate LTG Duration achieved 02/28 Assessment Summary Assessment Pt is improvign functionally w /PT and is noting less pain and more functional ability. Plan is to do one more session to solidify HEP and pt indepence w/movememnt strategies. Balance is improving and time able to stand cont to imrpvoe Physical Therapy Plan Frequency and Duration Frequency of Treatment 2x/Week Duration of Treatment 2 months Plan of Care Start Date 01/16/21 Plan of Care End Date 03/18/21 Next Visit Focus/Plan Next Note Type Treatment Note Next Visit Plan cont to work on glute activation. cont to work on SLS w/o lat shear
--- NOTE | 2021-03-22 16:06 | PT.OTN ---
Current Diagnoses Other chronic pain (03/22/21) Pain in left hip (03/22/21) Low back pain (03/22/21) Dorsalgia, unspecified (03/22/21) Pain in left leg (03/22/21) Other abnormalities of gait and mobility (03/22/21) Abnormal posture (03/22/21) Weakness (03/22/21) Physical Therapy Treatment Note PT-OP-A Visit Information Start: 11/29/20 17:37 Freq: Status: Active Protocol: Document 03/22/21 15:09 [facility] (Rec: 03/22/21 16:05 [facility] [id number]) Out-Patient Physical Therapy Visit Information Visit Information Visit Type Progress Note Visit Note 08/20 Visit Start Time 15:15 Visit Stop Time 16:00 Total Visit Minutes 45 Visit Number 19 Number of OPENING MACHINE CLEANER Visits 0 PT-OP-B Current Condition Start: 11/29/20 17:37 Freq: Status: Active Protocol: Document 12/05/20 11:25 [facility] (Rec: 12/05/20 12:10 [facility] [id number]) Current Condition History of Current Condition Onset Date 6 weeks ago Current Complaints L glute/SI pain History of Current Condition Pt has had chornic back pain with hx of L4-5 fusion in 2004 then repair again in 2009 w/ L3-4 then 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 She has babied back since surgeries and notes flex is worse than ext typically. Pt reports she has tingling and pain in L buttocks and standing is the worst where it will grab and tingle in buttocks L and can relieve by sititng down. Pt notes she is always hiked up on L side. Pt exercises with a strainer tender on zoom w/ focus on stretches. Pt reports pain has increased over the past 6 weeks. 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 Prior Treatments and Tests Therapeutic massage-painful during, does not help, pulsed magnawave-did not help Treatment Goals Patient/Caregiver Goals Be able stand longer without pain Personal Factors Other Personal Factors That May Effect B TKAs, hysterectomy, L4-5 Therapy/Recovery fusion then repair, L TONY post approach PT-OP-C Subjective Start: 11/29/20 17:37 Freq: Status: Active Protocol: Document 03/22/21 15:09 [facility] (Rec: 03/22/21 16:05 [facility] [id number]) OP-PT Subjective Patient Comments Patient Comments pt reports being concerned about what nurse read in MRI to her but not understandign words PT-OP-D Balance Start: 11/29/20 17:37 Freq: Status: Active Protocol: Document 01/16/21 09:52 [facility] (Rec: 01/16/21 12:15 [facility] [id number]) Balance Tests Single Limb Standing Single Limb- Right 9 Single Limb- Left 5 PT-OP-F Manual Assessment Start: 11/29/20 17:37 Freq: Status: Active Protocol: Document 12/05/20 11:25 [facility] (Rec: 12/05/20 12:10 [facility] [id number]) Manual Assessments Soft Tissue Assessment Soft Tissue Mobility Assessment tightness in L glute/QL Joint Mobility Assessment Joint Mobility Assessment L iliac crest higher, equal greater trochanters PT-OP-G Mobility & Gait Start: 11/29/20 17:37 Freq: Status: Active Protocol: Document 12/05/20 11:25 [facility] (Rec: 12/05/20 12:10 [facility] [id number]) OP Gait Assessment Comments Gait Comments tightness L glutes & QL PT-OP-J Posture/Palpation/Skin Start: 11/29/20 17:37 Freq: Status: Active Protocol: Document 03/22/21 15:09 [facility] (Rec: 03/22/21 16:05 [facility] [id number]) Posture Evaluation Radha Postural Classification System Vertebral Compression Test 2 Lumbar Protective Mechanism Left AP 1 Lumbar Protective Mechanism Right AP 2 Lumbar Protective Mechanism Left PA 4 Lumbar Protective Mechanism Right PA 3 PT-OP-K Range of Motion Start: 11/29/20 17:37 Freq: Status: Active Protocol: Document 12/05/20 11:25 [facility] (Rec: 12/05/20 12:10 [facility] [id number]) Lumbar Spine Range of Motion Lumbar Spine Active Degrees Flexion 54 Extension 13 Rotation Left 64 Rotation Right 58 Lateral Flexion Left 6 Lateral Flexion Right 16 Comments pain in hip coming up from flex & pain w/L SB PT-OP-L Special Tests Start: 11/29/20 17:37 Freq: Status: Active Protocol: Document 12/05/20 11:25 [facility] (Rec: 12/05/20 12:10 [facility] [id number]) Special Tests Lumbar Spine Special Tests Víctor Test Results WNL Straight Leg Raise Test Results L 68, R 64 Slump Test Results neg B PT-OP-M Strength Start: 11/29/20 17:37 Freq: Status: Active Protocol: Document 03/22/21 15:09 [facility] (Rec: 03/22/21 16:05 [facility] [id number]) Hip Strength Hip Manual Muscle Testing Right Flexion (L2) 4 Good Extension (S1) 4 Good Abduction 4 Good External Rotation 4+ Good+ Internal Rotation 5 Normal Left Flexion (L2) 3+ Fair+ Extension (S1) 4 Good Abduction 4 Good External Rotation 2+ Poor+ Internal Rotation 5 Normal Knee Strength Knee Manual Muscle Testing Right Flexion (S2) 5 Normal Extension (L3) 5 Normal Left Flexion (S2) 5 Normal Extension (L3) 5 Normal Ankle/Foot Strength Ankle and Foot Manual Muscle Testing Right Dorsiflexion (L4) 5 Normal Plantarflexion (S1) 5 Normal Left Dorsiflexion (L4) 5 Normal Plantarflexion (S1) 5 Normal Comments PF tested seated PT-OP-Q Treatments Start: 11/29/20 17:37 Freq: Status: Active Protocol: Document 03/22/21 15:09 [facility] (Rec: 03/22/21 16:05 [facility] [id number]) Therapeutic Activity Therapeutic Activity posture Name standing posture Self-Care/Home Management Treatment Education Other Education edu re: what the words mean from MRI, explaining dermatomes along w/explaining meaning of stenosis, anatomy of lumbar, thoracic and sacral spine, edu on importance of posture & body mechanics to dec pain. PT-OP-T Assessment and Plan Start: 11/29/20 17:37 Freq: Status: Active Protocol: Document 03/22/21 15:09 [facility] (Rec: 03/22/21 16:05 [facility] [id number]) Physical Therapy Assessment Goals activities Form Worker Goal (LTG) Pt will be able to garden as she wishes without inc pain. 8 does 30 min at a time to avoid inc pain LTG Duration 04/22 posture Form Worker Goal (LTG) Pt will have improved posture by improvement of VCT to at least 4/5 without cuieng. 01/16-improving LTG Duration 9/12 strength Short Term Goal (STG) Pt will be indep w/HEP. STG Duration achieved Form Worker Goal (LTG) Pt will have improved strength of hips to at least 4/5 in all planes and at least 3/5 in all planes for LPM to show imrpoved stability to improve pt's mechanics and ability to particiapte in typical activities without pain. 01/16-improving 03/22-improved LTG Duration 04/22 balance Form Worker Goal (LTG) Pt will improve SLS to 10 sec B without significant lat shearing. 01/16 improving 02/28-improving does well on R, L a few sec LTG Duration 04/22 standing Short Term Goal (STG) Pt will be able to stand to prep animal meals without increased pain. STG Duration achieved Form Worker Goal (LTG) Pt will be able to stand as needed for all kitchen activties and when out in town without inc pain. 01/16- about 5 min before starts to aggrevate LTG Duration achieved 02/28 Assessment Summary Assessment Pt cont to improve but is still limited w/functional mboility like standing extended. HER posture cotn to imrpove but she still does require cueing. She would benefit from cont PT to work on her posture, ROM, functional mobility and review of HEP for 1 more month prior to dc Physical Therapy Plan Frequency and Duration Frequency of Treatment 1x/Week Duration of Treatment 1 months Plan of Care Start Date 03/22/21 Plan of Care End Date 04/22/21 Therapeutic Interventions Therapeutic Interventions Aquatic Therapy,Balance Training,Gait Training,Home Exercise Program,Joint Mobilizations,Manual Therapy, Neuromuscular Re-education, Patient/Caregiver Education, Self-Care/Home Management,Soft Tissue Mobilization,Taping, Therapeutic Activities, Therapeutic Exercises Modalities Cold Pack/Ice Massage,Electric Stimulation,Hot Packs, Ultrasound Next Visit Focus/Plan Next Note Type Treatment Note Next Visit Plan cont to work on posture & body mechanics
--- NOTE | 2021-03-22 17:51 | PT.OPPOC ---
Physical, Occupational & Speech Therapy At [facility] Current Diagnoses Other chronic pain (04/02/21) Pain in left hip (04/02/21) Low back pain (04/02/21) Dorsalgia, unspecified (04/02/21) Pain in left leg (04/02/21) Other abnormalities of gait and mobility (04/02/21) Abnormal posture (04/02/21) Weakness (04/02/21) Visit Care Team Role Provider Type RIGOBERTO Moulton Attending Provider Advanced Derrick Engineer Family Provider Primary Care Provider Referring Provider Specialty: Family Practice Address: [address] [place] [address], [facility] Email: [email or web address] PT-OP-T Assessment and Plan Start: 11/29/20 17:37 Freq: Status: Active Protocol: Document 03/22/21 15:09 [facility] (Rec: 03/22/21 16:05 [facility] [id number]) Physical Therapy Assessment Goals activities Supreme Court Judge Goal (LTG) Pt will be able to garden as she wishes without inc pain. 01/16 does 30 min at a time to avoid inc pain LTG Duration 04/22 posture Half-Way Goal (LTG) Pt will have improved posture by improvement of VCT to at least 4/5 without cuieng. 01/16-improving LTG Duration 04/22 strength Short Term Goal (STG) Pt will be indep w/HEP. STG Duration achieved Supreme Court Judge Goal (LTG) Pt will have improved strength of hips to at least 4/5 in all planes and at least 3/5 in all planes for LPM to show imrpoved stability to improve pt's mechanics and ability to particiapte in typical activities without pain. 01/16-improving 03/22-improved LTG Duration 04/[address] Goal (LTG) Pt will improve SLS to 10 sec B without significant lat shearing. 01/16 improving 02/28-improving does well on R, L a few sec LTG Duration 04/22 standing Short Term Goal (STG) Pt will be able to stand to prep animal meals without increased pain. STG Duration achieved Supreme [employer] Judge Goal (LTG) Pt will be able to stand as needed for all kitchen activties and when out in town without inc pain. 01/16- about 5 min before starts to aggrevate LTG Duration achieved 02/28 Assessment Summary Assessment Pt cont to improve but is still limited w/functional mboility like standing extended. HER posture cotn to imrpove but she still does require cueing. She would benefit from cont PT to work on her posture, ROM, functional mobility and review of HEP for 1 more month prior to dc Physical Therapy Plan Frequency and Duration Frequency of Treatment 1x/Week Duration of Treatment 1 months Plan of Care Start Date 03/22/21 Plan of Care End Date 04/22/21 Therapeutic Interventions Therapeutic Interventions Aquatic Therapy,Balance Training,Gait Training,Home Exercise Program,Joint Mobilizations,Manual Therapy, Neuromuscular Re-education, Patient/Caregiver Education, Self-Care/Home Management,Soft Tissue Mobilization,Taping, Therapeutic Activities, Therapeutic Exercises Modalities Cold Pack/Ice Massage,Electric Stimulation,Hot Packs, Ultrasound Next Visit Focus/Plan Next Note Type Treatment Note Next Visit Plan cont to work on posture & body mechanics Plan of Care Dates Plan of Care Start Date 03/22/21 Plan of Care End Date 04/22/21 Electronically Signed by: Mone Bettencourt, PT 04/03/21 [id number] Please Sign and Return: I have reviewed this Plan of Care and certify that the skilled therapy services above are required to meet the patient?s needs. Physician Signature Date Printed Name and Credentials Clinical Instructor Signature Printed Name and Credentials
--- NOTE | 2021-04-02 10:40 | PT.OTN ---
Current Diagnoses Other chronic pain (04/02/21) Pain in left hip (04/02/21) Low back pain (04/02/21) Dorsalgia, unspecified (04/02/21) Pain in left leg (04/02/21) Other abnormalities of gait and mobility (04/02/21) Abnormal posture (04/02/21) Weakness (04/02/21) Physical Therapy Treatment Note PT-OP-A Visit Information Start: 11/29/20 17:37 Freq: Status: Active Protocol: Document 04/02/21 09:58 [facility] (Rec: 04/02/21 10:40 [facility] [id number]) Out-Patient Physical Therapy Visit Information Visit Information Visit Type Discharge Summary Visit Note 08/20 Visit Start Time 09:51 Visit Stop Time 10:30 Total Visit Minutes 39 Visit Number 20 Number of BUTTON AND BUCKLE MAKER Visits 0 PT-OP-B Current Condition Start: 11/29/20 17:37 Freq: Status: Active Protocol: Document 12/05/20 11:25 [facility] (Rec: 12/05/20 12:10 [facility] [id number]) Current Condition History of Current Condition Onset Date 6 weeks ago Current Complaints L glute/SI pain History of Current Condition Pt has had chornic back pain with hx of L4-5 fusion in 2004 then repair again in 2009 w/ L3-4 then 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 She has babied back since surgeries and notes flex is worse than ext typically. Pt reports she has tingling and pain in L buttocks and standing is the worst where it will grab and tingle in buttocks L and can relieve by sititng down. Pt notes she is always hiked up on L side. Pt exercises with a management trainer on zoom w/ focus on stretches. Pt reports pain has increased over the past 6 weeks. 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 Prior Treatments and Tests Therapeutic massage-painful during, does not help, pulsed magnawave-did not help Treatment Goals Patient/Caregiver Goals Be able stand longer without pain Personal Factors Other Personal Factors That May Effect B TKAs, hysterectomy, L4-5 Therapy/Recovery fusion then repair, L TONY post approach PT-OP-C Subjective Start: 11/29/20 17:37 Freq: Status: Active Protocol: Document 04/02/21 09:58 [facility] (Rec: 04/02/21 10:40 [facility] [id number]) OP-PT Subjective Patient Comments Patient Comments Pt report she has a referral to a neurosurgeon in [place] PT-OP-D Balance Start: 11/29/20 17:37 Freq: Status: Active Protocol: Document 01/16/21 09:52 [facility] (Rec: 01/16/21 12:15 [facility] [id number]) Balance Tests Single Limb Standing Single Limb- Right 9 Single Limb- Left 5 PT-OP-F Manual Assessment Start: 11/29/20 17:37 Freq: Status: Active Protocol: Document 12/05/20 11:25 [facility] (Rec: 12/05/20 12:10 [facility] [id number]) Manual Assessments Soft Tissue Assessment Soft Tissue Mobility Assessment tightness in L glute/QL Joint Mobility Assessment Joint Mobility Assessment L iliac crest higher, equal greater trochanters PT-OP-G Mobility & Gait Start: 11/29/20 17:37 Freq: Status: Active Protocol: Document 12/05/20 11:25 [facility] (Rec: 12/05/20 12:10 [facility] [id number]) OP Gait Assessment Comments Gait Comments tightness L glutes & QL PT-OP-J Posture/Palpation/Skin Start: 11/29/20 17:37 Freq: Status: Active Protocol: Document 03/22/21 15:09 [facility] (Rec: 03/22/21 16:05 [facility] [id number]) Posture Evaluation Radha Postural Classification System Vertebral Compression Test 2 Lumbar Protective Mechanism Left AP 1 Lumbar Protective Mechanism Right AP 2 Lumbar Protective Mechanism Left PA 4 Lumbar Protective Mechanism Right PA 3 PT-OP-K Range of Motion Start: 11/29/20 17:37 Freq: Status: Active Protocol: Document 12/05/20 11:25 [facility] (Rec: 12/05/20 12:10 [facility] [id number]) Lumbar Spine Range of Motion Lumbar Spine Active Degrees Flexion 54 Extension 13 Rotation Left 64 Rotation Right 58 Lateral Flexion Left 6 Lateral Flexion Right 16 Comments pain in hip coming up from flex & pain w/L SB PT-OP-L Special Tests Start: 11/29/20 17:37 Freq: Status: Active Protocol: Document 12/05/20 11:25 [facility] (Rec: 12/05/20 12:10 [facility] [id number]) Special Tests Lumbar Spine Special Tests Víctor Test Results WNL Straight Leg Raise Test Results L 68, R 64 Slump Test Results neg B PT-OP-M Strength Start: 11/29/20 17:37 Freq: Status: Active Protocol: Document 03/22/21 15:09 [facility] (Rec: 03/22/21 16:05 [facility] [id number]) Hip Strength Hip Manual Muscle Testing Right Flexion (L2) 4 Good Extension (S1) 4 Good Abduction 4 Good External Rotation 4+ Good+ Internal Rotation 5 Normal Left Flexion (L2) 3+ Fair+ Extension (S1) 4 Good Abduction 4 Good External Rotation 2+ Poor+ Internal Rotation 5 Normal Knee Strength Knee Manual Muscle Testing Right Flexion (S2) 5 Normal Extension (L3) 5 Normal Left Flexion (S2) 5 Normal Extension (L3) 5 Normal Ankle/Foot Strength Ankle and Foot Manual Muscle Testing Right Dorsiflexion (L4) 5 Normal Plantarflexion (S1) 5 Normal Left Dorsiflexion (L4) 5 Normal Plantarflexion (S1) 5 Normal Comments PF tested seated PT-OP-Q Treatments Start: 11/29/20 17:37 Freq: Status: Active Protocol: Document 04/02/21 09:58 [facility] (Rec: 04/02/21 10:40 [facility] [id number]) Therapeutic Exercises Supine Exercises stretch Supine Exercise Name HS & ITB cross body stretch Side left Reps/Minutes 30 sec bridge Side bilateral Reps/Minutes 15 sec x4 LTR Supine Exercise Name Lower trunk rotation Side bilateral Reps/Minutes 8 ea Comments focus on core Piriformis Stretch Supine Exercise Name 1. knee to opp chest 2. figure 4 Side bilateral Reps/Minutes 30 sec ea core Supine Exercise Name knees to 90 hold Side bilateral Reps/Minutes 30 sec Prone Exercises ext Prone Exercise Name TKE w/toe lift for ext hold x5 sec Side left Reps/Minutes 10 Comments max cues Sitting Exercises Glute Stretch Sitting Exercise Name gentle Side bilateral Reps/Minutes 30 sec ea Standing Exercises SLS Standing Exercise Name in mirror working on wt acceptance Side bilateral hip hikes Standing Exercise Name in mirror Side bilateral Equipment Used counter Reps/Minutes 12 Squats Side bilateral Reps/Minutes 10 Comments over chair Manual Therapy Treatment Soft Tissue Mobilization Hip Body Location along sacral border L Mobilization Type Myofascial Release,Rolling, Sustained Pressure Intensity/Depth Moderate Body Position Prone Comments w/hip ER/IR Self-Care/Home Management Treatment Education Other Education discuss home program and small details to make sure she does correctly, importance of cont exercise PT-OP-T Assessment and Plan Start: 11/29/20 17:37 Freq: Status: Active Protocol: Document 04/02/21 09:58 [facility] (Rec: 04/02/21 10:40 [facility] [id number]) Physical Therapy Assessment Goals activities Assisted Goal (LTG) Pt will be able to garden as she wishes without inc pain. /8 does 30 min at a time to avoid inc pain LTG Duration about 30 min at a time posture Assisted Goal (LTG) Pt will have improved posture by improvement of VCT to at least 4/5 without cuieng. 01/16-improving LTG Duration achieved when cued to check posture strength Short Term Goal (STG) Pt will be indep w/HEP. STG Duration achieved Steam Plant Operator Goal (LTG) Pt will have improved strength of hips to at least 4/5 in all planes and at least 3/5 in all planes for LPM to show imrpoved stability to improve pt's mechanics and ability to particiapte in typical activities without pain. 01/16-improving 03/22-improved LTG Duration improved balance Steam Plant Operator Goal (LTG) Pt will improve SLS to 10 sec B without significant lat shearing. 01/16 improving 02/28-improving does well on R, L a few sec LTG Duration improved standing Short Term Goal (STG) Pt will be able to stand to prep animal meals without increased pain. STG Duration achieved Assisted Goal (LTG) Pt will be able to stand as needed for all kitchen activties and when out in town without inc pain. 01/16- about 5 min before starts to aggrevate LTG Duration achieved 02/28 Assessment Summary Assessment Pt has made good progress with PT and is able to stand for longer periords and stand with better posture and get there on her own. She still has weakness but is indep with HEP to help with strength, balance and flexiblity in order to dec pain. DC at this time. Physical Therapy Plan Discharge Physical Therapy Discharge Reasons Plateau in Progress
== END 2021-04-03 07:39 | disposition home or self-care (01) ==
LOC: PHYS 09:45
PROVIDERS: Family Provider Nurse Practitioner; PCP Nurse Practitioner; Referring Provider Nurse Practitioner; Visit Provider Nurse Practitioner
DX: M25.552 Pain in left hip (principal); G89.29 Other chronic pain; M54.5 Low back pain; M79.605 Pain in left leg; M54.9 Dorsalgia, unspecified; R53.1 Weakness; R29.3 Abnormal posture; R26.89 Other abnormalities of gait and mobility
CPT/HCPCS: 97110; 97112; 97116; 97140; 97162; 97530; 97535

== ENCOUNTER → 2021-05-22 11:27 | Outpatient (CLI) | payer MEDICARE, SELFPAY ==
--- NOTE | 2021-05-22 | DI.MG.S_ITS ---
BILATERAL DIGITAL SCREENING MAMMOGRAM 3D/2D WITH CAD: 05/22/2021 CLINICAL: Routine screening. Comparison is made to exams dated: 05/19/2020 mammogram, 04/25/2020 mammogram - [facility], 12/07/2018 mammogram, and 12/03/2017 mammogram - outside location. There are scattered fibroglandular elements in both breasts. Current study was also evaluated with a Computer Aided Detection (CAD) system. No significant masses, calcifications, or other findings are seen in either breast. There has been no significant interval change. IMPRESSION: NEGATIVE There is no mammographic evidence of malignancy. A 1 year screening mammogram is recommended. This exam was interpreted at Station ID: [id number]. NOTE: For mammograms, a report in lay terms will be sent to the patient. Approximately 15% of breast malignancies will not be visualized mammographically. In the management of a palpable breast mass, a negative mammogram must not discourage biopsy of a clinically suspicious lesion. Electronically Signed By: Mirella he/marine:05/22/2021 12:15:02 letter sent: Normal Exam ACR BI-RADS Category 1: Negative 3341F
== END ==
PROVIDERS: PCP Nurse Practitioner; Referring Provider Nurse Practitioner; Visit Provider Nurse Practitioner
DX: Z12.31 Encounter for screening mammogram for malignant neoplasm of breast (principal)
CPT/HCPCS: 77063; 77067

== ENCOUNTER → 2021-08-17 06:50 | Outpatient (CLI) | payer MEDICARE, SELFPAY ==
[2021-08-17 08:54] LABS: Creatinine Urine Random 50.8 mg/dL
[2021-08-17 08:56] LABS: Hemoglobin A1C% w Est Avg Glu 5.9 % (4.0-6.0)
[2021-08-17 09:21] LABS: Microalbumin Urine Random < 0.6 mg/dL (0-1.6)
[2021-08-17 09:40] LABS: Alanine Aminotransferase 19 IU/L (<35); Albumin 3.9 g/dL (3.5-5.0); Albumin Globulin Ratio 1.5 (1.0-2.8); Alkaline Phosphatase 74 U/L (38-126); Aspartate Aminotransferase 26 IU/L (14-36); BUN Creatinine Ratio 27.7 (6-22); Bilirubin Total 0.6 mg/dL (0.2-1.3); Blood Urea Nitrogen 23 mg/dL (7-17); Calcium 9.6 mg/dL (8.4-10.2); Carbon Dioxide 29 mmol/L (22-32); Chloride 100 mmol/L (98-107); Cholesterol 146 mg/dL (140-199); Estimated Glomerular Filt Rate > 60.0 mL/min (>60); Globulin 2.6 g/dL (1.7-4.1); Glucose 80 mg/dL (80-110); HDL Cholesterol 74 mg/dL (40-60); HEMOLYSIS < 15 (0-50); LDL Cholesterol Calculated 57 mg/dL (<100); Potassium 4.2 mmol/L (3.4-5.1); Sodium 134 mmol/L (137-145); Total Protein 6.5 g/dL (6.3-8.2); Triglycerides 76 mg/dL (35-150)
[2021-08-17 09:58] LABS: Thyroid Stimulating Hormone 4.19 uIU/mL (0.47-4.68)
== END ==
PROVIDERS: PCP Nurse Practitioner; Referring Provider Nurse Practitioner; Visit Provider Nurse Practitioner
DX: Z79.899 Other long term (current) drug therapy (principal); I10 Essential (primary) hypertension; E03.9 Hypothyroidism, unspecified; E78.2 Mixed hyperlipidemia; Z13.1 Encounter for screening for diabetes mellitus
CPT/HCPCS: 36415; 80053; 80061; 82043; 82570; 83036; 84443

== ENCOUNTER → 2021-12-20 10:54 | Outpatient (CLI) | payer MEDICARE, SELFPAY ==
--- NOTE | 2021-12-20 10:56 | DI.RAD.S_ITS ---
PROCEDURE: XR SACRUM COCCYX MIN 2V INDICATIONS: Right sided tailbone pain, s/p fall TECHNIQUE: 3 views of the sacrum and coccyx acquired. COMPARISON: None. FINDINGS: Bones: Left worse than right bilateral sacroiliac joint osteoarthritic changes are seen. No gross acute sacral or coccygeal fracture. There is prior fusion of lower lumbar spine and left total hip arthroplasty. Soft tissues: Visualized bowel gas pattern is normal. No suspicious soft tissue densities. IMPRESSION: No gross acute displaced sacral or coccygeal fracture is noted. Bilateral sacroiliac joint osteoarthritis. Dictated by: Darryn Sams M.D. on 12/20/2021 at 11:47 Approved by: Darryn Sams M.D. on 12/20/2021 at 11:49
== END ==
PROVIDERS: PCP Nurse Practitioner; Referring Provider Physician Assistant; Visit Provider Physician Assistant
DX: M53.3 Sacrococcygeal disorders, not elsewhere classified (principal); M46.1 Sacroiliitis, not elsewhere classified
CPT/HCPCS: 72220

== ENCOUNTER → 2022-05-24 12:26 | Outpatient (CLI) | payer MEDICARE, SELFPAY ==
--- NOTE | 2022-05-24 12:28 | DI.MG.S_ITS ---
BILATERAL DIGITAL SCREENING MAMMOGRAM 3D/2D WITH CAD: 05/24/2022 CLINICAL: Routine screening. Comparison is made to exams dated: 05/22/2021 mammogram, 05/19/2020 ultrasound, 05/19/2020 mammogram, and 04/25/2020 mammogram - [facility]. There are scattered areas of fibroglandular density in both breasts (category b / 25%-50% glandular tissue). Current study was also evaluated with a Computer Aided Detection (CAD) system. No significant masses, calcifications, or other findings are seen in either breast. There has been no significant interval change. IMPRESSION: NEGATIVE There is no mammographic evidence of malignancy. A 1 year screening mammogram is recommended. Based on the Tyrer Cuzick model (a risk assessment model) the patient's lifetime risk is 0.3% and her 10 year risk is 0.0%. According to the ACR, ACS, and NCCN guidelines, an annual breast MRI exam along with mammogram is recommended if the patient's lifetime risk is 20% or greater. This exam was interpreted at Station ID: [id number]. NOTE: For mammograms, a report in lay terms will be sent to the patient. Approximately 15% of breast malignancies will not be visualized mammographically. In the management of a palpable breast mass, a negative mammogram must not discourage biopsy of a clinically suspicious lesion. Electronically Signed By: Mirella he/marine:05/24/2022 15:46:52 letter sent: Normal Exam ACR BI-RADS Category 1: Negative [id number]
== END ==
PROVIDERS: PCP Nurse Practitioner; Referring Provider Nurse Practitioner; Visit Provider Nurse Practitioner
DX: Z12.31 Encounter for screening mammogram for malignant neoplasm of breast (principal)
CPT/HCPCS: 77063; 77067

== ENCOUNTER → 2022-09-20 06:52 | Outpatient (CLI) | payer MEDICARE, SELFPAY ==
[2022-09-20 08:00] LABS: Alanine Aminotransferase 23 IU/L (<35); Albumin Globulin Ratio 1.4 (1.0-2.8); Alkaline Phosphatase 82 U/L (38-126); Aspartate Aminotransferase 26 IU/L (14-36); BUN Creatinine Ratio 28.6 (6-22); Bilirubin Total 0.5 mg/dL (0.2-1.3); Blood Urea Nitrogen 24 mg/dL (7-17); Calcium 9.1 mg/dL (8.4-10.2); Carbon Dioxide 30 mmol/L (22-32); Chloride 99 mmol/L (98-107); Cholesterol 145 mg/dL (140-199); Estimated Glomerular Filt Rate > 60 mL/min (>60); Globulin 2.8 g/dL (1.7-4.1); Glucose 88 mg/dL (80-110); HDL Cholesterol 70 mg/dL (40-60); HEMOLYSIS < 15 (0-50); LDL Cholesterol Calculated 62 mg/dL (<100); Potassium 4.3 mmol/L (3.4-5.1); Sodium 136 mmol/L (137-145); Total Protein 6.8 g/dL (6.3-8.2); Triglycerides 64 mg/dL (35-150)
[2022-09-20 08:42] LABS: TSH w/ Reflex to FT4 3.27 uIU/mL (0.47-4.68)
[2022-09-20 08:52] LABS: Creatinine Urine Random 65.5 mg/dL
[2022-09-20 08:57] LABS: Microalbumin Urine Random < 0.6 mg/dL (0-1.6)
[2022-09-20 13:01] LABS: Hep C Virus Ab w/Reflex Quant NEGATIVE s/c (NEGATIVE)
== END ==
PROVIDERS: PCP Nurse Practitioner; Referring Provider Nurse Practitioner; Visit Provider Nurse Practitioner
DX: I10 Essential (primary) hypertension (principal); E03.9 Hypothyroidism, unspecified; E78.2 Mixed hyperlipidemia; R73.01 Impaired fasting glucose; Z11.59 Encounter for screening for other viral diseases
CPT/HCPCS: 36415; 80053; 80061; 82043; 82570; 84443; 86803

== ENCOUNTER → 2023-02-17 13:57 | Outpatient (CLI) | payer MEDICARE, SELFPAY ==
--- NOTE | 2023-02-17 14:07 | DI.RAD.S_ITS ---
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 COMPARISON: None. FINDINGS: Bones: No bony erosions or ankylosis. No suspicious bony lesions. No fractures. Soft tissues: Overlying bowel gas pattern is normal. No suspicious soft tissue densities. IMPRESSION: No suspicious bony erosions or ankylosis. Dictated by: Kalyn Whitten M.D. on 02/17/2023 at 16:42 Approved by: Kalyn Whitten M.D. on 02/17/2023 at 16:43
--- NOTE | 2023-02-17 14:07 | DI.RAD.S_ITS ---
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 COMPARISON: None. FINDINGS: Bones: Severe degenerative changes are present at the 1st CMC joint. Moderate changes are present at the triscaphe joint. There is mild subluxation of the 2nd and 3rd CMC joints. There is mild diffuse interphalangeal joint space narrowing. No suspicious bony erosions. Soft tissues: Soft tissue calcification or ossification is noted near the 3rd PIP joint. IMPRESSION: 1. Severe osteoarthritis at the 1st CMC joint. 2. Subluxation of the 2nd and 3rd CMC joints which may be associated with erosive arthritis. No suspicious bony erosions. Dictated by: Kalyn Whitten M.D. on 02/17/2023 at 16:40 Approved by: Kalyn Whitten M.D. on 02/17/2023 at 16:42
--- NOTE | 2023-02-17 14:07 | DI.RAD.S_ITS ---
PROCEDURE: XR FOOT LT MIN 3V INDICATIONS: [facility] USE OF HYDROXYCHLOROQUINE TECHNIQUE: 3 views of the foot were acquired. COMPARISON: [facility], CR, XR FOOT 3+ VIEWS LEFT, 06/19/2021, 14:56. FINDINGS: Bones: No acute fracture or dislocation. Moderate degenerative changes are present at the TMT joints and the 1st MCP joint. A bony erosion is noted at the base of the 3rd metatarsal. This is new when compared with the study dated June 19, 2021. No other suspicious bony lesions. Soft tissues: No tibiotalar joint effusion. Achilles tendon appears normal. IMPRESSION: New cystic lucency at the base of the 3rd metatarsal which may represent progression of erosive arthritis. Dictated by: Kalyn Whitten M.D. on 02/17/2023 at 16:35 Approved by: Kalyn Whitten M.D. on 02/17/2023 at 16:37
--- NOTE | 2023-02-17 14:07 | DI.RAD.S_ITS ---
PROCEDURE: XR FOOT RT MIN 3V INDICATIONS: CARE HOME USE OF HYDROXYCHLOROQUINE TECHNIQUE: 3 views of the foot were acquired. COMPARISON: [facility] [place], CR, XR FOOT 3+ VIEWS RIGHT, 06/19/2021, 14:53. FINDINGS: Bones: Severe erosive and degenerative changes are present at the TMT joints. These findings have increased in severity when compared with the prior study dated June 19, 2021. There has been marked interval destruction of the cuneiform and cuboid bones as well as the distal aspect of the navicular bone. Moderate degenerative changes are present at the 1st MTP joint, as before. The interphalangeal joint spaces are relatively well preserved. Soft tissues: No tibiotalar joint effusion. Achilles tendon appears normal. IMPRESSION: 1. Marked increase in the erosive changes of the right midfoot with marked destructive changes associated with the cuboid, cuneiform bones, and the navicular when compared with the 2020 study. Dictated by: Kalyn Whitten M.D. on 02/17/2023 at 16:37 Approved by: Kalyn Whitten M.D. on 02/17/2023 at 16:40
--- NOTE | 2023-02-17 14:07 | DI.RAD.S_ITS ---
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 COMPARISON: [facility], CR, XR LUMBAR SPINE 2-3V, 11/21/2020, 15:50. FINDINGS: Bones: There are 5 [id number] lumbar vertebral bodies. Posterior fixation is redemonstrated at L4-5. No hardware fracture. Levoscoliosis of the lumbar spine centered at L3 is redemonstrated. A severe left-sided compression deformity is present at L2. Overall this has a similar appearance to the study dated November 21, 2020. No new compression deformities. Soft tissues: Overlying bowel gas pattern is normal. Scattered atheromatous calcifications are present throughout the abdominal aorta. Oblique images: The pars interarticularis are poorly characterized on oblique views. IMPRESSION: 1. Severe left-sided compression deformity at L2 likely similar in extent to the 2020 study. 2. Pars interarticularis are poorly characterized given osteopenia, scoliotic deformity and degenerative changes. If further characterization is warranted, CT of the lumbar spine is recommended. Dictated by: Kalyn Whitten M.D. on 02/17/2023 at 17:04 Approved by: Kalyn Whitten M.D. on 02/17/2023 at 17:07
--- NOTE | 2023-02-17 14:08 | DI.RAD.S_ITS ---
PROCEDURE: XR HAND RT MIN 3V INDICATIONS: [facility] USE OF HYDROXYCHLOROQUINE TECHNIQUE: 3 views of the hand(s) acquired. COMPARISON: [facility], CR, XR HAND LT MIN 3V, 02/17/2023, 14:07. FINDINGS: Bones: No acute fracture or dislocation. Severe degenerative changes are present at the 1st MCP joint. Subluxation is noted throughout the CMC joints. A bony erosion is present at the distal right 3rd proximal phalanx. There is negative ulnar variance. Bony lucencies are noted at the scaphoid and lunate bones. Soft tissues: No suspicious soft tissue calcifications. IMPRESSION: 1. Severe osteoarthritis of the 1st CMC joint. 2. Bony lucencies as above which may be associated with erosive arthritis or subchondral cystic changes. Dictated by: Kalyn Whitten M.D. on 02/17/2023 at 16:32 Approved by: Kalyn Whitten M.D. on 02/17/2023 at 16:35
[2023-02-17 15:54] LABS: Add Manual Diff / Slide Review NO; Basophils Absolute Auto 0 /uL (0-100); Basophils Percent Auto 0.8 % (0-2); Eosinophils Absolute Auto 200 /uL (0-450); Eosinophils Percent Auto 3.6 % (2-4); Hematocrit 35.9 % (36-46); Hemoglobin 12.3 g/dL (12.0-16.0); Lymphocytes Absolute Auto 600 /uL (1100-4500); Lymphocytes Percent Auto 10.1 % (25-40); Mean Corpuscular HGB Conc 34.4 % (30-36); Mean Corpuscular Hemoglobin 32.1 PG (26-34); Mean Corpuscular Volume 93.5 fL (80-100); Monocytes Absolute Auto 700 /uL (0-900); Monocytes Percent Auto 11.7 % (3-14); Neutrophils Absolute Auto 4700 /uL (1500-7000); Neutrophils Percent Auto 73.8 % (50-75); Platelet Count 237 X10^3/uL (150-400); Red Blood Cell Count 3.83 X10^6/uL (4.0-5.2); Red Cell Distribution Width 13.2 % (11.6-14.8); White Blood Cell Count 6.4 X10^3/uL (4.5-11.0)
[2023-02-17 16:32] LABS: Alanine Aminotransferase 23 IU/L (<35); Albumin Globulin Ratio 1.5 (1.0-2.8); Alkaline Phosphatase 74 U/L (38-126); Aspartate Aminotransferase 26 IU/L (14-36); BUN Creatinine Ratio 25.7 (6-22); Bilirubin Total 0.3 mg/dL (0.2-1.3); Blood Urea Nitrogen 27 mg/dL (7-17); C-Reactive Protein Quant < 0.5 mg/dL (<1.0); Calcium 9.2 mg/dL (8.4-10.2); Carbon Dioxide 28 mmol/L (22-32); Chloride 101 mmol/L (98-107); Estimated Glomerular Filt Rate 52 mL/min (>60); Globulin 2.6 g/dL (1.7-4.1); Glucose 108 mg/dL (80-110); HEMOLYSIS < 15 (0-50); Potassium 3.8 mmol/L (3.4-5.1); Sodium 136 mmol/L (137-145); Total Protein 6.6 g/dL (6.3-8.2); Uric Acid 4.9 mg/dL (2.5-6.2)
[2023-02-17 16:43] LABS: Rheumatoid Factor < 8.6 IU/mL (<12.0)
[2023-02-17 19:04] LABS: Erythrocyte Sedimentation Rate 4 MM/HR (0-20)
[2023-02-19 22:49] LABS: CCP Antibodies IgG/IgA 3 units (0-19)
== END ==
LOC: LAB 14:01 → RAD 14:04
PROVIDERS: PCP Nurse Practitioner; Referring Provider Specialist/Technologist Athletic Trainer; Visit Provider Specialist/Technologist Athletic Trainer
DX: S63.051A Subluxation of other carpometacarpal joint of right hand, initial encounter (principal); S63.052A Subluxation of other carpometacarpal joint of left hand, initial encounter; M18.0 Bilateral primary osteoarthritis of first carpometacarpal joints; M85.872 Other specified disorders of bone density and structure, left ankle and foot; M85.871 Other specified disorders of bone density and structure, right ankle and foot; M19.90 Unspecified osteoarthritis, unspecified site; M79.671 Pain in right foot; M43.8X6 Other specified deforming dorsopathies, lumbar region; M85.88 Other specified disorders of bone density and structure, other site; M41.9 Scoliosis, unspecified; Z79.899 Other long term (current) drug therapy; Z82.69 Family history of other diseases of the musculoskeletal system and connective tissue
CPT/HCPCS: 36415; 72110; 72202; 73130; 73630; 80053; 84550; 85025; 85651; 86140; 86200; 86430

== ENCOUNTER → 2023-03-20 10:03 | Outpatient (CLI) | payer MEDICARE, SELFPAY ==
[2023-03-20 12:02] LABS: Alanine Aminotransferase 20 IU/L (<35); Albumin 4.1 g/dL (3.5-5.0); Albumin Globulin Ratio 1.6 (1.0-2.8); Alkaline Phosphatase 82 U/L (38-126); Aspartate Aminotransferase 26 IU/L (14-36); BUN Creatinine Ratio 25.3 (6-22); Bilirubin Total 0.5 mg/dL (0.2-1.3); Blood Urea Nitrogen 25 mg/dL (7-17); Calcium 9.1 mg/dL (8.4-10.2); Carbon Dioxide 28 mmol/L (22-32); Chloride 100 mmol/L (98-107); Estimated Glomerular Filt Rate 56 mL/min (>60); Globulin 2.6 g/dL (1.7-4.1); Glucose 88 mg/dL (80-110); HEMOLYSIS < 15 (0-50); Potassium 4.2 mmol/L (3.4-5.1); Sodium 134 mmol/L (137-145); Total Protein 6.7 g/dL (6.3-8.2)
== END ==
PROVIDERS: PCP Nurse Practitioner; Referring Provider Nurse Practitioner; Visit Provider Nurse Practitioner
DX: E86.0 Dehydration (principal); R79.9 Abnormal finding of blood chemistry, unspecified
CPT/HCPCS: 36415; 80053

== ENCOUNTER → 2023-04-01 10:08 | Outpatient (CLI) | payer MEDICARE, SELFPAY | PROVIDERS: PCP Nurse Practitioner; Referring Provider Nurse Practitioner; Visit Provider Nurse Practitioner | DX: I10 Essential (primary) hypertension (principal) | CPT/HCPCS: 93005 ==

== ENCOUNTER → 2023-04-11 | Outpatient (CLI) | payer MEDICARE, SELFPAY ==
--- NOTE | 2023-04-11 08:06 | DI.RAD.S_ITS ---
Bone Density Report Name: ALONA CERDA Age: 83 Sex: Female Ethnicity: White Date of : 1940 Indication: osteopenia; Referring Provider: LAURE MOJICA Study: Bone densitometry was performed. Exam Date: April 11, 2023 Accession number: [id number] Bone Density: Region BMD T-score Z-score Classification Femoral Neck (Right) 0.560 -2.6 -0.1 Osteoporosis Total Hip (Right) 0.624 -2.6 -0.3 Osteoporosis Total Forearm (Left) 0.412 -3.1 Osteoporosis 1/3 Forearm (Left) 0.541 -2.5 Osteoporosis UD Forearm (Left) 0.279 -2.8 Osteoporosis World Health Organization criteria for BMD impression classify patients as: Normal (T-score at or above -1.0), Osteopenia (T-score between -1.0 and -2.5), or Osteoporosis (T-score at or below -2.5). 10-year Fracture Risk: FRAX not reported because: Some T-score for Spine Total or Hip Total or Femoral Neck at or below -2.5 Previous Exams: -- Region Exam Age BMD T-score BMD Change BMD Change Date g/cm2 vs Baseline vs Previous -- Total Hip(Right) 04/11/2023 83 0.624 -2.6 -0.088 (-12.4%)# -0.088 (-12.4%)# 04/20/2020 80 0.712 -1.9 -- *Denotes significance at 95% confidence level, LSC for Total Hip = 0.027 g/cm2 # Denotes dissimilar scan types or analysis methods Impression: The patient has osteoporosis, based on the Right Total Hip T-score. No significant bone loss was observed. Discussion: INCREASED RISK OF FRACTURE. BONE DENSITY IS UNDESIRABLY LOW AT ONE OR MORE SKELETAL SITES, CONSISTENT WITH POSTMENOPAUSAL OSTEOPOROSIS. This patient's lowest T-score meets the World Health Organization's (WHO) criteria for osteoporosis at one or more sites (T-score -2.5 or below). In untreated patients, the risk of osteoporotic fracture increases approximately two-fold for each 1.0 SD decrease in T-score. Low bone density is not the only risk factor for fracture; also consider factors such as patient's age, frailty or poor health, risk of falling, risk of injury, previous osteoporotic fracture, family history of osteoporosis, cigarette smoking, low body weight, etc. Not everyone with low bone mineral density has osteoporosis; osteomalacia and other metabolic bone disorders should also be considered. Patients who have osteoporosis should be evaluated for specific diseases and conditions (secondary causes) that may cause or contribute to bone loss. The [place] [employer]ocrinologists (AACE) and National Osteoporosis Foundation (NOF) recommend pharmacologic intervention for all postmenopausal women whose T-score is in this range. The patient should follow a healthful lifestyle (good nutrition with adequate calcium and vitamin D, and appropriate weight-bearing exercise). Follow-Up: Consider a repeat BMD and Vertebral Fracture Assessment (VFA) exam in 2 years or sooner if medically necessary, to reassess this patient's status. Reported by: JOS ROMAN M.D on 04/11/2023 9:14:00 AM.
--- NOTE | 2023-04-11 08:06 | DI.ECHO.S_ITS ---
[facility]+ [facility] +---------+ : : [address] : [place] : : : : [id number] : : : : Phone: [phone]+ Echocardiogram Report + + :Name: ALONA CERDA Study Date: 04/11/2023 Height: 65 in : :[facility] ReadingLocation: Weight: 165 lb : : Gender: Female BSA: 1.8 m2 : :: 1940 Age: 83 yrs BP: 183/94 mmHg: :Reason For Study: Hypertension : :Ordering Physician: YUNIOR, : :LAURE Performed By: Anny Ahmadi : :Referring: LAURE MOJICA : + + Interpretation Summary Diastolic parameters suggest probable normal left ventricular diastolic function and normal filling pressures. The right ventricle is normal in size and function. Pulmonary artery pressures cannot be estimated because of the lack of a measurable TR jet velocity. Both atria are normal in size. No significant valvular abnormality. Procedure: A two-dimensional transthoracic echocardiogram with color flow and Doppler was performed. The study quality was technically difficult. There is no prior echocardiogram noted for this patient. The patient was in normal sinus rhythm during the exam. Left Ventricle: The left ventricle is normal in size. The ejection fraction is estimated to be 55-60%. There are no obvious focal wall motion abnormalities noted but poor endocardial definition reduces the sensitivity for the detection of such. Diastolic parameters suggest probable normal left ventricular diastolic function and normal filling pressures. Right Ventricle: The right ventricle is normal in size and function. Atria: The left atrial size is normal. Both atria are normal in size. Right atrial size is normal. There is no Doppler evidence for an interatrial shunt. Mitral Valve: The mitral valve leaflets appear borderline thickened, but open well. There is mild mitral annular calcification. There is no mitral valve stenosis. There is trace mitral regurgitation. Aortic Valve: The aortic valve is trileaflet. The aortic valve opens well. There is no aortic valve stenosis. There is trace aortic regurgitation. Tricuspid Valve: The tricuspid valve is normal. There is no tricuspid stenosis. There is trace tricuspid regurgitation. Pulmonary artery pressures cannot be estimated because of the lack of a measurable TR jet velocity. Pulmonic Valve: The pulmonic valve leaflets are thin and pliable; valve motion is normal. There is no pulmonic valvular stenosis. There is trace pulmonic regurgitation. Great Vessels: The aortic root is normal size. The ascending aorta is normal in size. The pulmonary artery is normal size. The IVC is of normal diameter and collapses less than 50% with a sniff. This suggests a right atrial pressure of 8 mm Hg. Pericardium/ Pleura There is a trivial pericardial effusion noted. There is no pleural effusion. MMode/2D Measurements & Calculations LVIDd: 4.9 cm LVOT diam: 1.9 cm LVIDs: 2.6 cm Ao root diam: 3.2 cm FS: 46.9 % asc Aorta Diam: 3.0 cm EPSS: 1.1 cm IVSd: 0.80 cm LVPWd: 0.80 cm LV doshi. diameter/BSA (cm/m^2): 2.7 LV sys. diameter/BSA (cm/m^2): 1.4 LA A2 area: 13.3 cm2 RA long axis: 4.3 cm LA A4 area: 16.0 cm2 RA area: 11.8 cm2 LA length (vol): 4.8 cm RA vol: 27.3 ml LA vol: 37.6 ml RA : 15.0 ml/m2 LA vol index: 20.6 ml/m2 RVD1 (basal): 3.1 cm LVLs ap4: 6.1 cm LVLd ap2: 6.6 cm TAPSE_phl: 2.8 cm LVLs ap2: 5.7 cm Doppler Measurements & Calculations Ao V2 max: 133.0 cm/sec LVOT Max Joo: 94.3 cm/sec Ao V2 mean: 95.3 cm/sec LV V1 max P.6 mmHg Ao max P.0 mmHg LV V1 VTI: 21.4 cm Ao mean P.0 mmHg NOLBERTO(I,D): 1.9 cm2 Ao V2 VTI: 32.1 cm NOLBERTO(V,D): 2.0 cm2 sev ratio: 0.67 NOLBERTO indexed to BSA (cm^2/m^2): 1.0 MV E max joo: 71.6 cm/sec PA V2 max: 94.5 cm/sec MV A max joo: 127.0 cm/sec PA V2 mean: 64.6 cm/sec MV E/A: 0.56 PA mean P.0 mmHg Med Peak E' Joo: 6.3 cm/sec PA pr(Accel): 27.7 mmHg E/E' med: 11.4 Lat Peak E' Joo: 7.0 cm/sec E/E' lat: 10.2 E/e' average: 10.8 MV dec time: 0.24 sec SV(LVOT): 60.7 ml AV VR_phl: 0.71 NOLBERTO(VTI)/BSA_phl: 1.0 Reading Physician:BINTA
== END ==
PROVIDERS: PCP Nurse Practitioner; Referring Provider Nurse Practitioner; Visit Provider Nurse Practitioner
DX: N95.8 Other specified menopausal and perimenopausal disorders (principal); M81.0 Age-related osteoporosis without current pathological fracture; I10 Essential (primary) hypertension; I34.81 Nonrheumatic mitral (valve) annulus calcification
CPT/HCPCS: 77080; 77081; 93306

== ENCOUNTER → 2023-05-05 12:26 | Outpatient (CLI) | payer MEDICARE, SELFPAY ==
[2023-05-05 16:21] LABS: Vitamin D 25 Hydroxy (D3) 80.2 ng/mL (30.0-100.0)
== END ==
PROVIDERS: PCP Nurse Practitioner; Visit Provider Family Medicine
DX: M81.0 Age-related osteoporosis without current pathological fracture (principal)
CPT/HCPCS: 82306

== ENCOUNTER → 2023-06-05 15:20 | Outpatient (CLI) | payer MEDICARE, SELFPAY ==
--- NOTE | 2023-06-05 | DI.MG.S_ITS ---
BILATERAL DIGITAL SCREENING MAMMOGRAM 3D/2D WITH CAD: 06/05/2023 CLINICAL: Routine screening. Comparison is made to exams dated: 05/24/2022 mammogram, 05/22/2021 mammogram, and 04/25/2020 mammogram - [facility]. There are scattered areas of fibroglandular density in both breasts (category b / 25%-50% glandular tissue). Current study was also evaluated with a Computer Aided Detection (CAD) system. No significant masses, calcifications, or other findings are seen in either breast. IMPRESSION: NEGATIVE There is no mammographic evidence of malignancy. A 1 year screening mammogram is recommended. This exam was interpreted at Station ID: [id number]. NOTE: For mammograms, a report in lay terms will be sent to the patient. Approximately 15% of breast malignancies will not be visualized mammographically. In the management of a palpable breast mass, a negative mammogram must not discourage biopsy of a clinically suspicious lesion. Electronically Signed By: Acacia Zhu M.D., PH.D russ/marine:06/08/2023 20:56:38 letter sent: Normal Exam ACR BI-RADS Category 1: Negative [id number]
== END ==
PROVIDERS: PCP Nurse Practitioner; Referring Provider Nurse Practitioner; Visit Provider Nurse Practitioner
DX: Z12.31 Encounter for screening mammogram for malignant neoplasm of breast (principal)
CPT/HCPCS: 77063; 77067

== ENCOUNTER → 2023-08-15 07:04 | Outpatient (CLI) | payer MEDICARE, SELFPAY ==
[2023-08-15 07:45] LABS: Add Manual Diff / Slide Review NO; Basophils Absolute Auto 100 /uL (0-100); Basophils Percent Auto 2.3 % (0-2); Eosinophils Absolute Auto 400 /uL (0-450); Eosinophils Percent Auto 9.3 % (2-4); Hematocrit 37.3 % (36-46); Hemoglobin 12.7 g/dL (12.0-16.0); Lymphocytes Absolute Auto 700 /uL (1100-4500); Lymphocytes Percent Auto 13.8 % (25-40); Mean Corpuscular Hemoglobin 32.3 PG (26-34); Mean Corpuscular Volume 94.9 fL (80-100); Monocytes Absolute Auto 600 /uL (0-900); Monocytes Percent Auto 12.5 % (3-14); Neutrophils Absolute Auto 2900 /uL (1500-7000); Neutrophils Percent Auto 62.1 % (50-75); Platelet Count 252 X10^3/uL (150-400); Red Blood Cell Count 3.93 X10^6/uL (4.0-5.2); Red Cell Distribution Width 12.9 % (11.6-14.8); White Blood Cell Count 4.7 X10^3/uL (4.5-11.0)
[2023-08-15 08:16] LABS: Alanine Aminotransferase 18 IU/L (<35); Albumin 3.9 g/dL (3.5-5.0); Albumin Globulin Ratio 1.6 (1.0-2.8); Alkaline Phosphatase 68 U/L (38-126); BUN Creatinine Ratio 29.2 (6-22); Bilirubin Total 0.7 mg/dL (0.2-1.3); Blood Urea Nitrogen 28 mg/dL (7-17); C-Reactive Protein Quant < 0.5 mg/dL (<1.0); Carbon Dioxide 28 mmol/L (22-32); Chloride 101 mmol/L (98-107); Estimated Glomerular Filt Rate 58 mL/min (>60); Globulin 2.5 g/dL (1.7-4.1); Glucose 92 mg/dL (80-110); HEMOLYSIS < 15 (0-50); Potassium 4.4 mmol/L (3.4-5.1); Sodium 135 mmol/L (137-145); Total Protein 6.4 g/dL (6.3-8.2)
[2023-08-15 08:59] LABS: Erythrocyte Sedimentation Rate 5 MM/HR (0-20)
[2023-08-15 15:29] LABS: Aspartate Aminotransferase 24 IU/L (14-36)
== END ==
PROVIDERS: PCP Nurse Practitioner; Referring Provider Specialist/Technologist Athletic Trainer; Visit Provider Specialist/Technologist Athletic Trainer
DX: M05.9 Rheumatoid arthritis with rheumatoid factor, unspecified (principal)
CPT/HCPCS: 36415; 80053; 85025; 85651; 86140

== ENCOUNTER → 2023-11-15 08:01 | Outpatient (CLI) | payer MEDICARE, SELFPAY ==
[2023-11-15 09:09] LABS: Hemoglobin A1C% w Est Avg Glu 5.8 % (4.0-6.0)
[2023-11-15 09:30] LABS: Alanine Aminotransferase 14 IU/L (<35); Albumin 3.7 g/dL (3.5-5.0); Albumin Globulin Ratio 1.5 (1.0-2.8); Alkaline Phosphatase 84 U/L (38-126); Aspartate Aminotransferase 21 IU/L (14-36); BUN Creatinine Ratio 31.2 (6-22); Bilirubin Total 0.7 mg/dL (0.2-1.3); Blood Urea Nitrogen 29 mg/dL (7-17); Calcium 9.7 mg/dL (8.4-10.2); Carbon Dioxide 29 mmol/L (22-32); Chloride 103 mmol/L (98-107); Cholesterol 137 mg/dL (140-199); Estimated Glomerular Filt Rate > 60 mL/min (>60); Globulin 2.5 g/dL (1.7-4.1); Glucose 91 mg/dL (80-110); HDL Cholesterol 62 mg/dL (40-60); HEMOLYSIS < 15 (0-50); LDL Cholesterol Calculated 54 mg/dL (<100); Potassium 4.5 mmol/L (3.4-5.1); Sodium 136 mmol/L (137-145); Total Protein 6.2 g/dL (6.3-8.2); Triglycerides 103 mg/dL (35-150)
[2023-11-15 09:46] LABS: Free T3, Triiodothyronine Free 3.88 pg/mL (2.77-5.27); Free T4, Direct Thyroxine 1.84 ng/dL (0.78-2.19)
[2023-11-15 10:35] LABS: Creatinine Urine Random 60.7 mg/dL
[2023-11-15 10:42] LABS: Microalbumin Urine Random < 0.6 mg/dL (0-1.6)
== END ==
PROVIDERS: PCP Nurse Practitioner; Referring Provider Nurse Practitioner; Visit Provider Nurse Practitioner
DX: R73.01 Impaired fasting glucose (principal); N18.9 Chronic kidney disease, unspecified; E03.9 Hypothyroidism, unspecified; M81.0 Age-related osteoporosis without current pathological fracture; E78.5 Hyperlipidemia, unspecified; I10 Essential (primary) hypertension; Z79.899 Other long term (current) drug therapy
CPT/HCPCS: 36415; 80053; 80061; 82043; 82570; 83036; 84439; 84443; 84481

== ENCOUNTER → 2024-04-17 07:56 | Outpatient (CLI) | payer MEDICARE, SELFPAY ==
[2024-04-17 08:46] LABS: Add Manual Diff / Slide Review NO; Basophils Absolute Auto 100 /uL (0-100); Basophils Percent Auto 1.3 % (0-2); Eosinophils Absolute Auto 300 /uL (0-450); Eosinophils Percent Auto 6.6 % (2-4); Hematocrit 37.2 % (36-46); Hemoglobin 12.6 g/dL (12.0-16.0); Lymphocytes Absolute Auto 600 /uL (1100-4500); Lymphocytes Percent Auto 11.6 % (25-40); Mean Corpuscular HGB Conc 33.9 % (30-36); Mean Corpuscular Hemoglobin 31.9 PG (26-34); Mean Corpuscular Volume 94.2 fL (80-100); Monocytes Absolute Auto 700 /uL (0-900); Monocytes Percent Auto 13.6 % (3-14); Neutrophils Absolute Auto 3300 /uL (1500-7000); Neutrophils Percent Auto 66.9 % (50-75); Platelet Count 257 X10^3/uL (150-400); Red Blood Cell Count 3.95 X10^6/uL (4.0-5.2); Red Cell Distribution Width 13.4 % (11.6-14.8)
[2024-04-17 09:03] LABS: HEMOLYSIS < 15 (0-50); Iron 95 ug/dL (37-170)
[2024-04-17 09:07] LABS: Alanine Aminotransferase 16 IU/L (<35); Albumin 4.1 g/dL (3.5-5.0); Albumin Globulin Ratio 1.7 (1.0-2.8); Alkaline Phosphatase 77 U/L (38-126); Aspartate Aminotransferase 22 IU/L (14-36); BUN Creatinine Ratio 30.9 (6-22); Bilirubin Total 0.7 mg/dL (0.2-1.3); Blood Urea Nitrogen 29 mg/dL (7-17); Calcium 9.1 mg/dL (8.4-10.2); Carbon Dioxide 26 mmol/L (22-32); Chloride 95 mmol/L (98-107); Cholesterol 126 mg/dL (140-199); Estimated Glomerular Filt Rate 59 mL/min (>60); Globulin 2.4 g/dL (1.7-4.1); Glucose 100 mg/dL (80-110); HDL Cholesterol 59 mg/dL (40-60); HEMOLYSIS < 15 (0-50); LDL Cholesterol Calculated 52 mg/dL (<100); Potassium 4.2 mmol/L (3.4-5.1); Sodium 128 mmol/L (137-145); Total Protein 6.5 g/dL (6.3-8.2); Triglycerides 73 mg/dL (35-150)
[2024-04-17 09:15] LABS: Percent Iron Saturation 30 % (15-50); Total Iron Binding Capacity 313 ug/dL (265-497); Transferrin 243 mg/dL (206-381)
[2024-04-17 09:35] LABS: Thyroid Stimulating Hormone 0.481 uIU/mL (0.47-4.68)
[2024-04-17 11:17] LABS: Vitamin B12 425 pg/mL (239-931)
== END ==
LOC: LAB 07:57
PROVIDERS: PCP Nurse Practitioner; Referring Provider Nurse Practitioner; Visit Provider Nurse Practitioner
DX: D64.9 Anemia, unspecified (principal); N18.9 Chronic kidney disease, unspecified; R73.01 Impaired fasting glucose; E03.9 Hypothyroidism, unspecified; E78.5 Hyperlipidemia, unspecified; I12.9 Hypertensive chronic kidney disease with stage 1 through stage 4 chronic kidney disease, or unspecified chronic kidney disease
CPT/HCPCS: 36415; 80053; 80061; 82607; 83540; 83550; 84443; 85025

== ENCOUNTER → 2024-04-23 09:35 | Outpatient (CLI) | payer MEDICARE, SELFPAY ==
--- NOTE | 2024-04-23 09:37 | DI.RAD.S_ITS ---
PROCEDURE: XR HIP W PEL IF DONE DESTINY MIN 4V INDICATIONS: RIGHT HIP PAIN TECHNIQUE: AP pelvis with lateral view(s) of the bilateral hip(s). COMPARISON: [facility], , XR HIP W PEL IF DONE LT 2V, 11/21/2020, 15:50. FINDINGS: Bones: No fractures or dislocations. Pelvic ring appears intact. No suspicious bony lesions. Well-aligned, intact left total hip arthroplasty without hardware complication. Nonuniform joint space narrowing of the right hip joint, with subchondral cystic change. Soft tissues: The visualized bowel gas pattern is normal. No suspicious soft tissue calcifications. IMPRESSION: Well-aligned, intact left total hip arthroplasty without hardware complication. Moderate to severe right hip osteoarthritis. Dictated by: Beau Vera M.D. on 04/23/2024 at 10:11 Approved by: Beau Vera M.D. on 04/23/2024 at 10:12
== END ==
PROVIDERS: PCP Nurse Practitioner; Referring Provider Physical Medicine & Rehabilitation; Visit Provider Physical Medicine & Rehabilitation
DX: M16.11 Unilateral primary osteoarthritis, right hip (principal); M25.551 Pain in right hip; Z96.642 Presence of left artificial hip joint
CPT/HCPCS: 73522

== ENCOUNTER → 2024-05-14 12:22 | Outpatient (CLI) | payer MEDICARE, SELFPAY ==
[2024-05-14 14:13] LABS: Alanine Aminotransferase 16 IU/L (<35); Albumin Globulin Ratio 1.9 (1.0-2.8); Alkaline Phosphatase 76 U/L (38-126); Aspartate Aminotransferase 21 IU/L (14-36); Bilirubin Total 0.4 mg/dL (0.2-1.3); Blood Urea Nitrogen 25 mg/dL (7-17); Calcium 9.5 mg/dL (8.4-10.2); Carbon Dioxide 27 mmol/L (22-32); Chloride 101 mmol/L (98-107); Estimated Glomerular Filt Rate 55 mL/min (>60); Globulin 2.1 g/dL (1.7-4.1); Glucose 122 mg/dL (80-110); HEMOLYSIS < 15 (0-50); Magnesium 1.7 mg/dL (1.6-2.3); Potassium 4.5 mmol/L (3.4-5.1); Sodium 134 mmol/L (137-145); Total Protein 6.1 g/dL (6.3-8.2)
[2024-05-14 14:44] LABS: TSH w/ Reflex to FT4 0.03 uIU/mL (0.47-4.68)
[2024-05-14 15:08] LABS: Free T4, Direct Thyroxine 1.44 ng/dL (0.78-2.19)
== END ==
PROVIDERS: PCP Registered Nurse; Referring Provider Nurse Practitioner; Visit Provider Nurse Practitioner
DX: E87.1 Hypo-osmolality and hyponatremia (principal); E03.9 Hypothyroidism, unspecified; I10 Essential (primary) hypertension; T50.905A Adverse effect of unspecified drugs, medicaments and biological substances, initial encounter
CPT/HCPCS: 36415; 80053; 83735; 84439; 84443

== ENCOUNTER → 2024-06-07 13:04 | Outpatient (CLI) | payer MEDICARE, SELFPAY ==
--- NOTE | 2024-06-07 13:07 | DI.MG.S_ITS ---
BILATERAL DIGITAL SCREENING MAMMOGRAM 3D/2D WITH CAD: 06/07/2024 CLINICAL: Routine screening. Comparison is made to exams dated: 06/05/2023 mammogram, 05/24/2022 mammogram, and 05/22/2021 mammogram - [facility]. The breasts are heterogeneously dense, which may obscure small masses (category c / 51-75% glandular tissue). Current study was also evaluated with a Computer Aided Detection (CAD) system. No significant masses, calcifications, or other findings are seen in either breast. There has been no significant interval change. IMPRESSION: NEGATIVE There is no mammographic evidence of malignancy. A 1 year screening mammogram is recommended. This exam was interpreted at Station ID: [id number]. NOTE: For mammograms, a report in lay terms will be sent to the patient. Approximately 15% of breast malignancies will not be visualized mammographically. In the management of a palpable breast mass, a negative mammogram must not discourage biopsy of a clinically suspicious lesion. Electronically Signed By: Antonio ramos/marine:06/07/2024 14:51:31 letter sent: Normal Exam ACR BI-RADS Category 1: Negative
== END ==
PROVIDERS: PCP Registered Nurse; Referring Provider Registered Nurse; Visit Provider Registered Nurse
DX: Z12.31 Encounter for screening mammogram for malignant neoplasm of breast (principal); R92.333 Mammographic heterogeneous density, bilateral breasts
CPT/HCPCS: 77063; 77067

== ENCOUNTER → 2025-03-11 12:38 | Outpatient (CLI) | payer MEDICARE, SELFPAY ==
--- NOTE | 2025-03-11 12:39 | DI.MRI.S_ITS ---
PROCEDURE: MR FOOT RT WO/W CON INDICATIONS: RHEUMATIOD ARTHRITIS FLARE TECHNIQUE: Multiphasic, multisequence MRI of the forefoot was performed, before and after intravenous contrast administration. COMPARISON: None. FINDINGS: Image quality: Excellent. Bones and joints: Mild degenerative changes of the 1st metatarsal phalangeal joint. Small area of erosion within the 1st metatarsal head, consistent with patient's history of rheumatoid arthritis. Small erosion at the 5th metatarsal head. Extensive erosion with marrow edema in the midfoot, involving the tarsometatarsal joint, and the inter tarsal joint, which can be seen the setting of charcoal arthropathy versus rheumatoid arthritis. No acute fracture. Soft tissues: The visualized flexor, and extensor tendons are unremarkable. Moderate fatty atrophy of the intrinsic musculature of the foot, with mild muscle edema. The Lisfranc ligament is intact. No significant intermetatarsal bursitis. IMPRESSION: 1. 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 2. Small erosion in the 1st metatarsal head, and at the 5th metatarsal head, consistent with patient's history of rheumatoid arthritis. Dictated by: Janet Santana M.D. on 03/11/2025 at 17:40 Approved by: Janet Santana M.D. on 03/11/2025 at 17:47
== END ==
LOC: MRI 12:39
PROVIDERS: PCP Registered Nurse; Referring Provider Specialist/Technologist Athletic Trainer; Visit Provider Specialist/Technologist Athletic Trainer
DX: M05.9 Rheumatoid arthritis with rheumatoid factor, unspecified (principal); M06.9 Rheumatoid arthritis, unspecified; M85.871 Other specified disorders of bone density and structure, right ankle and foot
CPT/HCPCS: 73720; A9579

== ENCOUNTER → 2025-06-13 | Outpatient (CLI) | payer MEDICARE, SELFPAY ==
--- NOTE | 2025-06-13 14:09 | DI.MG.S_ITS ---
MM screening mammo BI: 06/13/2025. BI-RADS: 1
== END ==
LOC: MAMMO 14:08
PROVIDERS: PCP Registered Nurse; Referring Provider Registered Nurse; Visit Provider Registered Nurse
DX: Z12.31 Encounter for screening mammogram for malignant neoplasm of breast (principal); R92.333 Mammographic heterogeneous density, bilateral breasts
CPT/HCPCS: 77063; 77067

== ENCOUNTER → 2025-06-23 09:07 | Outpatient (CLI) | payer MEDICARE, SELFPAY ==
--- NOTE | 2025-06-23 | DI.CT.S_ITS ---
PROCEDURE: CT THORACIC SPINE WO CON INDICATIONS: BACK PAIN TECHNIQUE: Noncontrast 3 mm thick sections acquired through the region of interest in the thoracic spine. Sagittal and coronal reformats were then constructed. For radiation dose reduction, the following was used: automated exposure control. COMPARISON: None. FINDINGS: Image quality: Excellent. Bones: Dextrocurvature of the thoracic spine. No significant listhesis. No acute vertebral body compression fractures. No suspicious sclerotic or lytic bony lesions. Multilevel degenerative changes with severe degenerative disc space height loss at multiple levels, most prominent at T2-T3, T3-T4, T10-T11, T11-T12, and T12-L1. Multilevel facet arthropathy, most prominent in the lower thoracic spine. Bony foraminal stenosis as follows: Moderate right-sided foraminal stenosis at T2-T3, moderate to severe at T3-T4, mild at T4-T5, mild at T9-T10, moderate at T10-T11, xdft-os-cwwtlgnl at T11-T12 Mild left-sided foraminal stenosis at T2-T3, moderate at T3-T4, ebfp-jh-xmjofolw T7-T8 bzqg-hw-tdtgoyyc at T8-T9, moderate T9-T10, severe at T10-T11, severe at T11- T12, and moderate to severe at T12-L1. Posterior disc osteophyte complex causes mild spinal canal stenosis at T9-T10 and T11-T12. Soft tissues: No paravertebral masses or hematomas. Large gastric hiatal hernia. Severe coronary artery calcifications. Visualized posteromedial lungs appear clear. IMPRESSION: Degenerative changes of the thoracic spine as above, with multilevel moderate and severe bony foraminal stenoses. No high-grade bony spinal canal stenosis. No acute bony abnormality. Dictated by: Mark Lockwood M.D. on 06/23/2025 at 23:04 Approved by: Mark Lockwood M.D. on 06/23/2025 at 23:17
--- NOTE | 2025-06-23 09:09 | DI.CT.S_ITS ---
PROCEDURE: CT LUMBAR SPINE WO CON INDICATIONS: COMPRESSION fx TECHNIQUE: Noncontrast 3 mm thick sections acquired from the T12 level to the sacrum. Sagittal and coronal reformats were constructed. For radiation dose reduction, the following was used: automated exposure control. COMPARISON: None. FINDINGS: Image quality: Excellent. Bones: Posterior spinal fusion at L4-L5 with osseous bridging across the posterior elements. Mild compression deformities of the L2 and L3 vertebral bodies. There is trace anterolisthesis of L1 on L2, trace retrolisthesis of L2 on L3. There is rightward listhesis of L2 on L3 and levocurvature of the lumbar spine centered on L3. No suspicious lytic or blastic bony lesions. No pars defects. T12-L1: Severe degenerative disc disease with vacuum phenomenon, a posterior disc osteophyte complex, and mild facet arthropathy. Mild to moderate left bony foraminal narrowing. No bony spinal canal stenosis. L1-L2: Severe degenerative disc disease with vacuum phenomenon, posterior disc osteophyte complex and facet arthropathy. Mild bony spinal canal stenosis. Mild to moderate left bony foraminal stenosis. L2-L3: Severe degenerative disc disease with vacuum phenomenon, right eccentric posterior disc osteophyte complex, and severe right greater than left facet arthropathy. Moderate bony spinal canal stenosis. Severe right and moderate to severe left bony neural foraminal stenosis. L3-L4: Severe degenerative disc disease with right eccentric posterior disc osteophyte complex severe right greater than left facet arthropathy. Severe bony spinal canal stenosis and severe right bony neural foraminal stenosis. L4-L5: Status post fixation. No bony spinal canal or foraminal stenosis. L5-S1: Severe degenerative disc disease with posterior disc osteophyte complex, osteophyte eccentric to the right, and mild facet arthropathy. Mild bony spinal canal and bilateral foraminal stenosis. Soft tissues: No retroperitoneal masses or hematomas. Visualized aorta is normal in caliber. Partially visualized left hip arthroplasty. IMPRESSION: Multilevel degenerative changes of the lumbar spine, most notable for severe bony spinal canal stenosis at L3-L4 and multilevel bony foraminal stenoses which are detailed above. Dictated by: Mark Lockwood M.D. on 06/26/2025 at 14:53 Approved by: Mark Lockwood M.D. on 06/26/2025 at 15:14
== END ==
LOC: CT 09:08
PROVIDERS: PCP Registered Nurse; Referring Provider Specialist/Technologist Athletic Trainer; Visit Provider Specialist/Technologist Athletic Trainer
DX: S22.000A Wedge compression fracture of unspecified thoracic vertebra, initial encounter for closed fracture (principal); M51.34 Other intervertebral disc degeneration, thoracic region; M51.35 Other intervertebral disc degeneration, thoracolumbar region; M51.379 Other intervertebral disc degeneration, lumbosacral region without mention of lumbar back pain or lower extremity pain; M51.369 Other intervertebral disc degeneration, lumbar region without mention of lumbar back pain or lower extremity pain; M48.04 Spinal stenosis, thoracic region; M48.05 Spinal stenosis, thoracolumbar region; M48.061 Spinal stenosis, lumbar region without neurogenic claudication; M48.07 Spinal stenosis, lumbosacral region; M47.814 Spondylosis without myelopathy or radiculopathy, thoracic region; M47.815 Spondylosis without myelopathy or radiculopathy, thoracolumbar region; M47.816 Spondylosis without myelopathy or radiculopathy, lumbar region; M47.817 Spondylosis without myelopathy or radiculopathy, lumbosacral region; X58.XXXA Exposure to other specified factors, initial encounter; Z98.1 Arthrodesis status
CPT/HCPCS: 72128; 72131

== ENCOUNTER → 2025-07-22 09:48 | Outpatient (CLI) | payer MEDICARE, SELFPAY ==
--- NOTE | 2025-07-22 09:51 | DI.RAD.S_ITS ---
PROCEDURE: XR DEXA AXIAL SKELETON INDICATIONS: age related osteoporosis COMPARISON: [facility], , XR DEXA AXIAL SKELETON, 04/11/2023, 9:03. [facility], CR, XR DEXA AXIAL SKELETON, 04/20/2020, 13:59. FINDINGS: Lumbar Spine: Not evaluated. Left Femoral Neck: Not evaluated. Left Hip: Not evaluated. Right Femoral Neck: Bone mineral density 0.547 g/cm2, T score -2.7. Right Hip: Bone mineral density 0.649 g/cm2, T score -2.4, osteoporosis. Left Forearm: Bone mineral density 0.533 g/cm2, T score -2.7, osteoporosis. Fracture Risk Calculation (when applicable): Not evaluated due to osteoporosis. (T score greater or equal to -1.0 to: NORMAL) (T score from -1.1 to -2.4: OSTEOPENIA) (T score less than or equal to -2.5: OSTEOPOROSIS) IMPRESSION: Osteoporosis. Follow-up guidelines as follows: Osteoporosis: Consider a repeat DEXA and Vertebral Fracture Assessment (VFA) exam in 2 years or sooner if medically necessary, to reassess this patient's status. Osteopenia: Consider a repeat DEXA in 2-3 years to reassess this patient's status, or if there is a new clinical indication. Normal: Consider a repeat DEXA in 5 years or sooner, or if there is a new clinical indication. All treatment decisions require clinical judgment and consideration of individual patient factors, including patient preferences, comorbidities, previous drug use, risk factors not captured in the FRAX model (e.g., frailty, falls, vitamin D deficiency, increased bone turnover, interval significant decline in bone density ) and possible under- or over-estimation of fracture risk by FRAX. In addition, the NOF Guide recommends that FDA-approved medical therapies be considered in postmenopausal women and men age >= 50 years with a: * Hip or vertebral (clinical or morphometric) fracture * T-score of <=-2.5 at the spine or hip * Ten-year fracture probability by FRAX of >= 3% for hip fracture or >=20% for major osteoporotic fracture. Dictated by: Keely Keene M.D. on 07/24/2025 at 19:06 Approved by: Keely Keene M.D. on 07/24/2025 at 19:07
== END ==
LOC: RAD 09:50
PROVIDERS: PCP Registered Nurse; Referring Provider Registered Nurse; Visit Provider Registered Nurse
DX: M81.0 Age-related osteoporosis without current pathological fracture (principal)
CPT/HCPCS: 77080

== ENCOUNTER → 2025-08-10 13:10 | Outpatient (CLI) | payer MEDICARE, SELFPAY ==
--- NOTE | 2025-08-10 | DI.RAD.S_ITS ---
PROCEDURE: XR CERVICAL SPINE 4V OR 5V INDICATIONS: cervical pain TECHNIQUE: 5 views of the cervical spine were acquired. COMPARISON: None. FINDINGS: Bones: No fractures or dislocations to the T1 level. No suspicious bony lesions. Or multilevel moderate degenerative disc space narrowing most severe at C5-6 and C6-7. Anterior osteophytes are present. Multilevel uncovertebral arthropathy is present. There is normal range of motion between flexion and extension, with preserved normal bony alignment. Soft tissues: Prevertebral soft tissues are normal in thickness. IMPRESSION: Multilevel degenerative changes most severe at C5-6 and C6-7. Dictated by: Daksha Martines M.D. on 08/11/2025 at 1:31 Approved by: Daksha Martines M.D. on 08/11/2025 at 1:32
--- NOTE | 2025-08-10 13:12 | DI.MRI.S_ITS ---
PROCEDURE: MR THORACIC SPINE WO CON INDICATIONS: mid to lowerback pains TECHNIQUE: Noncontrast sagittal T1 spine echo and T2 fast spin echo, sagittal STIR, and T2 fast spin echo through the thoracic spine. COMPARISON: [facility], CT, CT THORACIC SPINE WO CON, 06/23/2025, 9:20. FINDINGS: Image quality: Excellent. Alignment and Curvature: Mild rightward scoliotic curvature. Bone Marrow: Marrow is of normal overall signal. Moderate reactive endplate changes with Schmorl's nodes are present at T10-11, T11-12. No acute vertebral body compression fractures. Spinal Cord: Visualized spinal cord is normal in size and signal. Paraspinous Soft Tissues: No paravertebral masses. Miscellaneous: Multilevel moderate disc desiccation. Right posterior paracentral protrusion with effacement of the anterior thecal sac at T8-9, trace disc bulge T9-10, mild bulge T10-11, T11-12, T12-L1, L1-L2, L2-3. Minimal spinal stenosis T10-11, T12-L1, moderate L1-2, L2-3. Scattered areas of overall mild foraminal narrowing are present. Moderate to severe left foraminal narrowing is present at T11 12 and T12-L1. Moderate left foraminal narrowing is present at T8-9. IMPRESSION: Multilevel disc bulges. Multilevel spinal stenosis most severe at L1-2, L2-3 secondary to disc bulge with contributing effect of facet/ligamentum flavum arthropathy. Multilevel foraminal narrowing most severe at T11-12, T12-L1 secondary to facet and ligamentum flavum arthropathy. Dictated by: Daksha Martines M.D. on 08/11/2025 at 23:57 Approved by: Daksha Martines M.D. on 08/12/2025 at 0:03
--- NOTE | 2025-08-10 13:12 | DI.MRI.S_ITS ---
PROCEDURE: MR LUMBAR SPINE WO CON INDICATIONS: LOWER BACK PAINS TECHNIQUE: Noncontrast sagittal T1 spin echo and T2 fast echo, sagittal STIR, and T2 fast spin echo through the lumbar spine. In cases with scoliosis, additional coronal T2 fast spin echo may be performed. COMPARISON: [facility], CT, CT LUMBAR SPINE WO CON, 06/23/2025, 9:20. [facility], MR, MR THORACIC SPINE WO CON, 08/10/2025, 13:24. [facility], MR, MR LUMBAR SPINE WO CON, 03/10/2021, 14:15. FINDINGS: Image quality: Excellent. Alignment and Curvature: Leftward scoliotic curvature is present with apex at L3. There is trace retrolisthesis of L2 on L3, L5 on S1. Posterior fusion is present at L4-5. Bone Marrow: Marrow is of normal overall signal. No acute vertebral body compression fractures. Spinal Cord: Conus medullaris terminates at the L1 level. Visualized cord demonstrates normal signal and size. Paraspinous Soft Tissues: No paravertebral masses. Discs: Multilevel moderate to severe disc desiccation most significant at L2-3, L5-S1. T12-L1: Mild disc bulge with minimal spinal stenosis. Moderate to severe left foraminal narrowing with facet and ligamentum flavum hypertrophy. L1-L2: Mild disc bulge with moderate spinal stenosis. There is prominent narrowing through the left subarticular recess with overall moderate to severe left and uqyd-wk-zxjbjczv right foraminal narrowing with facet and ligamentum flavum hypertrophy. L2-L3: Mild disc bulge with moderate spinal stenosis. Significant narrowing through the subarticular recess on the right. There is moderate to severe and mild left foraminal narrowing with facet and ligamentum flavum hypertrophy. L3-L4: Mild disc bulge with severe spinal stenosis. Severe right and moderate left foraminal narrowing with mild compression the exiting right L3 nerve roots. L4-L5: Postsurgical changes without spinal stenosis. Mild right and minimal left foraminal narrowing with facet and ligamentum flavum hypertrophy. L5-S1: Mild disc bulge with minimal spinal stenosis. Severe bilateral foraminal narrowing with slight impingement of the exiting L5 nerve roots bilaterally. IMPRESSION: Postsurgical changes at L4-5. Multilevel disc bulges. Multilevel foraminal narrowing most severe at L3-4 and L5-S1 with compression of the exiting nerve roots. Facet and ligamentum flavum arthropathy are present. Multilevel spinal stenosis most severe at L3-4 secondary to disc bulge with contributing effect of facet/ligamentum flavum arthropathy. Dictated by: Daksha Martines M.D. on 08/12/2025 at 0:04 Approved by: Daksha Martines M.D. on 08/12/2025 at 0:09
== END ==
PROVIDERS: PCP Registered Nurse; Referring Provider Physician Assistant; Visit Provider Physician Assistant
DX: S32.010A Wedge compression fracture of first lumbar vertebra, initial encounter for closed fracture (principal); S32.030G Wedge compression fracture of third lumbar vertebra, subsequent encounter for fracture with delayed healing; S22.060A Wedge compression fracture of T7-T8 vertebra, initial encounter for closed fracture; S22.070A Wedge compression fracture of T9-T10 vertebra, initial encounter for closed fracture; M51.34 Other intervertebral disc degeneration, thoracic region; M51.369 Other intervertebral disc degeneration, lumbar region without mention of lumbar back pain or lower extremity pain; M48.04 Spinal stenosis, thoracic region; M48.062 Spinal stenosis, lumbar region with neurogenic claudication; M47.812 Spondylosis without myelopathy or radiculopathy, cervical region; M47.814 Spondylosis without myelopathy or radiculopathy, thoracic region; M47.816 Spondylosis without myelopathy or radiculopathy, lumbar region; X58.XXXA Exposure to other specified factors, initial encounter; Z98.1 Arthrodesis status
CPT/HCPCS: 72050; 72146; 72148